=== PATIENT | female | born 1950 | race Caucasian/White ===

== ENCOUNTER → 2017-10-26 | Outpatient (CLI) | payer BC | END | disposition home or self-care (01) | LOC: KCIC MRI 09:25 | DX: M48.061 Spinal stenosis, lumbar region without neurogenic claudication (principal); M51.27 Other intervertebral disc displacement, lumbosacral region | CPT/HCPCS: 72148 ==

== ENCOUNTER 2019-12-20 11:24 | Inpatient (IN) | payer MEDICARE ==
[2019-12-20] VITALS (8 sets, daily range): BP systolic 114–166; BP diastolic 71–108
[~2019-12-20] VITALS: Ht 162.6 cm; Wt 92.1 kg
[~2019-12-20 11:24] MED LIST: ALPR0.25 PO; BYSTOLIC5 MG PO; CYCL10TA2 PO; FLUT1DIS IH; LEVO125T5 PO; OXYB10TA7 PO; RANI300C PO; SERT100T PO; TRAM50TA PO; VENTOLIN HFA18 GM INH
[2019-12-20] MEDS ORDERED: cefTRIAXone IV Push 1 GM VIAL. IVP ONE (11:45)
[2019-12-20] MEDS ORDERED: IV NORMAL SALINE 1000ML BAG 1,000 ML IV ONE (11:45)
--- NOTE | 2019-12-20 11:56 | RAD ---
EXAM: CHEST 1 VIEW History: Shortness of breath, chest pain COMPARISON: None available. TECHNIQUE: Single portable radiograph of the chest FINDINGS: The cardiac silhouette is unremarkable. Mild prominent appearing right hilum. The costophrenic sulci are clear and well demarcated. IMPRESSION: Mild prominent right hilum probably vascular prominence. Consider CT for further evaluation. Electronically signed by: Abdullahi Olsen MD (12/20/2019 11:53 AM) [id number]
[2019-12-20 12:26] LABS: BASO # 0.1 x10^3/uL (0.0-0.2); BASO % 1 % (0-3); EOS % 0 % (0-3); HEMATOCRIT 31.8 % (36.0-47.0); HEMOGLOBIN 9.7 g/dL (12.0-15.5); LYMPH # 1.1 x10^3/uL (1.0-4.8); LYMPH % 10 % (24-48); MEAN CORPUSCULAR HEMOGLOBIN 21 pg (25-35); MEAN CORPUSCULAR HGB CONC 31 g/dL (31-37); MEAN CORPUSCULAR VOLUME 68 fL (79-100); MONO # 0.5 x10^3/uL (0.0-1.1); MONO % 5 % (0-9); NEUT # 9.2 x10^3/uL (1.8-7.7); NEUT % 84 % (31-73); PLATELET COUNT 400 x10^3/uL (140-400); RED BLOOD COUNT 4.71 x10^6/uL (3.50-5.40); RED CELL DISTRIBUTION WIDTH 23.3 % (11.5-14.5); WHITE BLOOD COUNT 10.9 x10^3/uL (4.0-11.0)
[2019-12-20 12:35] LABS: CALCIUM 9.2 mg/dL (8.5-10.1); GFR 54.8
[2019-12-20 12:36] LABS: PROTHROMBIN TIME PATIENT 13.4 SEC (11.7-14.0)
[2019-12-20 12:41] LABS: ALBUMIN 3.1 g/dL (3.4-5.0); ALBUMIN/GLOBULIN RATIO 0.7 (1.0-1.7); TOTAL BILIRUBIN 0.7 mg/dL (0.2-1.0); TOTAL PROTEIN 7.4 g/dL (6.4-8.2)
[2019-12-20] MEDS ORDERED: IOHEXOL 350 MG/ML 100 ML VIAL. IV ONE (13:00)
--- NOTE | 2019-12-20 13:13 | PDOC2 ---
JONATHAN MEYER [employer] 12/20/19 1313: CARDIAC CONSULT DATE OF CONSULT Date of Consult DATE: 12/20/19 TIME: 13:09 REASON FOR CONSULT Reason for Consult: chest pain, AFIB RVR REFERRING PHYSICIAN Referring Physician: Carrington SOURCE Source: Chart review, Patient HISTORY OF PRESENT ILLNESS HISTORY OF PRESENT ILLNESS This is a pleasant 69 yo female admitted for complains of chest pain and shortness of breath. Reports that 2 weeks ago she twisted her knee and fell. No apparent injury. She also has bad lower back and was told that she needs lumbar fusion. Poisitive for radiculopathy and seen by Dr. Alba before. Her mobility has been decreased significantly in the last 2 weeks due to back and leg pain. No swelling on her legs. 2 days ago she started noticing SALDANA. This progressively got worse and actually woke up with it. She called her PCP reporting that her inhaler has not been working for her asthma. She has been having dry cough and wheezing. Also started having mid chest pressure but no nausea or vomiting. No sensation of palpitations but positive for dizziness. No fever or chills and no recent exposure to covid and she lives alone. She does not have any hx VTE, CAD. She was told of some narrowing of her valves in the past and may be some irregular heart rhythm but does not rrmebr of AFIB and has not been on any anticoagulation nor BP meds. No hx of bleeding or PUD. No HRT. PAST MEDICAL HISTORY Cardiovascular: Valve insufficiency (?) Pulmonary: Asthma CENTRAL NERVOUS SYSTEM: Other (lumbar radiculopathy; brain tumor 5 yrs ago, benign) GI: No pertinent hx Heme/Onc: No pertinent hx Hepatobiliary: No pertinent hx Psych: No pertinent hx Musculoskeletal: low back pain, Osteoarthritis Infectious disease: No pertinent hx ENT: No pertinent hx Renal/: No pertinent hx Endocrine: Hypothyroidism Dermatology: No pertinent hx PAST SURGICAL HISTORY Past Surgical History: Cholecystectomy, , Total knee replacement (bilateral remote), Hysterectomy, Other (craniotomy 5 yrs ago; ovarian cyst removal) FAMILY HISTORY Family History noncontributory to VTE nor CV SOCIAL HISTORY Smoke: No ALCOHOL: none Drugs: None Lives: Alone CURRENT MEDICATIONS CURRENT MEDICATIONS Current Medications Medications (Trade) Dose Ordered Sig/Danuta Route PRN Reason Start Time Stop Time Status Last Admin Dose Admin Sodium Chloride 1,000 ml @ 1,000 mls/hr 1X ONCE IV 12/20/19 11:45 12/20/19 12:44 DC 12/20/19 12:09 Ceftriaxone Sodium (Rocephin) 1 gm 1X ONCE IVP 12/20/19 11:45 12/20/19 11:47 DC 12/20/19 12:07 Metoprolol Tartrate (Lopressor Vial) 5 mg 1X ONCE IVP 12/20/19 13:15 12/20/19 13:16 12/20/19 13:03 ALLERGIES ALLERGIES: Coded Allergies: Sulfa (Sulfonamide Antibiotics) (Verified Allergy, Intermediate, 01/22/16) ROS Review of System 14 point ROS evaluated with pertinent positives noted per HPI PHYSICAL EXAM General: Alert, Oriented X3, Cooperative, No acute distress HEENT: Atraumatic, Mucous membr. moist/pink Lungs: Other (CTA reviewed + PE) Heart: Other (AFIB RVR) Abdomen: Soft, No tenderness Extremities: No cyanosis, No edema Skin: No breakdown, No significant lesion Neuro: Normal speech, Sensation intact Psych/Mental Status: Mental status NL, Mood NL MUSCULOSKELETAL: Osteoarthritic changes both hands VITALS/I&O VITALS/I&O: Vital Signs Date Time Temp Pulse Resp B/P (MAP) Pulse Ox O2 Delivery O2 Flow Rate FiO2 12/20/19 13:03 141 134/89 12/20/19 11:43 97.9 26 85 Nasal Cannula 3.0 97.9 LABS Lab: Laboratory Tests Test 12/20/19 12:05 White Blood Count 10.9 x10^3/uL (4.0-11.0) Red Blood Count 4.71 x10^6/uL (3.50-5.40) Hemoglobin 9.7 g/dL (12.0-15.5) L Hematocrit 31.8 % (36.0-47.0) L Mean Corpuscular Volume 68 fL (79-100) L Mean Corpuscular Hemoglobin 21 pg (25-35) L Mean Corpuscular Hemoglobin Concent 31 g/dL (31-37) Red Cell Distribution Width 23.3 % (11.5-14.5) H Platelet Count 400 x10^3/uL (140-400) Neutrophils (%) (Auto) 84 % (31-73) H Lymphocytes (%) (Auto) 10 % (24-48) L Monocytes (%) (Auto) 5 % (0-9) Eosinophils (%) (Auto) 0 % (0-3) Basophils (%) (Auto) 1 % (0-3) Neutrophils # (Auto) 9.2 x10^3/uL (1.8-7.7) H Lymphocytes # (Auto) 1.1 x10^3/uL (1.0-4.8) Monocytes # (Auto) 0.5 x10^3/uL (0.0-1.1) Eosinophils # (Auto) 0.0 x10^3/uL (0.0-0.7) Basophils # (Auto) 0.1 x10^3/uL (0.0-0.2) Platelet Estimate Pending Prothrombin Time 13.4 SEC (11.7-14.0) Prothrombin Time INR 1.1 (0.8-1.1) Activated Partial Thromboplast Time 34 SEC (24-38) Sodium Level 141 mmol/L (136-145) Potassium Level 4.0 mmol/L (3.5-5.1) Chloride Level 104 mmol/L (98-107) Carbon Dioxide Level 26 mmol/L (21-32) Anion Gap 11 (6-14) Blood Urea Nitrogen 24 mg/dL (7-20) H Creatinine 1.0 mg/dL (0.6-1.0) Estimated GFR (Cockcroft-Gault) 54.8 BUN/Creatinine Ratio 24 (6-20) H Glucose Level 150 mg/dL (70-99) H Lactic Acid Level 2.0 mmol/L (0.4-2.0) Calcium Level 9.2 mg/dL (8.5-10.1) Total Bilirubin 0.7 mg/dL (0.2-1.0) Aspartate Amino Transferase (AST) 26 U/L (15-37) Alanine Aminotransferase (ALT) 25 U/L (14-59) Alkaline Phosphatase 123 U/L (46-116) H Troponin I Quantitative 0.743 ng/mL (0.000-0.055) Total Protein 7.4 g/dL (6.4-8.2) Albumin 3.1 g/dL (3.4-5.0) L Albumin/Globulin Ratio 0.7 (1.0-1.7) L Lipase 89 U/L (73-393) Laboratory Tests 12/20/19 12:05 Laboratory Tests 12/20/19 12:05 ASSESSMENT/PLAN ASSESSMENT/PLAN 1. Chest pain: due to PE, AFIB and RV ischemia 2. Saddle PE 3. AFIB RVR: induced by PE 4. NSTEMI: likely associated RV ischemia with PE 5. Lumbar radiculopathy with significant decreased mobility with recent nontraumatic fall 6. Hypothyroidism: TSH 5 not on goal. on home replacement defer to PCP 7. Microcytic anemia: Fe def. Hgb at 9.7 Recommendations 1. ASA. Start on heparin per PE protocol. Consult pulmonary. Repeat EKG once HR is slower. 2. Presently being tested for covid. Will Obtain LE venous doppler and TTE once confirmed negative 3. Poor response to metoprolol. Dig IV x1 and if remains in RVR then will start on cardizem drip 4. Lipids. MANUEL WHIPPLE MD 12/20/199: CARDIAC CONSULT ASSESSMENT/PLAN ASSESSMENT/PLAN Agree with REGISTERED PHYSICAL THERAPIST's assessment and plan. Start cardizem gtt for AF rate control Trop elevation prob demand ischemia Continue heparin for stroke proph and change to eliquis prior to DC Agree with 2D echo if covid negative Thank you for your consultation JONATHAN MEYER APRN Dec 20, 2019 13:13 MANUEL WHIPPLE MD Dec 20, 2019 21:19
[2019-12-20] MEDS ORDERED: METOPROLOL TARTRATE 5 MG/5 ML VIAL. IVP ONE ×3 (13:15→14:45)
--- NOTE | 2019-12-20 13:21 | PDOC1 ---
History and Physical Date of Admission Date of Admission DATE: 12/20/19 TIME: 13:21 Identification/Chief Complaint Chief Complaint SEEN IN ER WITH ACUTE PE , 69 year old female who was brought here from home due to chest pain substernal started several hours ago. Patient called EMS, they gave her 324 mg aspirin and 1 dose of nitroglycerin. Patient says she has been sick with a cough for about 12 days. Patient denies any fever. Patient denies any history of heart problem. not sure if she been exposed to anybody who had coronavirus. CTA POS PE Past Medical History Cardiovascular: HTN, Hyperlipidemia Family History Family History: High Cholestrol, Hypertension Social History Smoke: <1 pack per day ALCOHOL: none Drugs: None Current Medications Current Medications Current Medications Sodium Chloride 1,000 ml @ 1,000 mls/hr 1X ONCE IV Last administered on 12/20/19at 12:09; Start 12/20/19 at 11:45; Stop 12/20/19 at 12:44; Status DC Ceftriaxone Sodium (Rocephin) 1 gm 1X ONCE IVP Last administered on 12/20/19at 12:07; Start 12/20/19 at 11:45; Stop 12/20/19 at 11:47; Status DC Iohexol (Omnipaque 350 Mg/ml) 90 ml 1X ONCE IV ; Start 12/20/19 at 13:00; Stop 12/20/19 at 13:01; Status DC Metoprolol Tartrate (Lopressor Vial) 5 mg 1X ONCE IVP Last administered on 12/20/19at 13:03; Start 12/20/19 at 13:15; Stop 12/20/19 at 13:16; Status DC Active Scripts Active Reported Ditropan Xl (Oxybutynin Chloride) 10 Mg Tab.er.24 10 Mg PO DAILY Zoloft (Sertraline Hcl) 100 Mg Tablet 100 Mg PO DAILY Ventolin Hfa Inhaler (Albuterol Sulfate) 18 Gm Hfa.aer.ad 2 Puff INH QID Advair 100-50 Diskus (Fluticasone/Salmeterol) 1 Each Disk.w.dev 1 Inh IH BID Xanax (Alprazolam) 0.25 Mg Tablet 0.25 Mg PO PRN Q6HRS PRN Cyclobenzaprine Hcl 10 Mg Tablet 10 Mg PO TID Levothyroxine Sodium 125 Mcg Tablet 125 Mcg PO DAILYAC Ranitidine Hcl 300 Mg Capsule 300 Mg PO DAILY Tramadol Hcl 50 Mg Tablet 50 Mg PO DAILY PRN Bystolic (Nebivolol) 5 Mg Tablet 5 Mg PO DAILY Allergies Allergies: Coded Allergies: Sulfa (Sulfonamide Antibiotics) (Verified Allergy, Intermediate, 01/22/16) ROS Review of System Constitutional: Denies fever or chills. [] Eyes: Denies change in visual acuity. [] HENT: Denies nasal congestion or sore throat. [] Respiratory: Positive for cough and trouble breathing Cardiovascular: Positive for chest pain GI: Denies abdominal pain, nausea, vomiting, bloody stools or diarrhea. [] : Denies dysuria. [] Musculoskeletal: Denies back pain or joint pain. [] Integument: Denies rash. [] Neurologic: Denies headache, focal weakness or sensory changes. [] Endocrine: Denies polyuria or polydipsia. [] Lymphatic: Denies swollen glands. [] Psychiatric: Denies depression or anxiety. [] 14 PT ROS OTHERWISE NEG Hematological and Lymphatic: No: Bleeding Problems, Blood Clots, Blood Transfusions, Brusing, Night Sweats, Pallor, Swollen Lymph Nodes, Other Respiratory: YES: Cough, Shortness of breath Musculoskeletal: Yes Gait Disturbance Physical Exam Physical Exam Constitutional: Well developed, well nourished, MILD acute distress, non-toxic appearance. [] HENT: Normocephalic, atraumatic, bilateral external ears normal, oropharynx moist, no oral exudates, nose normal. [] Eyes: PERRLA, EOMI, conjunctiva normal, no discharge. [] Neck: Normal range of motion, no tenderness, supple, no stridor. [] Cardiovascular: RAPID Heart rate Irregular rhythm, no murmur [] Lungs & Thorax: Bilateral breath sounds with diminshed throughout to auscultation [] Abdomen: Bowel sounds normal, soft, no tenderness, no masses, no pulsatile masses. [] Skin: Warm, dry, no erythema, no rash. [] Back: No tenderness, no CVA tenderness. [] Extremities: No tenderness, no cyanosis, no clubbing, ROM intact, no edema. [] Neurologic: Alert and oriented X 3, normal motor function, normal sensory function, no focal deficits noted. [] Psychologic: Affect normal, judgement normal, mood normal. [] General: Alert, Oriented X3, Cooperative HEENT: Atraumatic, EOMI, Mucous membr. moist/pink Lungs: Normal air movement Breasts: Not examined Abdomen: Normal bowel sounds, Soft Rectal Exam: not examined Extremities: No cyanosis Neuro: Normal speech, Cranial nerves 3-12 NL Psych/Mental Status: Mental status NL, Mood NL Vitals Vitals Vital Signs Date Time Temp Pulse Resp B/P (MAP) Pulse Ox O2 Delivery O2 Flow Rate FiO2 12/20/19 13:03 141 134/89 12/20/19 11:43 97.9 26 85 Nasal Cannula 3.0 97.9 Labs Labs Laboratory Tests Test 12/20/19 12:05 White Blood Count 10.9 x10^3/uL (4.0-11.0) Red Blood Count 4.71 x10^6/uL (3.50-5.40) Hemoglobin 9.7 g/dL (12.0-15.5) Hematocrit 31.8 % (36.0-47.0) Mean Corpuscular Volume 68 fL (79-100) Mean Corpuscular Hemoglobin 21 pg (25-35) Mean Corpuscular Hemoglobin Concent 31 g/dL (31-37) Red Cell Distribution Width 23.3 % (11.5-14.5) Platelet Count 400 x10^3/uL (140-400) Neutrophils (%) (Auto) 84 % (31-73) Lymphocytes (%) (Auto) 10 % (24-48) Monocytes (%) (Auto) 5 % (0-9) Eosinophils (%) (Auto) 0 % (0-3) Basophils (%) (Auto) 1 % (0-3) Neutrophils # (Auto) 9.2 x10^3/uL (1.8-7.7) Lymphocytes # (Auto) 1.1 x10^3/uL (1.0-4.8) Monocytes # (Auto) 0.5 x10^3/uL (0.0-1.1) Eosinophils # (Auto) 0.0 x10^3/uL (0.0-0.7) Basophils # (Auto) 0.1 x10^3/uL (0.0-0.2) Prothrombin Time 13.4 SEC (11.7-14.0) Prothromb Time International Ratio 1.1 (0.8-1.1) Activated Partial Thromboplast Time 34 SEC (24-38) Sodium Level 141 mmol/L (136-145) Potassium Level 4.0 mmol/L (3.5-5.1) Chloride Level 104 mmol/L (98-107) Carbon Dioxide Level 26 mmol/L (21-32) Anion Gap 11 (6-14) Blood Urea Nitrogen 24 mg/dL (7-20) Creatinine 1.0 mg/dL (0.6-1.0) Estimated GFR (Cockcroft-Gault) 54.8 BUN/Creatinine Ratio 24 (6-20) Glucose Level 150 mg/dL (70-99) Lactic Acid Level 2.0 mmol/L (0.4-2.0) Calcium Level 9.2 mg/dL (8.5-10.1) Total Bilirubin 0.7 mg/dL (0.2-1.0) Aspartate Amino Transf (AST/SGOT) 26 U/L (15-37) Alanine Aminotransferase (ALT/SGPT) 25 U/L (14-59) Alkaline Phosphatase 123 U/L (46-116) Troponin I Quantitative 0.743 ng/mL (0.000-0.055) Total Protein 7.4 g/dL (6.4-8.2) Albumin 3.1 g/dL (3.4-5.0) Albumin/Globulin Ratio 0.7 (1.0-1.7) Lipase 89 U/L (73-393) Laboratory Tests Test 12/20/19 12:05 White Blood Count 10.9 x10^3/uL (4.0-11.0) Red Blood Count 4.71 x10^6/uL (3.50-5.40) Hemoglobin 9.7 g/dL (12.0-15.5) Hematocrit 31.8 % (36.0-47.0) Mean Corpuscular Volume 68 fL (79-100) Mean Corpuscular Hemoglobin 21 pg (25-35) Mean Corpuscular Hemoglobin Concent 31 g/dL (31-37) Red Cell Distribution Width 23.3 % (11.5-14.5) Platelet Count 400 x10^3/uL (140-400) Neutrophils (%) (Auto) 84 % (31-73) Lymphocytes (%) (Auto) 10 % (24-48) Monocytes (%) (Auto) 5 % (0-9) Eosinophils (%) (Auto) 0 % (0-3) Basophils (%) (Auto) 1 % (0-3) Neutrophils # (Auto) 9.2 x10^3/uL (1.8-7.7) Lymphocytes # (Auto) 1.1 x10^3/uL (1.0-4.8) Monocytes # (Auto) 0.5 x10^3/uL (0.0-1.1) Eosinophils # (Auto) 0.0 x10^3/uL (0.0-0.7) Basophils # (Auto) 0.1 x10^3/uL (0.0-0.2) Prothrombin Time 13.4 SEC (11.7-14.0) Prothromb Time International Ratio 1.1 (0.8-1.1) Activated Partial Thromboplast Time 34 SEC (24-38) Sodium Level 141 mmol/L (136-145) Potassium Level 4.0 mmol/L (3.5-5.1) Chloride Level 104 mmol/L (98-107) Carbon Dioxide Level 26 mmol/L (21-32) Anion Gap 11 (6-14) Blood Urea Nitrogen 24 mg/dL (7-20) Creatinine 1.0 mg/dL (0.6-1.0) Estimated GFR (Cockcroft-Gault) 54.8 BUN/Creatinine Ratio 24 (6-20) Glucose Level 150 mg/dL (70-99) Lactic Acid Level 2.0 mmol/L (0.4-2.0) Calcium Level 9.2 mg/dL (8.5-10.1) Total Bilirubin 0.7 mg/dL (0.2-1.0) Aspartate Amino Transf (AST/SGOT) 26 U/L (15-37) Alanine Aminotransferase (ALT/SGPT) 25 U/L (14-59) Alkaline Phosphatase 123 U/L (46-116) Troponin I Quantitative 0.743 ng/mL (0.000-0.055) Total Protein 7.4 g/dL (6.4-8.2) Albumin 3.1 g/dL (3.4-5.0) Albumin/Globulin Ratio 0.7 (1.0-1.7) Lipase 89 U/L (73-393) Images Images Study: CT CHEST WITH CONTRAST - PULMONARY ANGIOGRAM History: Chest pain. Shortness of air. Pulmonary embolism. Comparison: None. Technique: Helical CT of the chest performed after the administration of 90 cc Omnipaque 350 intravenous contrast and timed for angiographic evaluation of the pulmonary arteries per PE protocol. Coronal and sagittal 3D MIP reformations were obtained. One or more of the following individualized dose reduction techniques were utilized for this examination: 1. Automated exposure control 2. Adjustment of the mA and/or kV according to patient size 3. Use of iterative reconstruction technique. Findings: Pulmonary Arteries: Extensive pulmonary embolic burden to include a saddle embolism measuring up to 0.8 cm in thickness. Emboli are present within both main pulmonary arteries and involve lobar and segmental branches to all lung lobes. The main pulmonary artery is prominent in transverse dimension at around 3.7 cm and there is right heart strain with interventricular septal deviation, enlargement of the right heart chambers and reflux of injected contrast far into the hepatic veins. Mediastinum: Moderate sized hiatal hernia. Lungs: Mosaic attenuation pattern of the lungs likely relating to oligemia. Ill-defined infiltrate at the subpleural right lower lobe but there is no wedge-shaped consolidation to suggest an infarct at this time. Neck/Axilla/Body Wall: No axillary adenopathy. What is seen of the breast tissue is relatively symmetric. Upper Abdomen: Hepatic steatosis. Surgically absent gallbladder. Fatty infiltration of the pancreas. Small exophytic focus off the upper pole of the right kidney, image 148 series 4, measures around 10 Hounsfield units most compatible with a cyst. Similar finding at the anterior aspect of the upper right kidney. No adrenal gland mass. Bones: Partially imaged advanced arthrosis at the right shoulder. Multifocal degenerative changes throughout the visualized spine on a background of sigmoid curvature. Varying degrees of osseous neural foraminal encroachment. Chronic ununited fracture of the lateral right eighth rib. Miscellaneous: None. IMPRESSION: 1. Extensive acute pulmonary emboli to include a saddle embolism, emboli within both main pulmonary arteries and involvement of the lobar and segmental branches to all lung lobes. This results in pronounced right heart strain. No well-formed pulmonary infarct at this time. 2. Moderate-sized hiatal hernia, hepatic steatosis and additional chronic findings as above. FOR INTERNAL CODING PURPOSES RESULT CODE: (C) The results of the study were discussed with Dr. Shultz by Dr. Reeder via telephone on 12/20/2019 at 1340 hours. Electronically signed by: KT REEDER MD (12/20/2019 1:56 PM) [id number] DICTATED and SIGNED BY: KT REEDER MD DATE: 12/20/19 1356 EXAM: CHEST 1 VIEW History: Shortness of breath, chest pain COMPARISON: None available. TECHNIQUE: Single portable radiograph of the chest FINDINGS: The cardiac silhouette is unremarkable. Mild prominent appearing right hilum. The costophrenic sulci are clear and well demarcated. IMPRESSION: Mild prominent right hilum probably vascular prominence. Consider CT for further evaluation. Electronically signed by: Abdullahi Olsen MD (12/20/2019 11:53 AM) [id number] DICTATED and SIGNED BY: ABDULLAHI OLSEN MD DATE: 12/20/19 1153 VTE Prophylaxis Ordered VTE Prophylaxis Devices: No VTE Pharmacological Prophylaxi: Yes Assessment/Plan Assessment/Plan IMPRESSION 1. Chest pain: due to PE, AFIB and RV ischemia Extensive acute pulmonary emboli to include a saddle embolism, emboli within both main pulmonary arteries and involvement of the lobar and segmental branches to all lung lobes. // pronounced right heart strain. No well-formed pulmonary infarct at this time. 2. Moderate-sized hiatal hernia, hepatic steatosis 3. Saddle PE ACUTE 4. AFIB RVR: 5. NSTEMI: likely associated RV ischemia with PE 6. Lumbar radiculopathy // recent nontraumatic fall 7. Hypothyroidism: TSH 5 8. Microcytic anemia: Fe 9. MORBID OBESITY PLAN 1. heparin per PE protocol. Consult pulmonary. 2. R/O covid. -19 3,LE venous doppler and TTE once confirmed negative 4. Metoprolol IV. If not wheezing then will start on metoprolol PO. 5. Lipids. 6. CONSULT CARDIOLOGY 7. CONSULT PULM 77 MIN pt exam, chart review, > 50% of time spent with exam, chart review, pt care coordination Justicifation of Admission Dx: Justifications for Admission: Justification of Admission Dx: Yes Comments: OMER Joshi MD Dec 20, 2019 13:21
[2019-12-20] MEDS ORDERED: HEPARIN for IV BOLUS 10,000 UNIT/10 ML VIAL. IV PRN ×3 (13:30→14:15)
[2019-12-20] MEDS ORDERED: HEPARIN 25,000UTS/250ML PREMIX 250 ML IV PRN (13:30)
[2019-12-20 13:37] LABS: CHOLESTEROL/HDL RATIO 2.2
[2019-12-20] MEDS ORDERED: ONDANSETRON PF 4 MG/2 ML VIAL. IV PRN (13:45)
[2019-12-20 13:57] LABS: PLT ESTIMATE ADEQUATE (ADEQUATE)
--- NOTE | 2019-12-20 13:57 | PHYS DOC ---
Past Medical History Past Medical History: Asthma Additional Past Medical Histor: CHRONIC BACK PAIN Past Surgical History: Cholecystectomy, Knee Replacement Smoking Status: Never Smoker Alcohol Use: None General Adult EDM: Chief Complaint: CHEST PAIN HPI: HPI: Patient is a 69 year old female who was brought here from home due to chest pain substernal started several hours ago. Patient called EMS, they gave her 324 mg aspirin and 1 dose of nitroglycerin. Patient says she has been sick with a cough for about 12 days. Patient denies any fever. Patient denies any history of heart problem. Patient is not sure if she been exposed to anybody who had the coronavirus. Patient had no history of blood clot disorder. Patient denied recent travel or operation. Review of Systems: Review of Systems: Constitutional: Denies fever or chills. [] Eyes: Denies change in visual acuity. [] HENT: Denies nasal congestion or sore throat. [] Respiratory: Positive for cough and trouble breathing Cardiovascular: Positive for chest pain GI: Denies abdominal pain, nausea, vomiting, bloody stools or diarrhea. [] : Denies dysuria. [] Musculoskeletal: Denies back pain or joint pain. [] Integument: Denies rash. [] Neurologic: Denies headache, focal weakness or sensory changes. [] Endocrine: Denies polyuria or polydipsia. [] Lymphatic: Denies swollen glands. [] Psychiatric: Denies depression or anxiety. [] Heart Score: HEART Score for Chest Pain: HEART Score for Chest Pain Response (Comments) Value History Moderately Suspicious 1 ECG Nonspecific Repolarizatio 1 Age > 65 2 Risk Factors 1 or 2 Risk Factors 1 Troponin >1-<3x Normal Limit 1 Total 6 Risk Factors: Risk Factors: DM, Current or recent (<one month) smoker, HTN, HLP, family history of CAD, obesity. Risk Scores: Score 0 - 3: 2.5% MACE over next 6 weeks - Discharge Home Score 4 - 6: 20.3% MACE over next 6 weeks - Admit for Clinical Observation Score 7 - 10: 72.7% MACE over next 6 weeks - Early Invasive Strategies Current Medications: Current Medications Medications (Trade) Dose Ordered Sig/Danuta Start Time Stop Time Status Last Admin Dose Admin Ceftriaxone Sodium (Rocephin) 1 gm 1X ONCE 12/20/19 11:45 12/20/19 11:47 DC 12/20/19 12:07 1 GM Heparin Sodium (Porcine) (Heparin Sodium) 2,150 unit PRN Q6HRS PRN 12/20/19 13:30 12/20/19 13:45 2,150 UNIT Heparin Sodium/ Dextrose 250 ml @ 0 mls/hr CONT PRN 12/20/19 13:30 12/20/19 13:47 10.4 MLS/HR Iohexol (Omnipaque 350 Mg/ml) 90 ml 1X ONCE 12/20/19 13:00 12/20/19 13:01 DC Metoprolol Tartrate (Lopressor Vial) 5 mg 1X ONCE 12/20/19 13:15 12/20/19 13:16 DC 12/20/19 13:03 5 MG Ondansetron HCl (Zofran) 4 mg PRN Q8HRS PRN 12/20/19 13:45 12/21/19 13:44 Sodium Chloride 1,000 ml @ 1,000 mls/hr 1X ONCE 12/20/19 11:45 12/20/19 12:44 DC 12/20/19 12:09 1,000 MLS/HR Allergies: Allergies: Allergies Coded Allergies Type Severity Reaction Last Updated Verified Sulfa (Sulfonamide Antibiotics) Allergy Intermediate 01/22/16 Yes Physical Exam: PE: Constitutional: Well developed, well nourished, MILD acute distress, non-toxic appearance. [] HENT: Normocephalic, atraumatic, bilateral external ears normal, oropharynx moist, no oral exudates, nose normal. [] Eyes: PERRLA, EOMI, conjunctiva normal, no discharge. [] Neck: Normal range of motion, no tenderness, supple, no stridor. [] Cardiovascular: RAPID Heart rate Irregular rhythm, no murmur [] Lungs & Thorax: Bilateral breath sounds with diminshed throughout to auscultation [] Abdomen: Bowel sounds normal, soft, no tenderness, no masses, no pulsatile masses. [] Skin: Warm, dry, no erythema, no rash. [] Back: No tenderness, no CVA tenderness. [] Extremities: No tenderness, no cyanosis, no clubbing, ROM intact, no edema. [] Neurologic: Alert and oriented X 3, normal motor function, normal sensory function, no focal deficits noted. [] Psychologic: Affect normal, judgement normal, mood normal. [] Current Patient Data: Labs: Laboratory Tests Test 12/20/19 12:05 White Blood Count 10.9 x10^3/uL (4.0-11.0) Red Blood Count 4.71 x10^6/uL (3.50-5.40) Hemoglobin 9.7 g/dL (12.0-15.5) L Hematocrit 31.8 % (36.0-47.0) L Mean Corpuscular Volume 68 fL (79-100) L Mean Corpuscular Hemoglobin 21 pg (25-35) L Mean Corpuscular Hemoglobin Concent 31 g/dL (31-37) Red Cell Distribution Width 23.3 % (11.5-14.5) H Platelet Count 400 x10^3/uL (140-400) Neutrophils (%) (Auto) 84 % (31-73) H Lymphocytes (%) (Auto) 10 % (24-48) L Monocytes (%) (Auto) 5 % (0-9) Eosinophils (%) (Auto) 0 % (0-3) Basophils (%) (Auto) 1 % (0-3) Neutrophils # (Auto) 9.2 x10^3/uL (1.8-7.7) H Lymphocytes # (Auto) 1.1 x10^3/uL (1.0-4.8) Monocytes # (Auto) 0.5 x10^3/uL (0.0-1.1) Eosinophils # (Auto) 0.0 x10^3/uL (0.0-0.7) Basophils # (Auto) 0.1 x10^3/uL (0.0-0.2) Platelet Estimate Pending Prothrombin Time 13.4 SEC (11.7-14.0) Prothrombin Time INR 1.1 (0.8-1.1) Activated Partial Thromboplast Time 34 SEC (24-38) D-Dimer (Yadira) 6.57 ug/mlFEU (0.00-0.50) H Sodium Level 141 mmol/L (136-145) Potassium Level 4.0 mmol/L (3.5-5.1) Chloride Level 104 mmol/L (98-107) Carbon Dioxide Level 26 mmol/L (21-32) Anion Gap 11 (6-14) Blood Urea Nitrogen 24 mg/dL (7-20) H Creatinine 1.0 mg/dL (0.6-1.0) Estimated GFR (Cockcroft-Gault) 54.8 BUN/Creatinine Ratio 24 (6-20) H Glucose Level 150 mg/dL (70-99) H Lactic Acid Level 2.0 mmol/L (0.4-2.0) Calcium Level 9.2 mg/dL (8.5-10.1) Magnesium Level 2.0 mg/dL (1.8-2.4) Total Bilirubin 0.7 mg/dL (0.2-1.0) Aspartate Amino Transferase (AST) 26 U/L (15-37) Alanine Aminotransferase (ALT) 25 U/L (14-59) Alkaline Phosphatase 123 U/L (46-116) H Troponin I Quantitative 0.743 ng/mL (0.000-0.055) Total Protein 7.4 g/dL (6.4-8.2) Albumin 3.1 g/dL (3.4-5.0) L Albumin/Globulin Ratio 0.7 (1.0-1.7) L Triglycerides Level 78 mg/dL (0-150) Cholesterol Level 130 mg/dL (0-200) LDL Cholesterol, Calculated 54 mg/dL (0-100) VLDL Cholesterol, Calculated 16 mg/dL (0-40) Non-HDL Cholesterol Calculated 70 mg/dL (0-129) HDL Cholesterol 60 mg/dL (40-60) Cholesterol/HDL Ratio 2.2 Lipase 89 U/L (73-393) Thyroid Stimulating Hormone (TSH) 5.058 uIU/mL (0.358-3.74) H Laboratory Tests 12/20/19 12:05 Laboratory Tests 12/20/19 12:05 Vital Signs: Vital Signs Date Time Temp Pulse Resp B/P (MAP) Pulse Ox O2 Delivery O2 Flow Rate FiO2 12/20/19 13:03 141 134/89 12/20/19 11:43 97.9 26 85 Nasal Cannula 3.0 97.9 EKG: EKG: EKG was done at 1129, heart rate of 143 beats per minute, A. fib with RVR, no ST segment elevation. Radiology/Procedures: Radiology/Procedures: [][facility] [address] [place] [address] IMAGING REPORT Signed PATIENT: JOSE CARL ACCOUNT: [id number] : 1950 LOCATION: ER AGE: 69 SEX: F EXAM STATUS: PRE ER ORD. PHYSICIAN: AIMEE LAWSON DO REASON: soa, chest pain PROCEDURE: CHEST AP ONLY EXAM: CHEST 1 VIEW History: Shortness of breath, chest pain COMPARISON: None available. TECHNIQUE: Single portable radiograph of the chest FINDINGS: The cardiac silhouette is unremarkable. Mild prominent appearing right hilum. The costophrenic sulci are clear and well demarcated. IMPRESSION: Mild prominent right hilum probably vascular prominence. Consider CT for further evaluation. Electronically signed by: Abdullahi Olsen MD (12/20/2019 11:53 AM) [id number] DICTATED and SIGNED BY: ABDULLAHI OLSEN MD DATE: 12/20/19 1152 Course & Med Decision Making: Course & Med Decision Making Pertinent Labs and Imaging studies reviewed. (See chart for details) Patient is a 69-year-old female who was brought here for evaluation due to chest pain that started several hours ago. Patient also has been sick with cough for about 12 days. Patient is suspected of COVID-19 infection. Upon arrival to ER, patient's heart rate was between 130 to 150 bpm, atrial fibrillation with RVR. Patient was found to have a saddle embolus, her blood pressure however has been good. Discussed with interventional radiologist Dr. Doug Buckley who recommended heparin treatment, no IV TPA due to normal blood pressure. Discussed with Dr. Chaney about afib with RVR. Discussed with Dr. Glass , hospitalist who agreed to admit patient. Critical care time was [45] minutes which includes time at bedside, spent in discussion of patient's care with specialist and/or family members, with interpretation of laboratory and/or radiological studies and is exclusive of procedures. Dragon Disclaimer: Dragon Disclaimer: This electronic medical record was generated, in whole or in part, using a voice recognition dictation system. Departure Departure Impression: Primary Impression: Saddle embolism of pulmonary artery Additional Impressions: Chest pain Atrial fibrillation with RVR Suspected COVID-19 virus infection Disposition: 09 ADMITTED INPATIENT Admitting Physician: TORSTEN MarDR. GLASS) Condition: IMPROVED Referrals: UNKNOWN PCP NAME (PCP) Justicifation of Admission Dx: Justifications for Admission: Justification of Admission Dx: Yes AIMEE LAWSON DO Dec 20, 2019 13:57
[2019-12-20 13:58] LABS: ANISOCYTOSIS MOD; MICROCYTOSIS MARKED; OVALOCYTES FEW
[2019-12-20 13:59] LABS: HYPOCHROMIA MOD; POLYCHROMASIA SLIGHT
--- NOTE | 2019-12-20 13:59 | RAD ---
Study: CT CHEST WITH CONTRAST - PULMONARY ANGIOGRAM History: Chest pain. Shortness of air. Pulmonary embolism. Comparison: None. Technique: Helical CT of the chest performed after the administration of 90 cc Omnipaque 350 intravenous contrast and timed for angiographic evaluation of the pulmonary arteries per PE protocol. Coronal and sagittal 3D MIP reformations were obtained. One or more of the following individualized dose reduction techniques were utilized for this examination: 1. Automated exposure control 2. Adjustment of the mA and/or kV according to patient size 3. Use of iterative reconstruction technique. Findings: Pulmonary Arteries: Extensive pulmonary embolic burden to include a saddle embolism measuring up to 0.8 cm in thickness. Emboli are present within both main pulmonary arteries and involve lobar and segmental branches to all lung lobes. The main pulmonary artery is prominent in transverse dimension at around 3.7 cm and there is right heart strain with interventricular septal deviation, enlargement of the right heart chambers and reflux of injected contrast far into the hepatic veins. Mediastinum: Moderate sized hiatal hernia. Lungs: Mosaic attenuation pattern of the lungs likely relating to oligemia. Ill-defined infiltrate at the subpleural right lower lobe but there is no wedge-shaped consolidation to suggest an infarct at this time. Neck/Axilla/Body Wall: No axillary adenopathy. What is seen of the breast tissue is relatively symmetric. Upper Abdomen: Hepatic steatosis. Surgically absent gallbladder. Fatty infiltration of the pancreas. Small exophytic focus off the upper pole of the right kidney, image 148 series 4, measures around 10 Hounsfield units most compatible with a cyst. Similar finding at the anterior aspect of the upper right kidney. No adrenal gland mass. Bones: Partially imaged advanced arthrosis at the right shoulder. Multifocal degenerative changes throughout the visualized spine on a background of sigmoid curvature. Varying degrees of osseous neural foraminal encroachment. Chronic ununited fracture of the lateral right eighth rib. Miscellaneous: None. IMPRESSION: 1. Extensive acute pulmonary emboli to include a saddle embolism, emboli within both main pulmonary arteries and involvement of the lobar and segmental branches to all lung lobes. This results in pronounced right heart strain. No well-formed pulmonary infarct at this time. 2. Moderate-sized hiatal hernia, hepatic steatosis and additional chronic findings as above. FOR INTERNAL CODING PURPOSES RESULT CODE: (C) The results of the study were discussed with Dr. Shultz by Dr. Reeder via telephone on 12/20/2019 at 1340 hours. Electronically signed by: KT REEDER MD (12/20/2019 1:56 PM) [id number]
[2019-12-20 14:02] LABS: TOXIC GRANULATION SLIGHT
[2019-12-20] MEDS ORDERED: METOPROLOL SUCC 24HR ER 25 MG TAB.ER.24H. PO SCH (14:30)
[2019-12-20] MEDS: HEPARIN 25,000UTS/250ML PREMIX 250 ML IV PRN (14:31)
[2019-12-20] MEDS ORDERED: ASPIRIN ENTERIC COATED 325 MG TABLET.DR. PO ONE (14:45)
[2019-12-20] MEDS ORDERED: DIGOXIN IV 500 MCG/2 ML AMPUL. IV ONE (16:15)
--- NOTE | 2019-12-20 16:22 | CONS ---
DATE OF CONSULTATION: PULMONARY CONSULTATION ATTENDING PHYSICIAN: Dr. Paula. REASON FOR CONSULTATION: Acute pulmonary embolism. HISTORY OF PRESENT ILLNESS: The patient is a 69-year-old pleasant female with a BMI of 32.8. No significant tobacco history. She presented to the Emergency Room with complaint of chest pain and shortness of breath. She states that 2 weeks ago, she twisted her knee and fell. There was no obvious injury. She also has been battling with bad lower back pain and she was told by Dr. Alba that she would need lumbar fusion. Her mobility has been decreased in the last few weeks. The patient began to have shortness of breath and chest pain. She also said that she had at least twice near syncopal episodes. She denied any leg swelling. No headaches, no nausea, vomiting, no diarrhea, no dysuria. She has no prior history of thromboembolic disease. No family history of thromboembolic disease. She was noted to be in atrial fibrillation with RVR, as a part of workup CTA chest was performed and it showed extensive acute pulmonary emboli including a saddle embolism within both main pulmonary arteries and involvement of the lobar and segmental branches to all the lobes. There was evidence of some right heart strain. There was moderate size hiatal hernia and hepatic steatosis. I saw the patient in the Emergency Room. She appeared to be comfortable while on nasal cannula at 5 liters with saturation of 93%. Her blood pressure was stable, ranging 127 systolic to 138 systolic. Consultation requested for further evaluation and management. PAST MEDICAL HISTORY: History of lumbar radiculopathy. History of benign brain tumor 5 years ago. No recent surgeries in the last 6 weeks. No history of any malignancy. No history of any bleeding ulcer. History of low back pain, history of osteoarthritis, and hypothyroidism. PAST SURGICAL HISTORY: Cholecystectomy, , total knee replacement, bilateral. History of hysterectomy and craniotomy 5 years ago and history of ovarian cyst removal. FAMILY HISTORY: Noncontributory to any thromboembolic disease. There is no family history of thromboembolic disease. SOCIAL HISTORY: Nonsmoker, nonalcoholic. ALLERGIES: SULFA. MEDICATIONS: That were given in the ER were reviewed including heparin per protocol. REVIEW OF SYSTEMS: Twelve-point system obtained. Pertinent positives discussed in my history of present illness, otherwise noncontributory. All systems that were negative were reviewed as well. PHYSICAL EXAMINATION: GENERAL: She is comfortable while on nasal cannula at 5 liters 93% saturation. VITAL SIGNS: Blood pressure is stable. HEENT: Sclerae nonicteric. NECK: Supple. LUNGS: With diminished breath sounds. CARDIOVASCULAR: With a regular rate. ABDOMEN: Soft, obese. EXTREMITIES: With no pitting edema. LABORATORY DATA: Reviewed. Her D-dimer was 6.57. BUN 24, creatinine 1.0. TSH 5.05. White cell count 10.9, hemoglobin 9.7, platelets are 400. IMPRESSION: 1. Acute hypoxic respiratory failure secondary to acute pulmonary embolism with hemodynamic stability . Risk factor is likely related to recent immobility for the last 2 weeks due to her lumbar radiculopathy and also from the fall when she twisted her knee. Underlying obesity would be another risk factor. She has no known cancers. Not on any form of estrogens. 2. Atrial fibrillation with rapid ventricular response, likely caused by right ventricular strain. 3. No significant tobacco history. 4. No history of any hypercoagulable state. RECOMMENDATIONS: 1. Discussed with the patient and RN. At this time, she is hemodynamically stable and we will continue with heparin per protocol. 2. I did discuss with her that in case if she becomes hemodynamically unstable, she may be a candidate for thrombolytic therapy. She does not have any risk factors for bleeding and she is agreeable with that if needed. 3. Management of AFib with RVR per Cardiology. 4. Obtain echocardiogram to assess for RV dysfunction. 5. Follow troponin level. Her initial level was 0.74 suggestive of RV ischemia. 6. Obtain venous Dopplers of lower extremities. 7. We will consider obtaining hypercoagulable panel as an outpatient. 8. Discussed with RN. Discussed with ER physician. We will follow the patient in the ICU under close observation. Critical care time 37 minutes including review of the chart, imaging studies and discussion with the patient regarding the plan of care. MARGE GLOVER MD DR: VICKEY/edith JOB#: [id number] / [id number] ANDREW
[2019-12-20] MEDS: DILTIAZEM HCL 125 MG in IV NORMAL SALINE 100ML 100 ML IV PRN (16:57)
[2019-12-20] MEDS: CYCLOBENZAPRINE 10 MG TABLET. PO SCH (21:00)
[2019-12-21] VITALS (27 sets, daily range): BP systolic 65–150; BP diastolic 48–92
[2019-12-21] MEDS: DILTIAZEM HCL 125 MG in IV NORMAL SALINE 100ML 100 ML IV PRN ×3 (00:09→19:05)
[2019-12-21] MEDS: LEVOTHYROXINE 125 MCG TABLET PO SCH (05:50)
[2019-12-21 06:06] LABS: BILIRUBIN,URINE NEGATIVE (NEG); CLARITY,URINE CLEAR; COLOR,URINE YELLOW; NITRITE,URINE NEGATIVE (NEG); PROTEIN,URINE NEGATIVE (NEG-TRACE); UROBILINOGEN,URINE 0.2 mg/dL (0.2 mg/dL)
--- NOTE | 2019-12-21 06:15 | EKG ---
[facility] [address] [place] [address] Test Date: 2019-12-20 Test Time: 11:29:52 Pat Name: JOSE CARL Department: Room: Gender: F Veneer Taper: : 1950 Requested By: AIMEE LAWSON Order Number: [id number] Reading MD: Measurements Intervals [place] Rate: 143 P: [place]: QRS: -15 QRSD: 76 T: 64 QT: 304 QTc: 475 Interpretive Statements IRREGULAR RHYTHM, NO P-WAVE FOUND LEFTWARD AXIS ST & T ABNORMALITY, CONSIDER HIGH LATERAL ISCHEMIA OR LEFT VENTRICULAR STRAIN ABNORMAL ECG RI6.02 No previous ECG available for comparison
[2019-12-21 06:39] LABS: BACTERIA,URINE 0 /HPF (0-FEW)
[2019-12-21 06:56] LABS: HEMATOCRIT 30.9 % (36.0-47.0); HEMOGLOBIN 9.5 g/dL (12.0-15.5); RED BLOOD COUNT 4.53 x10^6/uL (3.50-5.40); RED CELL DISTRIBUTION WIDTH 23.2 % (11.5-14.5); WHITE BLOOD COUNT 10.6 x10^3/uL (4.0-11.0)
[2019-12-21 06:58] LABS: CALCIUM 8.8 mg/dL (8.5-10.1); CREATININE 0.8 mg/dL (0.6-1.0); GFR 70.9; POTASSIUM 3.8 mmol/L (3.5-5.1)
[2019-12-21 07:38] LABS: MAGNESIUM 2.1 mg/dL (1.8-2.4); PHOSPHORUS 3.2 mg/dL (2.6-4.7)
[2019-12-21] MEDS: CYCLOBENZAPRINE 10 MG TABLET. PO SCH ×3 (08:18→20:59)
[2019-12-21] MEDS ORDERED: ALTEPLASE 100 MG IV ONE (09:00)
--- NOTE | 2019-12-21 09:20 | PDOC ---
Provider Note Provider Note Note dictated will give TPA for massive PE/ RV infarction Justicifation of Admission Dx: Justifications for Admission: Justification of Admission Dx: Yes MARGE GLOVER MD Dec 21, 2019 09:20
--- NOTE | 2019-12-21 09:38 | PN ---
DATE: 12/21/2019 SUBJECTIVE: The patient has progressively become more hypoxic since last night and early this morning. She is currently on BiPAP at 100% FiO2, saturations are 98-99%. She is still hemodynamically stable. She has evidence of markedly increased troponin up to 31, suggesting severe RV ischemia. PHYSICAL EXAMINATION: GENERAL: She is alert, awake, on 100% BiPAP. Responds to questions. VITAL SIGNS: Blood pressure 130/63, pulse ox is 100% on 100% FiO2 with BiPAP. NECK: Supple. LUNGS: With diminished breath sounds bilaterally. CARDIOVASCULAR: With a regular rate. ABDOMEN: Soft. EXTREMITIES: With no pitting edema. LABORATORY DATA: Reviewed. White cell count 10.6, hemoglobin 9.5 and platelets are 381. BUN is 21 and a creatinine of 0.8. Troponin level is 31.9. IMPRESSION: 1. Acute hypoxic respiratory failure with worsening hypoxia, now on 100% FiO2 secondary to massive pulmonary embolism. 2. Markedly increased troponin level secondary to severe right ventricular infarction and ischemia. 3. Atrial fibrillation with rapid ventricular response on admission, caused by right ventricular strain. 4. No history of hypercoagulable state. 5. No absolute contraindication for TPA. RECOMMENDATIONS: 1. Discussed with the patient, her daughter and RN and RT. At this point, she is requiring 100% oxygen and her hypoxia has worsened. She has evidence of severe RV infarction with a troponin level of 31. I did a stat echocardiogram and it shows RV dilatation and no wall motion abnormality to suggest LV ischemia. She would be a candidate for TPA. I have also discussed with Dr. Chaney, Cardiology and he concurs with that. I have also discussed with Interventional Radiology, Dr. Buckley and there is no mortality benefit with catheter-directed TPA. We will do systemic TPA, 100 mg of TPA over 2 hours. 2. All the side effects of TPA including 4-5% chance of bleeding was explained to the patient and the daughterLisset in detail and the benefits of TPA exceeds the risk and they all agreed to proceed with it. 3. At some point, she may need a left heart cath. 4. Obtain venous Dopplers of lower extremities. 5. Suspicion for COVID is low. Awaiting the results. 6. Critical care time 45 minutes including discussion with multiple physicians, patient's daughter, the patient herself and decision making and review of the labs, and data. MARGE GLOVER MD DR: Leonid JOB#: [id number] / [id number]
--- NOTE | 2019-12-21 11:07 | CARD ---
MR#: [id number] Date of Study: 12/21/2019 Ordering Physician: MARGE GLOVER, Referring Physician: MARGE GLOVER, Tech: Jannette Castillo APPROVED REPORT EXAM: Two-dimensional and M-mode echocardiogram with Doppler and color Doppler. Other Information Quality : AverageHR: 104bpm INDICATION elevated Troponin 2D DIMENSIONS RVDd4.3 (2.9-3.5cm)Left Atrium(2D)4.0 (1.6-4.0cm) IVSd1.4 (0.7-1.1cm)Aortic Root(2D)3.1 (2.0-3.7cm) LVDd3.1 (3.9-5.9cm)LVOT Diameter1.8 (1.8-2.4cm) PWd1.2 (0.7-1.1cm)LVDs2.6 (2.5-4.0cm) FS (%) 18.8 %SV15.8 ml LVEF(%)40.0 (>50%) Aortic Valve AoV Peak Ruddy.160.6cm/sAoV VTI23.5cm AO Peak GR.10.3mmHgLVOT VTI 15.04cm AO Mean GR.6mmHg TDI Lateral E' P. V11.01cm/sMedial E' P. V9.14cm/s Tricuspid Valve TR P. [id number] [id number] TR Peak Gr.[id number] LEFT VENTRICLE The left ventricle is normal size. There is mild to moderate concentric left ventricular hypertrophy. The left ventricular systolic function is normal and the ejection fraction is within normal range. T he Ejection Fraction is 50%. There is normal LV segmental wall motion. Tissue Doppler imaging reveals moderate left ventricular diastolic dysfunction. RIGHT VENTRICLE The right ventricle is moderately to severly dilated measuring 5.2 cm. There is normal right ventricu lar wall thickness. The right ventricular systolic function is normal. ATRIA The left atrium is borderline dilated. The right atrium is moderately dilated. The interatrial septum bows toward left atrium consistent with elevated right atrial pressure. The interatrial septum is in tact with no evidence for an atrial septal defect or patent foramen ovale as noted on 2-D or Doppler imaging. AORTIC VALVE The aortic valve is thickened but opens well. Doppler and Color Flow revealed no significant aortic r egurgitation. There is no significant aortic valvular stenosis. Calculated aortic valve area is 1.69 cm2 with maximum pressure gradient of 10 mmHg and mean pressure gradient of 6 mmHg. MITRAL VALVE The mitral valve is thickened but opens well. There is no evidence of mitral valve prolapse. There is no mitral valve stenosis. Doppler and Color-flow revealed trace mitral regurgitation. TRICUSPID VALVE The tricuspid valve is normal in structure and function. Doppler and Color Flow revealed mild to mode rate tricuspid regurgitation with an estimated PAP of 71 mmHg. There is no tricuspid valve stenosis. PULMONIC VALVE The pulmonic valve is not well visualized. Doppler and Color Flow revealed trace to mild pulmonic tobin vular regurgitation. There is no pulmonic valvular stenosis. GREAT VESSELS The aortic root is normal in size. The IVC is dilated. PERICARDIAL EFFUSION There is no evidence of significant pericardial effusion. Critical Notification Critical Value: No <Conclusion> The left ventricular systolic function is normal and the ejection fraction is within normal range. Th e Ejection Fraction is 50%. There is normal LV segmental wall motion. The right ventricle is moderately to severly dilated measuring 5.2 cm. Doppler and Color Flow revealed mild to moderate tricuspid regurgitation with an estimated PAP of 71 mmHg. Signed by : Vitaliy Dixon, Electronically Approved : 12/21/2019 11:06:49
--- NOTE | 2019-12-21 12:24 | PDOC ---
[facility] [facility] PROGRESS NOTE Date of Service DOS: DATE: 12/21/19 TIME: 12:07 Chief Complaint Chief Complaint Acute hypoxic respiratory failure with worsening hypoxia secondary to saddle pulmonary embolism Markedly increased troponin level secondary to severe right ventricular infarction and ischemia Atrial fibrillation with rapid ventricular response induced by PE Hypertension Hyperlipidemia Lumbar radiculopathy with significant decreased mobility with recent nontraumatic fall Hypothyroidism Microcytic anemia History of Present Illness History of Present Illness 12/21/19 Patient seen and examined in the ICU Hypoxia is worsening and she is requiring 100% oxygen on BiPAP Troponin increased to 31, she has begun tPA per Dr. Buckley Echo this AM showed normal LV wall motion, EF 50%, RV dilation secondary to tricuspid regurgitation Awaiting COVID results Discussed with RN Chart reviewed Vitals/I&O Vitals/I&O: Vital Signs Date Time Temp Pulse Resp B/P (MAP) Pulse Ox O2 Delivery O2 Flow Rate FiO2 12/21/19 10:15 106 33 131/68 (89) 100 BiPAP/CPAP 12/21/19 08:00 97.9 97.9 12/20/19 22:00 15.0 I & O 12/20/19 12/20/19 12/21/19 15:00 23:00 07:00 Intake Total 1000 ml 50 ml 520.2 ml Output Total 275 ml 285 ml Balance 1000 ml -225 ml 235.2 ml Physical Exam General: Alert, Oriented X3, Cooperative, mild distress Heart: Other (AFIB RVR) Abdomen: Normal bowel sounds, Soft, No tenderness Extremities: No clubbing, No cyanosis Skin: No rashes, No breakdown, No significant lesion Labs Labs: Laboratory Tests Test 12/20/19 18:00 12/20/19 20:30 12/21/19 04:45 12/21/19 06:15 Troponin I Quantitative 10.842 ng/mL (0.000-0.055) 31.936 ng/mL (0.000-0.055) Heparin Anti-Xa Act, Unfractionated 1.00 IU/mL (0.30-0.70) 0.81 IU/mL (0.30-0.70) Urine Collection Type Unknown Urine Color Yellow Urine Clarity Clear Urine pH 5.0 (<5.0-8.0) Urine Specific [place] >=1.030 (1.000-1.030) Urine Protein Negative mg/dL (NEG-TRACE) Urine Glucose (UA) Negative mg/dL (NEG) Urine Ketones (Stick) 40 mg/dL (NEG) Urine Blood Negative (NEG) Urine Nitrite Negative (NEG) Urine Bilirubin Negative (NEG) Urine Urobilinogen Dipstick 0.2 mg/dL (0.2 mg/dL) Urine Leukocyte Esterase Negative (NEG) Urine RBC 6-10 /HPF (0-2) Urine WBC 5-10 /HPF (0-4) Urine Squamous Epithelial Cells None /LPF Urine Bacteria 0 /HPF (0-FEW) Urine Mucus Marked /LPF White Blood Count 10.6 x10^3/uL (4.0-11.0) Red Blood Count 4.53 x10^6/uL (3.50-5.40) Hemoglobin 9.5 g/dL (12.0-15.5) Hematocrit 30.9 % (36.0-47.0) Mean Corpuscular Volume 68 fL (79-100) Mean Corpuscular Hemoglobin 21 pg (25-35) Mean Corpuscular Hemoglobin Concent 31 g/dL (31-37) Red Cell Distribution Width 23.2 % (11.5-14.5) Platelet Count 381 x10^3/uL (140-400) Sodium Level 139 mmol/L (136-145) Potassium Level 3.8 mmol/L (3.5-5.1) Chloride Level 104 mmol/L (98-107) Carbon Dioxide Level 24 mmol/L (21-32) Anion Gap 11 (6-14) Blood Urea Nitrogen 21 mg/dL (7-20) Creatinine 0.8 mg/dL (0.6-1.0) Estimated GFR (Cockcroft-Gault) 70.9 Glucose Level 105 mg/dL (70-99) Calcium Level 8.8 mg/dL (8.5-10.1) Phosphorus Level 3.2 mg/dL (2.6-4.7) Magnesium Level 2.1 mg/dL (1.8-2.4) Assessment and Plan Assessmemt and Plan Problems Medical Problems: (1) Atrial fibrillation with RVR Status: Acute (2) Chest pain Status: Acute (3) Saddle embolism of pulmonary artery Status: Acute (4) Suspected COVID-19 virus infection Status: Acute ASSESSMENT Acute hypoxic respiratory failure with worsening hypoxia secondary to saddle pulmonary embolism Markedly increased troponin level secondary to severe right ventricular infarction and ischemia Atrial fibrillation with rapid ventricular response induced by PE Hypertension Hyperlipidemia Lumbar radiculopathy with significant decreased mobility with recent nontraumatic fall Hypothyroidism Microcytic anemia PLAN Undergoing tPA Oxygen supplementation with BiPAP Venous Doppler and TREVOR per cardiology Monitor hemoglobin Monitor ABGs Home meds Awaiting COVID results Full code Appreciate cardiology and pulmonology input Total time 31 min Comment Review of Relevant I have reviewed the following items winifred (where applicable) has been applied. Medications: Current Medications Medications (Trade) Dose Ordered Sig/Danuta Route PRN Reason Start Time Stop Time Status Last Admin Dose Admin Metoprolol Tartrate (Lopressor Vial) 5 mg 1X ONCE IVP 12/20/19 13:15 12/20/19 13:16 DC 12/20/19 13:03 Heparin Sodium/ Dextrose 250 ml @ 0 mls/hr CONT PRN IV PER PROTOCOL 12/20/19 13:30 12/20/19 14:19 DC 12/20/19 13:47 Heparin Sodium (Porcine) (Heparin Sodium) 2,150 unit PRN Q6HRS PRN IV FOR UFH LEVEL LESS THAN 0.2 12/20/19 13:30 12/20/19 14:19 DC 12/20/19 13:45 Ondansetron HCl (Zofran) 4 mg PRN Q8HRS PRN IV NAUSEA/VOMITING 12/20/19 13:45 12/21/19 13:44 12/20/19 17:31 Heparin Sodium/ Dextrose 250 ml @ 0 mls/hr CONT PRN IV PER PROTOCOL 12/20/19 14:15 12/20/19 14:31 Metoprolol Tartrate (Lopressor Vial) 5 mg 1X ONCE IVP 12/20/19 14:45 12/20/19 14:46 DC 12/20/19 14:52 Digoxin (Lanoxin) 500 mcg 1X ONCE IV 12/20/19 16:15 12/20/19 16:16 DC 12/20/19 15:59 Diltiazem HCl 125 mg/Sodium Chloride 125 ml @ 5 mls/hr CONT PRN IV SEE I/O RECORD 12/20/19 16:00 12/21/19 09:56 Levothyroxine Sodium (Synthroid) 125 mcg DAILY06 PO 8/13/20 06:00 12/21/19 05:50 Alteplase, Recombinant 100 ml @ 50 mls/hr 1X ONCE IV 12/21/19 09:00 12/21/19 10:59 DC 12/21/19 09:22 Justicifation of Admission Dx: Justifications for Admission: Justification of Admission Dx: Yes TOO DARNELL III DO Dec 21, 2019 12:23
--- NOTE | 2019-12-21 13:50 | NUR ---
SS following for discharge planning. SS reviewed pt chart and discussed with pt RN. Pt is from home and is currently on the BIPAP. COVID19 pending. Pt has clot in pulmonary artery and had TPA today. SS will continue to follow for discharge planning.
[2019-12-21] MEDS: ANTI-COAG MONITOR BY PHARMACY. MC PRN (14:45)
[2019-12-21] MEDS ORDERED: CETI10TA16 PO (15:18)
--- NOTE | 2019-12-21 16:38 | PDOC ---
PROGRESS NOTES Date of Service: DATE: 12/21/19 TIME: 16:38 Subjective Subjective s/p tPA earlier today, feeling better, on O2 5L, denied any CP Objective Objective Vital Signs Date Time Temp Pulse Resp B/P (MAP) Pulse Ox O2 Delivery O2 Flow Rate FiO2 12/21/19 16:07 93 Nasal Cannula 5.0 12/21/19 15:00 100 22 116/67 (83) 12/21/19 12:00 98.7 98.7 Intake and Output 12/21/19 07:00 Intake Total 1570.2 ml Output Total 560 ml Balance 1010.2 ml Intake Oral 220 ml IV Total 1350.2 ml Output Urine Total 560 ml Physical Exam Abdomen: Normal bowel sounds, Soft, No tenderness Heart: Other (AFIB RVR) Extremities: No clubbing, No cyanosis General: Alert, Oriented X3, Cooperative, mild distress HEENT: Atraumatic, EOMI, Mucous membr. moist/pink Lungs: Normal air movement MUSCULOSKELETAL: Osteoarthritic changes both hands Neuro: Normal speech, Cranial nerves 3-12 NL Psych/Mental Status: Mental status NL, Mood NL Skin: No rashes, No breakdown, No significant lesion Assessment Assessment 1. NSTEMI: prob RV strain from saddle PE, but since top significantly elevated, we will plan cath once more stable, possibly wednesday. LVEF 50% on echo 2. Acute resp failure secondary to Saddle PE s/p tPA, doing better. Pulm following 3. AFIB RVR: induced by PE, HR better controlled, change CAM to PO. 4. Hypothyroidism: per IM Plan Plan of Care Problems Medical Problems: (1) Atrial fibrillation with RVR Status: Acute (2) Chest pain Status: Acute (3) Saddle embolism of pulmonary artery Status: Acute (4) Suspected COVID-19 virus infection Status: Acute Comment Review of Relevant I have reviewed the following items winifred (where applicable) has been applied. Labs Laboratory Tests Test 12/20/19 18:00 12/20/19 20:30 12/21/19 04:45 12/21/19 06:15 Troponin I Quantitative 10.842 ng/mL (0.000-0.055) 31.936 ng/mL (0.000-0.055) Heparin Anti-Xa Act, Unfractionated 1.00 IU/mL (0.30-0.70) 0.81 IU/mL (0.30-0.70) Urine Collection Type Unknown Urine Color Yellow Urine Clarity Clear Urine pH 5.0 (<5.0-8.0) Urine Specific [place] >=1.030 (1.000-1.030) Urine Protein Negative mg/dL (NEG-TRACE) Urine Glucose (UA) Negative mg/dL (NEG) Urine Ketones (Stick) 40 mg/dL (NEG) Urine Blood Negative (NEG) Urine Nitrite Negative (NEG) Urine Bilirubin Negative (NEG) Urine Urobilinogen Dipstick 0.2 mg/dL (0.2 mg/dL) Urine Leukocyte Esterase Negative (NEG) Urine RBC 6-10 /HPF (0-2) Urine WBC 5-10 /HPF (0-4) Urine Squamous Epithelial Cells None /LPF Urine Bacteria 0 /HPF (0-FEW) Urine Mucus Marked /LPF White Blood Count 10.6 x10^3/uL (4.0-11.0) Red Blood Count 4.53 x10^6/uL (3.50-5.40) Hemoglobin 9.5 g/dL (12.0-15.5) Hematocrit 30.9 % (36.0-47.0) Mean Corpuscular Volume 68 fL (79-100) Mean Corpuscular Hemoglobin 21 pg (25-35) Mean Corpuscular Hemoglobin Concent 31 g/dL (31-37) Red Cell Distribution Width 23.2 % (11.5-14.5) Platelet Count 381 x10^3/uL (140-400) Sodium Level 139 mmol/L (136-145) Potassium Level 3.8 mmol/L (3.5-5.1) Chloride Level 104 mmol/L (98-107) Carbon Dioxide Level 24 mmol/L (21-32) Anion Gap 11 (6-14) Blood Urea Nitrogen 21 mg/dL (7-20) Creatinine 0.8 mg/dL (0.6-1.0) Estimated GFR (Cockcroft-Gault) 70.9 Glucose Level 105 mg/dL (70-99) Calcium Level 8.8 mg/dL (8.5-10.1) Phosphorus Level 3.2 mg/dL (2.6-4.7) Magnesium Level 2.1 mg/dL (1.8-2.4) Test 12/21/19 11:42 Troponin I Quantitative 26.727 ng/mL (0.000-0.055) Microbiology 12/20/19 Blood Culture - Preliminary, Resulted NO GROWTH AFTER 1 DAY Medications Current Medications Alprazolam (Xanax) 0.25 mg PRN Q6HRS PRN PO ANXIETY / AGITATION; Start 12/21/19 at 15:30 Alteplase, Recombinant 100 ml @ 50 mls/hr 1X ONCE IV Last administered on 12/21/19at 09:22; Start 12/21/19 at 09:00; Stop 12/21/19 at 10:59; Status DC Cyclobenzaprine HCl (Flexeril) 10 mg TID PO ; Start 12/20/19 at 21:00 Info (Anti-Coagulation Monitoring By Pharmacy) 1 each PRN DAILY PRN MC SEE COMMENTS Last administered on 12/21/19at 14:45; Start 12/21/19 at 08:30 Levothyroxine Sodium (Synthroid) 125 mcg DAILY06 PO Last administered on 12/21/19at 05:50; Start 12/21/19 at 06:00 Tramadol HCl (Ultram) 50 mg PRN DAILY PRN PO PAIN; Start 12/20/19 at 18:45 Vitals/I & O Vital Sign - Last 24 Hours 12/20/19 12/20/19 12/20/19 12/20/19 16:54 18:00 18:15 18:30 Temp 98.5 98.5 Pulse 132 128 124 124 Resp 20 20 20 B/P (MAP) 152/107 (122) 141/77 (98) 145/82 (103) Pulse Ox 99 95 95 95 O2 Delivery NonRebreather Mask NonRebreather Mask NonRebreather Mask NonRebreather Mask O2 Flow Rate 15.0 15.0 15.0 15.0 12/20/19 12/20/19 12/20/19 12/20/19 18:45 19:00 19:00 20:00 Temp 98.7 98.7 Pulse 126 120 120 112 Resp 20 24 20 32 B/P (MAP) 145/108 (120) 134/89 (104) 134/89 (104) 166/98 (120) Pulse Ox 95 98 95 92 O2 Delivery NonRebreather Mask NonRebreather Mask NonRebreather Mask NonRebreather Mask O2 Flow Rate 15.0 15.0 15.0 15.0 12/20/19 12/20/19 12/20/19 12/20/19 20:00 21:00 22:00 22:30 Pulse 118 100 Resp 30 24 B/P (MAP) 140/81 (100) 114/71 (85) Pulse Ox 90 70 99 O2 Delivery Non-Rebreather NonRebreather Mask NonRebreather Mask BiPAP/CPAP O2 Flow Rate 15.0 15.0 15.0 12/20/19 12/20/19 12/20/19 12/21/19 23:00 23:50 23:59 00:01 Temp 98.0 98.0 Pulse 114 105 Resp 24 26 B/P (MAP) 144/86 (105) 124/89 (101) Pulse Ox 95 95 93 O2 Delivery BiPAP/CPAP BiPAP/CPAP Bi-pap BiPAP/CPAP 12/21/19 12/21/19 12/21/19 12/21/19 01:00 02:00 03:00 03:45 Pulse 80 87 102 Resp 24 B/P (MAP) 140/92 (108) 146/71 (96) 125/77 (93) Pulse Ox 93 93 99 100 O2 Delivery BiPAP/CPAP BiPAP/CPAP BiPAP/CPAP BiPAP/CPAP 12/21/19 12/21/19 12/21/19 12/21/19 04:00 04:00 05:00 06:00 Temp 98.9 98.9 Pulse 104 106 121 Resp 24 24 24 B/P (MAP) 128/67 (87) 114/66 (82) 130/70 (90) Pulse Ox 99 99 99 O2 Delivery Bi-pap BiPAP/CPAP BiPAP/CPAP BiPAP/CPAP 12/21/19 12/21/19 12/21/19 12/21/19 07:00 08:00 08:00 08:45 Temp 97.9 97.9 Pulse 112 110 Resp 30 30 B/P (MAP) 130/63 (85) 128/68 (88) Pulse Ox 100 100 99 O2 Delivery BiPAP/CPAP BiPAP/CPAP Bi-pap BiPAP/CPAP 12/21/19 12/21/19 12/21/19 12/21/19 09:00 09:15 09:30 09:45 Pulse 114 112 114 110 Resp 30 30 33 31 B/P (MAP) 128/75 (92) 140/66 (90) 114/67 (83) 65/48 (54) Pulse Ox 100 100 100 100 O2 Delivery BiPAP/CPAP BiPAP/CPAP BiPAP/CPAP BiPAP/CPAP 12/21/19 12/21/19 12/21/19 12/21/19 10:00 10:15 12:00 12:00 Temp 98.7 98.7 Pulse 110 106 110 Resp 30 33 35 B/P (MAP) 114/67 (83) 131/68 (89) 137/62 (87) Pulse Ox 100 100 100 O2 Delivery BiPAP/CPAP BiPAP/CPAP Bi-pap BiPAP/CPAP 12/21/19 12/21/19 12/21/19 12/21/19 12:25 13:00 14:00 15:00 Pulse 105 104 100 Resp 40 40 22 B/P (MAP) 118/57 (77) 118/63 (81) 116/67 (83) Pulse Ox 100 100 100 96 O2 Delivery BiPAP/CPAP BiPAP/CPAP BiPAP/CPAP Nasal Cannula O2 Flow Rate 5.0 12/21/19 16:07 Pulse Ox 93 O2 Delivery Nasal Cannula O2 Flow Rate 5.0 Intake and Output 12/20/19 12/20/19 12/21/19 15:00 23:00 07:00 Intake Total 1000 ml 50 ml 520.2 ml Output Total 275 ml 285 ml Balance 1000 ml -225 ml 235.2 ml MANUEL WHIPPLE MD Dec 21, 2019 16:38
--- NOTE | 2019-12-21 19:48 | RAD ---
INDICATION: Pulmonary embolus with evaluation for thrombus load within the legs. COMPARISON: None. TECHNIQUE: Grayscale, color and doppler ultrasound images were obtained of the bilateral lower extremity venous vasculature. RIGHT: No thrombus identified in the common femoral vein, femoral vein, popliteal vein or visualized calf veins. LEFT: Thrombus is seen within the left leg extending from the common femoral through the superficial femoral, popliteal and into some of the calf veins. IMPRESSION: * Deep vein thrombosis seen on the left. Electronically signed by: Chapin Conroy MD (12/21/2019 7:44 PM) [id number]
[2019-12-21] MEDS: FAMOTIDINE 20 MG TABLET. PO PRN (23:29)
[2019-12-22] VITALS (17 sets, daily range): BP systolic 100–153; BP diastolic 57–102
[2019-12-22 03:23] LABS: BASO # 0.1 x10^3/uL (0.0-0.2); BASO % 1 % (0-3); EOS # 0.2 x10^3/uL (0.0-0.7); EOS % 2 % (0-3); HEMATOCRIT 26.7 % (36.0-47.0); HEMOGLOBIN 8.4 g/dL (12.0-15.5); LYMPH # 1.7 x10^3/uL (1.0-4.8); LYMPH % 16 % (24-48); MEAN CORPUSCULAR HEMOGLOBIN 21 pg (25-35); MEAN CORPUSCULAR HGB CONC 31 g/dL (31-37); MEAN CORPUSCULAR VOLUME 67 fL (79-100); MONO # 0.6 x10^3/uL (0.0-1.1); MONO % 6 % (0-9); NEUT # 7.6 x10^3/uL (1.8-7.7); NEUT % 75 % (31-73); PLATELET COUNT 327 x10^3/uL (140-400); RED BLOOD COUNT 3.99 x10^6/uL (3.50-5.40); RED CELL DISTRIBUTION WIDTH 22.7 % (11.5-14.5); WHITE BLOOD COUNT 10.2 x10^3/uL (4.0-11.0)
[2019-12-22] MEDS: DILTIAZEM HCL 125 MG in IV NORMAL SALINE 100ML 100 ML IV PRN (03:24)
[2019-12-22 03:31] LABS: CALCIUM 8.1 mg/dL (8.5-10.1); CREATININE 1.1 mg/dL (0.6-1.0); GFR 49.1; POTASSIUM 3.5 mmol/L (3.5-5.1)
[2019-12-22] MEDS: LEVOTHYROXINE 125 MCG TABLET PO SCH (05:48)
--- NOTE | 2019-12-22 08:35 | PDOC ---
PULMONARY PROGRESS NOTES DATE: 12/22/19 TIME: 08:29 Subjective Pt. is S/P systemic TPA on 12/21/2019, now on N/C oxygen no SOB, or cough or CP Vitals Vital Signs Date Time Temp Pulse Resp B/P (MAP) Pulse Ox O2 Delivery O2 Flow Rate FiO2 12/22/19 06:00 98 26 149/68 (95) 95 Nasal Cannula 5.0 12/22/19 04:00 98.4 98.4 ROS: No Nausea, No Chest Pain, No Abdominal Pain, No Increase Cough General: Alert Lungs: Clear Cardiovascular: S1, S2 Abdomen: Soft, Non-tender Neuro Exam: Alert Extremities: No Edema Skin: Warm Labs Laboratory Tests Test 12/20/19 12:05 12/20/19 12:14 12/20/19 18:00 12/20/19 20:30 White Blood Count 10.9 x10^3/uL (4.0-11.0) Red Blood Count 4.71 x10^6/uL (3.50-5.40) Hemoglobin 9.7 g/dL (12.0-15.5) Hematocrit 31.8 % (36.0-47.0) Mean Corpuscular Volume 68 fL (79-100) Mean Corpuscular Hemoglobin 21 pg (25-35) Mean Corpuscular Hemoglobin Concent 31 g/dL (31-37) Red Cell Distribution Width 23.3 % (11.5-14.5) Platelet Count 400 x10^3/uL (140-400) Neutrophils (%) (Auto) 84 % (31-73) Lymphocytes (%) (Auto) 10 % (24-48) Monocytes (%) (Auto) 5 % (0-9) Eosinophils (%) (Auto) 0 % (0-3) Basophils (%) (Auto) 1 % (0-3) Neutrophils # (Auto) 9.2 x10^3/uL (1.8-7.7) Lymphocytes # (Auto) 1.1 x10^3/uL (1.0-4.8) Monocytes # (Auto) 0.5 x10^3/uL (0.0-1.1) Eosinophils # (Auto) 0.0 x10^3/uL (0.0-0.7) Basophils # (Auto) 0.1 x10^3/uL (0.0-0.2) Toxic Granulation Slight Platelet Estimate Adequate (ADEQUATE) Polychromasia Slight Hypochromasia Mod Anisocytosis Mod Microcytosis Marked Ovalocytes Few Schistocytes Prothrombin Time 13.4 SEC (11.7-14.0) Prothromb Time International Ratio 1.1 (0.8-1.1) Activated Partial Thromboplast Time 34 SEC (24-38) D-Dimer (Yadira) 6.57 ug/mlFEU (0.00-0.50) Sodium Level 141 mmol/L (136-145) Potassium Level 4.0 mmol/L (3.5-5.1) Chloride Level 104 mmol/L (98-107) Carbon Dioxide Level 26 mmol/L (21-32) Anion Gap 11 (6-14) Blood Urea Nitrogen 24 mg/dL (7-20) Creatinine 1.0 mg/dL (0.6-1.0) Estimated GFR (Cockcroft-Gault) 54.8 BUN/Creatinine Ratio 24 (6-20) Glucose Level 150 mg/dL (70-99) Lactic Acid Level 2.0 mmol/L (0.4-2.0) Calcium Level 9.2 mg/dL (8.5-10.1) Magnesium Level 2.0 mg/dL (1.8-2.4) Total Bilirubin 0.7 mg/dL (0.2-1.0) Aspartate Amino Transf (AST/SGOT) 26 U/L (15-37) Alanine Aminotransferase (ALT/SGPT) 25 U/L (14-59) Alkaline Phosphatase 123 U/L (46-116) Troponin I Quantitative 0.743 ng/mL (0.000-0.055) 10.842 ng/mL (0.000-0.055) Total Protein 7.4 g/dL (6.4-8.2) Albumin 3.1 g/dL (3.4-5.0) Albumin/Globulin Ratio 0.7 (1.0-1.7) Triglycerides Level 78 mg/dL (0-150) Cholesterol Level 130 mg/dL (0-200) LDL Cholesterol, Calculated 54 mg/dL (0-100) VLDL Cholesterol, Calculated 16 mg/dL (0-40) Non-HDL Cholesterol Calculated 70 mg/dL (0-129) HDL Cholesterol 60 mg/dL (40-60) Cholesterol/HDL Ratio 2.2 Lipase 89 U/L (73-393) Thyroid Stimulating Hormone (TSH) 5.058 uIU/mL (0.358-3.74) Coronavirus (PCR) Not detected (Not Detected) Heparin Anti-Xa Act, Unfractionated 1.00 IU/mL (0.30-0.70) Test 12/21/19 04:45 12/21/19 06:15 12/21/19 11:42 12/21/19 21:00 Urine Collection Type Unknown Urine Color Yellow Urine Clarity Clear Urine pH 5.0 (<5.0-8.0) Urine Specific [place] >=1.030 (1.000-1.030) Urine Protein Negative mg/dL (NEG-TRACE) Urine Glucose (UA) Negative mg/dL (NEG) Urine Ketones (Stick) 40 mg/dL (NEG) Urine Blood Negative (NEG) Urine Nitrite Negative (NEG) Urine Bilirubin Negative (NEG) Urine Urobilinogen Dipstick 0.2 mg/dL (0.2 mg/dL) Urine Leukocyte Esterase Negative (NEG) Urine RBC 6-10 /HPF (0-2) Urine WBC 5-10 /HPF (0-4) Urine Squamous Epithelial Cells None /LPF Urine Bacteria 0 /HPF (0-FEW) Urine Mucus Marked /LPF White Blood Count 10.6 x10^3/uL (4.0-11.0) Red Blood Count 4.53 x10^6/uL (3.50-5.40) Hemoglobin 9.5 g/dL (12.0-15.5) Hematocrit 30.9 % (36.0-47.0) Mean Corpuscular Volume 68 fL (79-100) Mean Corpuscular Hemoglobin 21 pg (25-35) Mean Corpuscular Hemoglobin Concent 31 g/dL (31-37) Red Cell Distribution Width 23.2 % (11.5-14.5) Platelet Count 381 x10^3/uL (140-400) Heparin Anti-Xa Act, Unfractionated 0.81 IU/mL (0.30-0.70) 0.52 IU/mL (0.30-0.70) Sodium Level 139 mmol/L (136-145) Potassium Level 3.8 mmol/L (3.5-5.1) Chloride Level 104 mmol/L (98-107) Carbon Dioxide Level 24 mmol/L (21-32) Anion Gap 11 (6-14) Blood Urea Nitrogen 21 mg/dL (7-20) Creatinine 0.8 mg/dL (0.6-1.0) Estimated GFR (Cockcroft-Gault) 70.9 Glucose Level 105 mg/dL (70-99) Calcium Level 8.8 mg/dL (8.5-10.1) Phosphorus Level 3.2 mg/dL (2.6-4.7) Magnesium Level 2.1 mg/dL (1.8-2.4) Troponin I Quantitative 31.936 ng/mL (0.000-0.055) 26.727 ng/mL (0.000-0.055) Test 12/22/19 03:00 White Blood Count 10.2 x10^3/uL (4.0-11.0) Red Blood Count 3.99 x10^6/uL (3.50-5.40) Hemoglobin 8.4 g/dL (12.0-15.5) Hematocrit 26.7 % (36.0-47.0) Mean Corpuscular Volume 67 fL (79-100) Mean Corpuscular Hemoglobin 21 pg (25-35) Mean Corpuscular Hemoglobin Concent 31 g/dL (31-37) Red Cell Distribution Width 22.7 % (11.5-14.5) Platelet Count 327 x10^3/uL (140-400) Neutrophils (%) (Auto) 75 % (31-73) Lymphocytes (%) (Auto) 16 % (24-48) Monocytes (%) (Auto) 6 % (0-9) Eosinophils (%) (Auto) 2 % (0-3) Basophils (%) (Auto) 1 % (0-3) Neutrophils # (Auto) 7.6 x10^3/uL (1.8-7.7) Lymphocytes # (Auto) 1.7 x10^3/uL (1.0-4.8) Monocytes # (Auto) 0.6 x10^3/uL (0.0-1.1) Eosinophils # (Auto) 0.2 x10^3/uL (0.0-0.7) Basophils # (Auto) 0.1 x10^3/uL (0.0-0.2) Heparin Anti-Xa Act, Unfractionated 0.70 IU/mL (0.30-0.70) Sodium Level 136 mmol/L (136-145) Potassium Level 3.5 mmol/L (3.5-5.1) Chloride Level 103 mmol/L (98-107) Carbon Dioxide Level 27 mmol/L (21-32) Anion Gap 6 (6-14) Blood Urea Nitrogen 23 mg/dL (7-20) Creatinine 1.1 mg/dL (0.6-1.0) Estimated GFR (Cockcroft-Gault) 49.1 Glucose Level 134 mg/dL (70-99) Calcium Level 8.1 mg/dL (8.5-10.1) Laboratory Tests Test 12/21/19 11:42 12/21/19 21:00 12/22/19 03:00 Troponin I Quantitative 26.727 ng/mL (0.000-0.055) Heparin Anti-Xa Act, Unfractionated 0.52 IU/mL (0.30-0.70) 0.70 IU/mL (0.30-0.70) White Blood Count 10.2 x10^3/uL (4.0-11.0) Red Blood Count 3.99 x10^6/uL (3.50-5.40) Hemoglobin 8.4 g/dL (12.0-15.5) Hematocrit 26.7 % (36.0-47.0) Mean Corpuscular Volume 67 fL (79-100) Mean Corpuscular Hemoglobin 21 pg (25-35) Mean Corpuscular Hemoglobin Concent 31 g/dL (31-37) Red Cell Distribution Width 22.7 % (11.5-14.5) Platelet Count 327 x10^3/uL (140-400) Neutrophils (%) (Auto) 75 % (31-73) Lymphocytes (%) (Auto) 16 % (24-48) Monocytes (%) (Auto) 6 % (0-9) Eosinophils (%) (Auto) 2 % (0-3) Basophils (%) (Auto) 1 % (0-3) Neutrophils # (Auto) 7.6 x10^3/uL (1.8-7.7) Lymphocytes # (Auto) 1.7 x10^3/uL (1.0-4.8) Monocytes # (Auto) 0.6 x10^3/uL (0.0-1.1) Eosinophils # (Auto) 0.2 x10^3/uL (0.0-0.7) Basophils # (Auto) 0.1 x10^3/uL (0.0-0.2) Sodium Level 136 mmol/L (136-145) Potassium Level 3.5 mmol/L (3.5-5.1) Chloride Level 103 mmol/L (98-107) Carbon Dioxide Level 27 mmol/L (21-32) Anion Gap 6 (6-14) Blood Urea Nitrogen 23 mg/dL (7-20) Creatinine 1.1 mg/dL (0.6-1.0) Estimated GFR (Cockcroft-Gault) 49.1 Glucose Level 134 mg/dL (70-99) Calcium Level 8.1 mg/dL (8.5-10.1) Medications Active Scripts Medications Dose Route/Sig Max Daily Dose Days Date Category Cetirizine Hcl 10 Mg Tablet 1 Tab PO DAILY 12/21/19 Reported Ditropan Xl (Oxybutynin Chloride) 10 Mg Tab.er.24 10 Mg PO DAILY 01/22/16 Reported Zoloft (Sertraline Hcl) 100 Mg Tablet 100 Mg PO DAILY 01/22/16 Reported Ventolin Hfa Inhaler (Albuterol Sulfate) 18 Gm Hfa.aer.ad 2 Puff INH QID 01/22/16 Reported Advair 100-50 Diskus (Fluticasone/Salmeterol) 1 Each Disk.w.dev 1 Inh IH BID 01/22/16 Reported Xanax (Alprazolam) 0.25 Mg Tablet 0.25 Mg PO PRN Q6HRS PRN 01/22/16 Reported Cyclobenzaprine Hcl 10 Mg Tablet 10 Mg PO TID 01/22/16 Reported Levothyroxine Sodium 125 Mcg Tablet 125 Mcg PO DAILYAC 01/22/16 Reported Ranitidine Hcl 300 Mg Capsule 300 Mg PO DAILY 01/22/16 Reported Tramadol Hcl 50 Mg Tablet 50 Mg PO DAILY PRN 01/22/16 Reported Bystolic (Nebivolol) 5 Mg Tablet 5 Mg PO DAILY 01/22/16 Reported Comments BLE U/S IMPRESSION: * Deep vein thrombosis seen on the left. ECHIO 12/21/2019 <Conclusion> The left ventricular systolic function is normal and the ejection fraction is within normal range. The Ejection Fraction is 50%. There is normal LV segmental wall motion. The right ventricle is moderately to severly dilated measuring 5.2 cm. Doppler and Color Flow revealed mild to moderate tricuspid regurgitation with an estimated PAP of 71 mmHg. Impression . IMPRESSION: 1. Acute hypoxic respiratory failure secondary to acute massive pulmonary embolism with hemodynamic stability . Risk factor is likely related to recent immobility for the last 2 weeks due to her lumbar radiculopathy and also from the fall when she twisted her knee. Underlying obesity would be another risk factor. She has no known cancers. Not on any form of estrogens.-- s/p systemic TPA with sig improvement, off BIPAP 2. Atrial fibrillation with rapid ventricular response, likely caused by right ventricular strain., on cardizem 3. No significant tobacco history. 4. No history of any hypercoagulable state. 5. LLE DVT 6. Markedly elevated troponin (peak 31). Out of proportion to usually seen in RV infarction. Will need cath Wednesday Plan . RECOMMENDATIONS: Continue supplemental oxygen to keep sats above 92 %, now on N/C off BIPAP, S/P systemic TPA with sig improvement of hypoxia .On Heparin drip. Repeat CTA chest in am to see resolution. Follow cardiology recommendations-- continued management of AFIB- now rate controlled wean off cardizem ECHO revied EF 50% BLE DPLX positive for LLE DVT NEBS A/C -- heparin gtt . Can start Eliquis hypercoagulable panel as an outpatient. Cath Wednesday. 3-6 months of AC DVT/GI PPX D/W RN and RT MARGE GLOVER MD Dec 22, 2019 08:35
[2019-12-22] MEDS: FAMOTIDINE 20 MG TABLET. PO PRN ×2 (09:36→21:37)
[2019-12-22] MEDS: CYCLOBENZAPRINE 10 MG TABLET. PO SCH ×3 (09:36→20:23)
--- NOTE | 2019-12-22 11:12 | PDOC ---
[facility] PROGRESS NOTE Date of Service DOS: DATE: 12/22/19 TIME: 11:07 Chief Complaint Chief Complaint Acute hypoxic respiratory failure with worsening hypoxia secondary to saddle pulmonary embolism Markedly increased troponin level secondary to severe right ventricular infarction and ischemia Atrial fibrillation with rapid ventricular response induced by PE Hypertension Hyperlipidemia Lumbar radiculopathy with significant decreased mobility with recent nontraumatic fall Hypothyroidism Microcytic anemia History of Present Illness History of Present Illness 12/22/2019 Patient seen and examined in ICU Patient is off BiPAP and down to 5L O2 per NC She received tPA yesterday, now on heparin drip COVID negative Discussed with RN Chart reviewed 12/21/19 Patient seen and examined in the ICU Hypoxia is worsening and she is requiring 100% oxygen on BiPAP Troponin increased to 31, she has begun tPA per Dr. Buckley Echo this AM showed normal LV wall motion, EF 50%, RV dilation secondary to tricuspid regurgitation Awaiting COVID results Discussed with RN Chart reviewed Vitals/I&O Vitals/I&O: Vital Signs Date Time Temp Pulse Resp B/P (MAP) Pulse Ox O2 Delivery O2 Flow Rate FiO2 12/22/19 10:00 98 28 115/72 (86) 99 Nasal Cannula 5.0 12/22/19 08:00 98.4 98.4 I & O 12/21/19 12/21/19 12/22/19 15:00 23:00 07:00 Intake Total 140 ml 472 ml 438 ml Output Total 300 ml 285 ml 175 ml Balance -160 ml 187 ml 263 ml Physical Exam General: Alert, Oriented X3, Cooperative, No acute distress Heart: Regular rate, Other (AFIB RVR) Lungs: Clear Abdomen: Normal bowel sounds, Soft, No tenderness Extremities: No clubbing, No cyanosis Skin: No rashes, No breakdown, No significant lesion Labs Labs: Laboratory Tests Test 12/21/19 11:42 12/21/19 21:00 12/22/19 03:00 Troponin I Quantitative 26.727 ng/mL (0.000-0.055) 11.154 ng/mL (0.000-0.055) Heparin Anti-Xa Act, Unfractionated 0.52 IU/mL (0.30-0.70) 0.70 IU/mL (0.30-0.70) White Blood Count 10.2 x10^3/uL (4.0-11.0) Red Blood Count 3.99 x10^6/uL (3.50-5.40) Hemoglobin 8.4 g/dL (12.0-15.5) Hematocrit 26.7 % (36.0-47.0) Mean Corpuscular Volume 67 fL (79-100) Mean Corpuscular Hemoglobin 21 pg (25-35) Mean Corpuscular Hemoglobin Concent 31 g/dL (31-37) Red Cell Distribution Width 22.7 % (11.5-14.5) Platelet Count 327 x10^3/uL (140-400) Neutrophils (%) (Auto) 75 % (31-73) Lymphocytes (%) (Auto) 16 % (24-48) Monocytes (%) (Auto) 6 % (0-9) Eosinophils (%) (Auto) 2 % (0-3) Basophils (%) (Auto) 1 % (0-3) Neutrophils # (Auto) 7.6 x10^3/uL (1.8-7.7) Lymphocytes # (Auto) 1.7 x10^3/uL (1.0-4.8) Monocytes # (Auto) 0.6 x10^3/uL (0.0-1.1) Eosinophils # (Auto) 0.2 x10^3/uL (0.0-0.7) Basophils # (Auto) 0.1 x10^3/uL (0.0-0.2) Sodium Level 136 mmol/L (136-145) Potassium Level 3.5 mmol/L (3.5-5.1) Chloride Level 103 mmol/L (98-107) Carbon Dioxide Level 27 mmol/L (21-32) Anion Gap 6 (6-14) Blood Urea Nitrogen 23 mg/dL (7-20) Creatinine 1.1 mg/dL (0.6-1.0) Estimated GFR (Cockcroft-Gault) 49.1 Glucose Level 134 mg/dL (70-99) Calcium Level 8.1 mg/dL (8.5-10.1) Assessment and Plan Assessmemt and Plan Problems Medical Problems: (1) Atrial fibrillation with RVR Status: Acute (2) Chest pain Status: Acute (3) Saddle embolism of pulmonary artery Status: Acute (4) Suspected COVID-19 virus infection Status: Acute ASSESSMENT Acute hypoxic respiratory failure with worsening hypoxia secondary to saddle pulmonary embolism Markedly increased troponin level secondary to severe right ventricular infarction and ischemia Atrial fibrillation with rapid ventricular response induced by PE Hypertension Hyperlipidemia Lumbar radiculopathy with significant decreased mobility with recent nontraumatic fall Hypothyroidism Microcytic anemia PLAN Continue ICU monitoring Heparin drip Oxygen supplementation Monitor hemoglobin Monitor ABGs Home meds Full code Appreciate cardiology and pulmonology input Comment Review of Relevant I have reviewed the following items winifred (where applicable) has been applied. Medications: Current Medications Medications (Trade) Dose Ordered Sig/Danuta Route PRN Reason Start Time Stop Time Status Last Admin Dose Admin Famotidine (Pepcid) 20 mg PRN BID PRN PO HEARTBURN / GAS 12/21/19 23:15 12/22/19 09:36 Justicifation of Admission Dx: Justifications for Admission: Justification of Admission Dx: Yes TOO DARNELL III DO Dec 22, 2019 11:12
[2019-12-22] MEDS: LEVALBUTEROL 1.25 MG/0.5 ML NEBU. NEB PRN ×2 (12:26→20:05)
[2019-12-22] MEDS: BUDESONIDE 0.5 MG/2 ML NEBU. NEB SCH ×2 (12:26→20:05)
[2019-12-22] MEDS: ANTI-COAG MONITOR BY PHARMACY. MC PRN (13:21)
--- NOTE | 2019-12-22 14:47 | NUR ---
SS following up with discharge planning. SS reviewed pt chart and discussed with pt RN. Pt is currently off the BIPAP. Pt on nasal canula oxygen. COVID19 negative. Pt on PO Cardizem and Heparin drip. SS will continue to follow for discharge planning.
--- NOTE | 2019-12-22 23:43 | PDOC ---
CARDIOLOGY PROGRESS NOTE SUBJECTIVE: No new events overnight. Denies any chest pain. Dyspnea continues. OBJECTIVE: Vital Signs/I&O: Vital Signs Date Time Temp Pulse Resp B/P (MAP) Pulse Ox O2 Delivery O2 Flow Rate FiO2 12/22/19 23:00 98.1 124 26 140/102 (115) 99 Nasal Cannula 5.0 98.1 I & O 12/21/19 12/21/19 12/22/19 15:00 23:00 07:00 Intake Total 140 ml 472 ml 438 ml Output Total 300 ml 285 ml 175 ml Balance -160 ml 187 ml 263 ml Objective: GEN.: No apparent distress. Alert and oriented. HEENT: Head is normocephalic, atraumatic NECK: Supple. LUNGS: Clear to auscultation. HEART: RRR, S1, S2 present. Peripheral pulses intact ABDOMEN: Soft, nontender. Positive bowel sounds. EXTREMITIES: Without any cyanosis. NEUROLOGIC: Normal speech, normal tone PSYCHIATRIC: Normal affect, normal mood. SKIN: No ulcerations CURRENT MEDICATIONS: Current Medications Medications (Trade) Dose Ordered Sig/Danuta Route PRN Reason Start Time Stop Time Status Last Admin Dose Admin Budesonide (Pulmicort) 0.5 mg RTBID NEB 12/22/19 09:00 12/22/19 20:05 Levalbuterol HCl (Xopenex) 1.25 mg PRN Q4HRS PRN NEB SHORTNESS OF BREATH 12/22/19 09:00 12/22/19 20:05 Diltiazem HCl (Cardizem 24hr Cd) 240 mg DAILY PO 12/22/19 09:15 12/22/19 11:27 DIAGNOSTIC TESTING: Labs reivewed Labs: Laboratory Tests 12/22/19 03:00 Laboratory Tests Test 12/22/19 03:00 White Blood Count 10.2 x10^3/uL (4.0-11.0) Red Blood Count 3.99 x10^6/uL (3.50-5.40) Hemoglobin 8.4 g/dL (12.0-15.5) L Hematocrit 26.7 % (36.0-47.0) L Mean Corpuscular Volume 67 fL (79-100) L Mean Corpuscular Hemoglobin 21 pg (25-35) L Mean Corpuscular Hemoglobin Concent 31 g/dL (31-37) Red Cell Distribution Width 22.7 % (11.5-14.5) H Platelet Count 327 x10^3/uL (140-400) Neutrophils (%) (Auto) 75 % (31-73) H Lymphocytes (%) (Auto) 16 % (24-48) L Monocytes (%) (Auto) 6 % (0-9) Eosinophils (%) (Auto) 2 % (0-3) Basophils (%) (Auto) 1 % (0-3) Neutrophils # (Auto) 7.6 x10^3/uL (1.8-7.7) Lymphocytes # (Auto) 1.7 x10^3/uL (1.0-4.8) Monocytes # (Auto) 0.6 x10^3/uL (0.0-1.1) Eosinophils # (Auto) 0.2 x10^3/uL (0.0-0.7) Basophils # (Auto) 0.1 x10^3/uL (0.0-0.2) Heparin Anti-Xa Act, Unfractionated 0.70 IU/mL (0.30-0.70) Sodium Level 136 mmol/L (136-145) Potassium Level 3.5 mmol/L (3.5-5.1) Chloride Level 103 mmol/L (98-107) Carbon Dioxide Level 27 mmol/L (21-32) Anion Gap 6 (6-14) Blood Urea Nitrogen 23 mg/dL (7-20) H Creatinine 1.1 mg/dL (0.6-1.0) H Estimated GFR (Cockcroft-Gault) 49.1 Glucose Level 134 mg/dL (70-99) H Calcium Level 8.1 mg/dL (8.5-10.1) L ASSESSMENT: 1. Massive P.E -improving 2. NSTEMI PLAN: 1. Continue heparin gtt. Will consider coronary angiography wednesday. Thanks. Justicifation of Admission Dx: Justifications for Admission: Justification of Admission Dx: Yes KEVYN ROONEY MD Dec 22, 2019 23:43
[2019-12-23 03:23] VITALS: BP 129/70
[2019-12-23] MEDS: FAMOTIDINE 20 MG TABLET. PO PRN (04:19)
[2019-12-23] MEDS: LEVOTHYROXINE 125 MCG TABLET PO SCH (04:19)
[2019-12-23] MEDS: HEPARIN 25,000UTS/250ML PREMIX 250 ML IV PRN ×2 (04:26→20:37)
--- NOTE | 2019-12-23 05:29 | PDOC ---
PULMONARY PROGRESS NOTES DATE: 12/23/19 TIME: 05:27 Subjective Pt. is S/P systemic TPA on 12/21/2019, now on N/C oxygen, 5 lpm no SOB, or cough or CP, has stomach pain Vitals Vital Signs Date Time Temp Pulse Resp B/P (MAP) Pulse Ox O2 Delivery O2 Flow Rate FiO2 12/23/19 03:23 97.8 81 23 129/70 (89) 99 Nasal Cannula 5.0 97.8 ROS: No Nausea, No Chest Pain, No Abdominal Pain, No Increase Cough General: Alert Lungs: Clear Cardiovascular: S1, S2 Abdomen: Soft, Non-tender Neuro Exam: Alert Extremities: No Edema Skin: Warm Labs Laboratory Tests Test 12/21/19 06:15 12/21/19 11:42 12/21/19 21:00 12/22/19 03:00 White Blood Count 10.6 x10^3/uL (4.0-11.0) 10.2 x10^3/uL (4.0-11.0) Red Blood Count 4.53 x10^6/uL (3.50-5.40) 3.99 x10^6/uL (3.50-5.40) Hemoglobin 9.5 g/dL (12.0-15.5) 8.4 g/dL (12.0-15.5) Hematocrit 30.9 % (36.0-47.0) 26.7 % (36.0-47.0) Mean Corpuscular Volume 68 fL (79-100) 67 fL (79-100) Mean Corpuscular Hemoglobin 21 pg (25-35) 21 pg (25-35) Mean Corpuscular Hemoglobin Concent 31 g/dL (31-37) 31 g/dL (31-37) Red Cell Distribution Width 23.2 % (11.5-14.5) 22.7 % (11.5-14.5) Platelet Count 381 x10^3/uL (140-400) 327 x10^3/uL (140-400) Heparin Anti-Xa Act, Unfractionated 0.81 IU/mL (0.30-0.70) 0.52 IU/mL (0.30-0.70) 0.70 IU/mL (0.30-0.70) Sodium Level 139 mmol/L (136-145) 136 mmol/L (136-145) Potassium Level 3.8 mmol/L (3.5-5.1) 3.5 mmol/L (3.5-5.1) Chloride Level 104 mmol/L (98-107) 103 mmol/L (98-107) Carbon Dioxide Level 24 mmol/L (21-32) 27 mmol/L (21-32) Anion Gap 11 (6-14) 6 (6-14) Blood Urea Nitrogen 21 mg/dL (7-20) 23 mg/dL (7-20) Creatinine 0.8 mg/dL (0.6-1.0) 1.1 mg/dL (0.6-1.0) Estimated GFR (Cockcroft-Gault) 70.9 49.1 Glucose Level 105 mg/dL (70-99) 134 mg/dL (70-99) Calcium Level 8.8 mg/dL (8.5-10.1) 8.1 mg/dL (8.5-10.1) Phosphorus Level 3.2 mg/dL (2.6-4.7) Magnesium Level 2.1 mg/dL (1.8-2.4) Troponin I Quantitative 31.936 ng/mL (0.000-0.055) 26.727 ng/mL (0.000-0.055) 11.154 ng/mL (0.000-0.055) Neutrophils (%) (Auto) 75 % (31-73) Lymphocytes (%) (Auto) 16 % (24-48) Monocytes (%) (Auto) 6 % (0-9) Eosinophils (%) (Auto) 2 % (0-3) Basophils (%) (Auto) 1 % (0-3) Neutrophils # (Auto) 7.6 x10^3/uL (1.8-7.7) Lymphocytes # (Auto) 1.7 x10^3/uL (1.0-4.8) Monocytes # (Auto) 0.6 x10^3/uL (0.0-1.1) Eosinophils # (Auto) 0.2 x10^3/uL (0.0-0.7) Basophils # (Auto) 0.1 x10^3/uL (0.0-0.2) Medications Active Scripts Medications Dose Route/Sig Max Daily Dose Days Date Category Cetirizine Hcl 10 Mg Tablet 1 Tab PO DAILY 12/21/19 Reported Ditropan Xl (Oxybutynin Chloride) 10 Mg Tab.er.24 10 Mg PO DAILY 01/22/16 Reported Zoloft (Sertraline Hcl) 100 Mg Tablet 100 Mg PO DAILY 01/22/16 Reported Ventolin Hfa Inhaler (Albuterol Sulfate) 18 Gm Hfa.aer.ad 2 Puff INH QID 01/22/16 Reported Advair 100-50 Diskus (Fluticasone/Salmeterol) 1 Each Disk.w.dev 1 Inh IH BID 01/22/16 Reported Xanax (Alprazolam) 0.25 Mg Tablet 0.25 Mg PO PRN Q6HRS PRN 01/22/16 Reported Cyclobenzaprine Hcl 10 Mg Tablet 10 Mg PO TID 01/22/16 Reported Levothyroxine Sodium 125 Mcg Tablet 125 Mcg PO DAILYAC 01/22/16 Reported Ranitidine Hcl 300 Mg Capsule 300 Mg PO DAILY 01/22/16 Reported Tramadol Hcl 50 Mg Tablet 50 Mg PO DAILY PRN 01/22/16 Reported Bystolic (Nebivolol) 5 Mg Tablet 5 Mg PO DAILY 01/22/16 Reported Comments BLE U/S IMPRESSION: * Deep vein thrombosis seen on the left. ECHIO 12/21/2019 <Conclusion> The left ventricular systolic function is normal and the ejection fraction is within normal range. The Ejection Fraction is 50%. There is normal LV segmental wall motion. The right ventricle is moderately to severly dilated measuring 5.2 cm. Doppler and Color Flow revealed mild to moderate tricuspid regurgitation with an estimated PAP of 71 mmHg. Impression . IMPRESSION: 1. Acute hypoxic respiratory failure secondary to acute massive pulmonary embolism with hemodynamic stability . Risk factor is likely related to recent immobility for the last 2 weeks due to her lumbar radiculopathy and also from the fall when she twisted her knee. Underlying obesity would be another risk factor. She has no known cancers. Not on any form of estrogens.-- s/p systemic TPA with sig improvement, off BIPAP 2. Atrial fibrillation with rapid ventricular response, likely caused by right ventricular strain., on cardizem 3. No significant tobacco history. 4. No history of any hypercoagulable state. 5. LLE DVT 6. Markedly elevated troponin (peak 31). Out of proportion to usually seen in RV infarction. Will need cath Wednesday Plan . RECOMMENDATIONS: Continue supplemental oxygen to keep sats above 92 %, now on N/C off BIPAP, add pepcid bid for stress ulcer prophylaxis S/P systemic TPA with sig improvement of hypoxia .On Heparin drip. Repeat CTA chest, will review. Follow cardiology recommendations-- continued management of AFIB- now rate controlled ECHO revied EF 50% BLE DPLX positive for LLE DVT NEBS A/C -- heparin gtt . Can start Eliquis hypercoagulable panel as an outpatient. Cath Wednesday. 3-6 months of AC D/W DIONE SANDERS MD Dec 23, 2019 05:29
[2019-12-23 05:41] LABS: BASO # 0.1 x10^3/uL (0.0-0.2); BASO % 1 % (0-3); EOS # 0.3 x10^3/uL (0.0-0.7); EOS % 4 % (0-3); HEMATOCRIT 24.9 % (36.0-47.0); HEMOGLOBIN 7.9 g/dL (12.0-15.5); LYMPH # 1.4 x10^3/uL (1.0-4.8); LYMPH % 16 % (24-48); MEAN CORPUSCULAR HEMOGLOBIN 21 pg (25-35); MEAN CORPUSCULAR HGB CONC 32 g/dL (31-37); MEAN CORPUSCULAR VOLUME 67 fL (79-100); MONO # 0.6 x10^3/uL (0.0-1.1); MONO % 7 % (0-9); NEUT # 6.2 x10^3/uL (1.8-7.7); NEUT % 72 % (31-73); PLATELET COUNT 330 x10^3/uL (140-400); RED CELL DISTRIBUTION WIDTH 22.5 % (11.5-14.5); WHITE BLOOD COUNT 8.6 x10^3/uL (4.0-11.0)
[2019-12-23 05:53] LABS: CALCIUM 8.3 mg/dL (8.5-10.1); CREATININE 0.8 mg/dL (0.6-1.0); GFR 70.9; POTASSIUM 3.6 mmol/L (3.5-5.1)
[2019-12-23 07:00] VITALS: BP 129/90
[2019-12-23] MEDS: BUDESONIDE 0.5 MG/2 ML NEBU. NEB SCH ×2 (07:20→18:52)
[2019-12-23] MEDS ORDERED: IOHEXOL 350 MG/ML 100 ML VIAL. IV ONE (08:00)
[2019-12-23] MEDS: CYCLOBENZAPRINE 10 MG TABLET. PO SCH ×3 (09:05→20:33)
[2019-12-23] MEDS: FAMOTIDINE 20 MG TABLET. PO SCH ×2 (09:05→20:33)
[2019-12-23] MEDS: ANTI-COAG MONITOR BY PHARMACY. MC PRN (09:58)
[2019-12-23 11:12] VITALS: BP 127/67
--- NOTE | 2019-12-23 11:20 | RAD ---
CT angiogram of the chest with contrast: Reason for examination: PE. Follow-up after TPA. Comparison is made to previous study dated 12/20/2019. Helical images were obtained through the chest with intravenous administration 100 cc Omnipaque 350 using PE protocol. 3-D MIPS reconstruction was performed in sagittal and coronal planes. Exposure: One or more of the following individualized dose reduction techniques were utilized for this examination: 1. Automated exposure control 2. Adjustment of the mA and/or kV according to patient size 3. Use of iterative reconstruction technique. The trachea and mainstem bronchi show no intraluminal lesions. No abnormality seen at the esophagus. There is however moderate size hiatal hernia again seen. The thoracic aorta shows no aneurysmal dilatation or dissection. The heart size is normal with no pericardial effusion. There continue to be bilateral pulmonary emboli. The saddle embolus has resolved but smaller emboli are still present in multiple pulmonary arteries bilaterally. Lung gregory however show presence of patchy groundglass infiltrates bilaterally especially in the left upper lobe. These probably reflect areas of atelectasis but recommend clinical correlation and follow-up. No pleural effusions or pneumothorax are seen. No abnormalities of seen at the visualized portions of the liver, spleen, adrenal glands or pancreas. There is a chronic nonhealed rib fracture laterally in right eighth rib which is unchanged. Degenerative changes are again seen in the spine. IMPRESSION: Continued presence of multiple smaller bilateral pulmonary emboli but resolution of the saddle embolus seen previously. New patchy areas of groundglass infiltrates bilaterally especially peripherally in the left upper lobe. These may reflect areas of atelectasis but recommend clinical correlation and follow-up. Electronically signed by: Vanna Hickman MD (12/23/2019 11:17 AM) [facility]
--- NOTE | 2019-12-23 12:15 | PDOC ---
[facility] PROGRESS NOTE Date of Service DOS: DATE: 12/23/19 TIME: 12:06 Chief Complaint Chief Complaint Acute hypoxic respiratory failure with worsening hypoxia secondary to saddle pulmonary embolism Markedly increased troponin level secondary to severe right ventricular infarction and ischemia Atrial fibrillation with rapid ventricular response induced by PE Hypertension Hyperlipidemia Lumbar radiculopathy with significant decreased mobility with recent nontraumatic fall Hypothyroidism Microcytic anemia History of Present Illness History of Present Illness 12/23/2019 Patient seen and examined in CT lab CT angiogram performed on patient this morning Resting comfortably on O2 per NC Discussed with RN Charts reviewed 12/22/2019 Patient seen and examined in ICU Patient is off BiPAP and down to 5L O2 per NC She received tPA yesterday, now on heparin drip COVID negative Discussed with RN Chart reviewed 12/21/19 Patient seen and examined in the ICU Hypoxia is worsening and she is requiring 100% oxygen on BiPAP Troponin increased to 31, she has begun tPA per Dr. Buckley Echo this AM showed normal LV wall motion, EF 50%, RV dilation secondary to tricuspid regurgitation Awaiting COVID results Discussed with RN Chart reviewed Vitals/I&O Vitals/I&O: Vital Signs Date Time Temp Pulse Resp B/P (MAP) Pulse Ox O2 Delivery O2 Flow Rate FiO2 12/23/19 11:12 98.1 111 22 127/67 (87) 100 Nasal Cannula 3.5 98.1 I & O 12/22/19 12/22/19 12/23/19 15:00 23:00 07:00 Intake Total 75 ml 982 ml 366.8 ml Output Total 210 ml 405 ml Balance -135 ml 577 ml 366.8 ml Physical Exam General: Alert, Oriented X3, Cooperative, No acute distress Heart: Regular rate, Other (AFIB RVR) Lungs: Clear Abdomen: Normal bowel sounds, Soft, No tenderness Extremities: No clubbing, No cyanosis Skin: No rashes, No breakdown, No significant lesion Labs Labs: Laboratory Tests Test 12/23/19 04:30 White Blood Count 8.6 x10^3/uL (4.0-11.0) Red Blood Count 3.70 x10^6/uL (3.50-5.40) Hemoglobin 7.9 g/dL (12.0-15.5) Hematocrit 24.9 % (36.0-47.0) Mean Corpuscular Volume 67 fL (79-100) Mean Corpuscular Hemoglobin 21 pg (25-35) Mean Corpuscular Hemoglobin Concent 32 g/dL (31-37) Red Cell Distribution Width 22.5 % (11.5-14.5) Platelet Count 330 x10^3/uL (140-400) Neutrophils (%) (Auto) 72 % (31-73) Lymphocytes (%) (Auto) 16 % (24-48) Monocytes (%) (Auto) 7 % (0-9) Eosinophils (%) (Auto) 4 % (0-3) Basophils (%) (Auto) 1 % (0-3) Neutrophils # (Auto) 6.2 x10^3/uL (1.8-7.7) Lymphocytes # (Auto) 1.4 x10^3/uL (1.0-4.8) Monocytes # (Auto) 0.6 x10^3/uL (0.0-1.1) Eosinophils # (Auto) 0.3 x10^3/uL (0.0-0.7) Basophils # (Auto) 0.1 x10^3/uL (0.0-0.2) Heparin Anti-Xa Act, Unfractionated 0.69 IU/mL (0.30-0.70) Sodium Level 139 mmol/L (136-145) Potassium Level 3.6 mmol/L (3.5-5.1) Chloride Level 104 mmol/L (98-107) Carbon Dioxide Level 27 mmol/L (21-32) Anion Gap 8 (6-14) Blood Urea Nitrogen 13 mg/dL (7-20) Creatinine 0.8 mg/dL (0.6-1.0) Estimated GFR (Cockcroft-Gault) 70.9 Glucose Level 116 mg/dL (70-99) Calcium Level 8.3 mg/dL (8.5-10.1) Assessment and Plan Assessmemt and Plan Problems Medical Problems: (1) Atrial fibrillation with RVR Status: Acute (2) Chest pain Status: Acute (3) Saddle embolism of pulmonary artery Status: Acute (4) Suspected COVID-19 virus infection Status: Acute Assessment Acute hypoxic respiratory failure with worsening hypoxia secondary to saddle pulmonary embolism Markedly increased troponin level secondary to severe right ventricular infarction and ischemia Atrial fibrillation with rapid ventricular response induced by PE Hypertension Hyperlipidemia Lumbar radiculopathy with significant decreased mobility with recent nontra umatic fall Hypothyroidism Microcytic anemia Plan Continue Heparin protocol Await CT angiogram result Oxygen supplementation Cardiac monitoring Trend hemoglobin Monitor ABGs Home meds Full code Appreciate subspecialist input Comment Review of Relevant I have reviewed the following items winifred (where applicable) has been applied. Medications: Current Medications Medications (Trade) Dose Ordered Sig/Danuta Route PRN Reason Start Time Stop Time Status Last Admin Dose Admin Famotidine (Pepcid) 20 mg BID PO 12/23/19 09:00 12/23/19 09:05 Iohexol (Omnipaque 350 Mg/ml) 100 ml 1X ONCE IV 12/23/19 08:00 12/23/19 08:01 DC 12/23/19 10:30 Justicifation of Admission Dx: Justifications for Admission: Justification of Admission Dx: Yes TOO DARNELL III DO Dec 23, 2019 12:15
--- NOTE | 2019-12-23 12:15 | PDOC ---
[facility] PROGRESS NOTE Date of Service DOS: DATE: 12/23/19 TIME: 12:14 Chief Complaint Chief Complaint Acute hypoxic respiratory failure with worsening hypoxia secondary to saddle pulmonary embolism Markedly increased troponin level secondary to severe right ventricular infarction and ischemia Atrial fibrillation with rapid ventricular response induced by PE Hypertension Hyperlipidemia Lumbar radiculopathy with significant decreased mobility with recent nontraumatic fall Hypothyroidism Microcytic anemia History of Present Illness History of Present Illness 12/23/2019 Patient seen and examined She just completed another repeat angiography of her chest I reviewed the films the saddle emboli seems to have resolved quite a bit by my eye (awaiting official report from radiologist) Discussed with RN Chart reviewed 12/22/2019 Patient seen and examined in ICU Patient is off BiPAP and down to 5L O2 per NC She received tPA yesterday, now on heparin drip COVID negative Discussed with RN Chart reviewed 12/21/19 Patient seen and examined in the ICU Hypoxia is worsening and she is requiring 100% oxygen on BiPAP Troponin increased to 31, she has begun tPA per Dr. Buckley Echo this AM showed normal LV wall motion, EF 50%, RV dilation secondary to tricuspid regurgitation Awaiting COVID results Discussed with RN Chart reviewed Vitals/I&O Vitals/I&O: Vital Signs Date Time Temp Pulse Resp B/P (MAP) Pulse Ox O2 Delivery O2 Flow Rate FiO2 12/23/19 11:12 98.1 111 22 127/67 (87) 100 Nasal Cannula 3.5 98.1 I & O 12/22/19 12/22/19 12/23/19 15:00 23:00 07:00 Intake Total 75 ml 982 ml 366.8 ml Output Total 210 ml 405 ml Balance -135 ml 577 ml 366.8 ml Physical Exam General: Alert, Oriented X3, Cooperative, No acute distress Heart: Regular rate, Other (AFIB RVR) Lungs: Clear Abdomen: Normal bowel sounds, Soft, No tenderness Extremities: No clubbing, No cyanosis Skin: No rashes, No breakdown, No significant lesion Labs Labs: Laboratory Tests Test 12/23/19 04:30 White Blood Count 8.6 x10^3/uL (4.0-11.0) Red Blood Count 3.70 x10^6/uL (3.50-5.40) Hemoglobin 7.9 g/dL (12.0-15.5) Hematocrit 24.9 % (36.0-47.0) Mean Corpuscular Volume 67 fL (79-100) Mean Corpuscular Hemoglobin 21 pg (25-35) Mean Corpuscular Hemoglobin Concent 32 g/dL (31-37) Red Cell Distribution Width 22.5 % (11.5-14.5) Platelet Count 330 x10^3/uL (140-400) Neutrophils (%) (Auto) 72 % (31-73) Lymphocytes (%) (Auto) 16 % (24-48) Monocytes (%) (Auto) 7 % (0-9) Eosinophils (%) (Auto) 4 % (0-3) Basophils (%) (Auto) 1 % (0-3) Neutrophils # (Auto) 6.2 x10^3/uL (1.8-7.7) Lymphocytes # (Auto) 1.4 x10^3/uL (1.0-4.8) Monocytes # (Auto) 0.6 x10^3/uL (0.0-1.1) Eosinophils # (Auto) 0.3 x10^3/uL (0.0-0.7) Basophils # (Auto) 0.1 x10^3/uL (0.0-0.2) Heparin Anti-Xa Act, Unfractionated 0.69 IU/mL (0.30-0.70) Sodium Level 139 mmol/L (136-145) Potassium Level 3.6 mmol/L (3.5-5.1) Chloride Level 104 mmol/L (98-107) Carbon Dioxide Level 27 mmol/L (21-32) Anion Gap 8 (6-14) Blood Urea Nitrogen 13 mg/dL (7-20) Creatinine 0.8 mg/dL (0.6-1.0) Estimated GFR (Cockcroft-Gault) 70.9 Glucose Level 116 mg/dL (70-99) Calcium Level 8.3 mg/dL (8.5-10.1) Assessment and Plan Assessmemt and Plan Problems Medical Problems: (1) Atrial fibrillation with RVR Status: Acute (2) Chest pain Status: Acute (3) Saddle embolism of pulmonary artery Status: Acute (4) Suspected COVID-19 virus infection Status: Acute Acute hypoxic respiratory failure with worsening hypoxia secondary to saddle pulmonary embolism Markedly increased troponin level secondary to severe right ventricular infarction and ischemia Atrial fibrillation with rapid ventricular response induced by PE Hypertension Hyperlipidemia Lumbar radiculopathy with significant decreased mobility with recent nontraumatic fall Hypothyroidism Microcytic anemia PLAN Cardiac monitoring Heparin drip hope to ion exchange operator to p.o. anticoagulation soon Oxygen supplementation Monitor hemoglobin Monitor ABGs Home meds Full code Appreciate cardiology and pulmonology input Comment Review of Relevant I have reviewed the following items winifred (where applicable) has been applied. Medications: Current Medications Medications (Trade) Dose Ordered Sig/Danuta Route PRN Reason Start Time Stop Time Status Last Admin Dose Admin Famotidine (Pepcid) 20 mg BID PO 12/23/19 09:00 12/23/19 09:05 Iohexol (Omnipaque 350 Mg/ml) 100 ml 1X ONCE IV 12/23/19 08:00 12/23/19 08:01 DC 12/23/19 10:30 Justicifation of Admission Dx: Justifications for Admission: Justification of Admission Dx: Yes TOO DARNELL III DO Dec 23, 2019 12:15
[2019-12-23] MEDS: cefTRIAXone IV Push 1 GM VIAL. IVP SCH (14:25)
[2019-12-23 15:40] VITALS: BP 153/79
[2019-12-23] MEDS: ALPRAZolam 0.25 MG TABLET PO PRN (20:32)
[2019-12-23] MEDS: IPRATROPIUM/ALBUTEROL 20/100mcg/INH INHALER. INH SCH (20:33)
[2019-12-23 23:32] VITALS: BP 134/74
[2019-12-24 03:45] VITALS: BP 135/65
[2019-12-24 04:21] LABS: BASO # 0.1 x10^3/uL (0.0-0.2); BASO % 1 % (0-3); EOS # 0.4 x10^3/uL (0.0-0.7); EOS % 5 % (0-3); HEMATOCRIT 26.3 % (36.0-47.0); HEMOGLOBIN 8.2 g/dL (12.0-15.5); LYMPH # 1.5 x10^3/uL (1.0-4.8); LYMPH % 20 % (24-48); MEAN CORPUSCULAR HEMOGLOBIN 21 pg (25-35); MEAN CORPUSCULAR HGB CONC 31 g/dL (31-37); MEAN CORPUSCULAR VOLUME 68 fL (79-100); MONO # 0.5 x10^3/uL (0.0-1.1); MONO % 7 % (0-9); NEUT # 5.3 x10^3/uL (1.8-7.7); NEUT % 68 % (31-73); PLATELET COUNT 378 x10^3/uL (140-400); WHITE BLOOD COUNT 7.9 x10^3/uL (4.0-11.0)
[2019-12-24 05:22] LABS: CALCIUM 8.7 mg/dL (8.5-10.1); CREATININE 0.9 mg/dL (0.6-1.0); GFR 61.9; POTASSIUM 3.4 mmol/L (3.5-5.1)
[2019-12-24] MEDS: LEVOTHYROXINE 125 MCG TABLET PO SCH (06:27)
[2019-12-24] MEDS: BUDESONIDE 0.5 MG/2 ML NEBU. NEB SCH ×2 (07:31→17:39)
[2019-12-24 07:40] VITALS: BP 137/88
[2019-12-24] MEDS: IPRATROPIUM/ALBUTEROL 20/100mcg/INH INHALER. INH SCH ×4 (08:43→21:14)
[2019-12-24] MEDS: FAMOTIDINE 20 MG TABLET. PO SCH ×2 (08:45→21:14)
[2019-12-24] MEDS: CYCLOBENZAPRINE 10 MG TABLET. PO SCH ×3 (08:45→21:14)
[2019-12-24 11:17] VITALS: BP 161/78
--- NOTE | 2019-12-24 11:42 | PDOC ---
PROGRESS NOTES Date of Service: DATE: 12/24/19 TIME: 11:42 Chief Complaint Chief Complaint impression Acute hypoxic respiratory failure with worsening hypoxia secondary to saddle pulmonary embolism Markedly increased troponin level secondary to severe right ventricular infarction and ischemia Atrial fibrillation with rapid ventricular response induced by PE moderate tricuspid regurgitation with an estimated PAP of 71 mmHg. c/w severe pulm hypertension Hypertension Hyperlipidemia Lumbar radiculopathy with significant decreased mobility with recent nontraumatic fall Hypothyroidism Microcytic anemia History of Present Illness History of Present Illness 12/23/2019 Patient seen and examined She just completed another repeat angiography of her chest I reviewed the films the saddle emboli seems to have resolved quite a bit by my eye (awaiting official report from radiologist) Discussed with RN Chart reviewed 12/22/2019 Patient seen and examined in ICU Patient is off BiPAP and down to 5L O2 per NC She received tPA yesterday, now on heparin drip COVID negative Discussed with RN Chart reviewed 12/21/19 Patient seen and examined in the ICU Hypoxia is worsening and she is requiring 100% oxygen on BiPAP Troponin increased to 31, she has begun tPA per Dr. Buckley Echo this AM showed normal LV wall motion, EF 50%, RV dilation secondary to tricuspid regurgitation Awaiting COVID results Discussed with RN Chart reviewed Vitals Vitals Vital Signs Date Time Temp Pulse Resp B/P (MAP) Pulse Ox O2 Delivery O2 Flow Rate FiO2 12/24/19 11:17 98.1 142 22 161/78 (105) 96 Nasal Cannula 2.0 98.1 Physical Exam General: Alert, Oriented X3, Cooperative, No acute distress Heart: Regular rate, Other (AFIB RVR) Lungs: Clear Abdomen: Normal bowel sounds, Soft, No tenderness Extremities: No clubbing, No cyanosis Skin: No rashes, No breakdown, No significant lesion Labs LABS LEFT VENTRICLE The left ventricle is normal size. There is mild to moderate concentric left ventricular hypertrophy. The left ventricular systolic function is normal and the ejection fraction is within normal range. The Ejection Fraction is 50%. There is normal LV segmental wall motion. Tissue Doppler imaging reveals moderate left ventricular diastolic dysfunction. RIGHT VENTRICLE The right ventricle is moderately to severly dilated measuring 5.2 cm. There is normal right ventricular wall thickness. The right ventricular systolic function is normal. ATRIA The left atrium is borderline dilated. The right atrium is moderately dilated. The interatrial septum bows toward left atrium consistent with elevated right atrial pressure. The interatrial septum is intact with no evidence for an atrial septal defect or patent foramen ovale as noted on 2-D or Doppler imaging. AORTIC VALVE The aortic valve is thickened but opens well. Doppler and Color Flow revealed no significant aortic regurgitation. There is no significant aortic valvular stenosis. Calculated aortic valve area is 1.69 cm2 with maximum pressure gradient of 10 mmHg and mean pressure gradient of 6 mmHg. MITRAL VALVE The mitral valve is thickened but opens well. There is no evidence of mitral valve prolapse. There is no mitral valve stenosis. Doppler and Color-flow revealed trace mitral regurgitation. TRICUSPID VALVE The tricuspid valve is normal in structure and function. Doppler and Color Flow revealed mild to moderate tricuspid regurgitation with an estimated PAP of 71 mmHg. There is no tricuspid valve stenosis. PULMONIC VALVE The pulmonic valve is not well visualized. Doppler and Color Flow revealed trace to mild pulmonic valvular regurgitation. There is no pulmonic valvular stenosis. GREAT VESSELS The aortic root is normal in size. The IVC is dilated. PERICARDIAL EFFUSION There is no evidence of significant pericardial effusion. Critical Notification Critical Value: No <Conclusion> The left ventricular systolic function is normal and the ejection fraction is within normal range. The Ejection Fraction is 50%. There is normal LV segmental wall motion. The right ventricle is moderately to severly dilated measuring 5.2 cm. Doppler and Color Flow revealed mild to moderate tricuspid regurgitation with an estimated PAP of 71 mmHg. Signed by : Vitaliy Dixon, Electronically Approved : 12/21/2019 11:06:49 Laboratory Tests Test 12/24/19 04:00 White Blood Count 7.9 x10^3/uL (4.0-11.0) Red Blood Count 3.90 x10^6/uL (3.50-5.40) Hemoglobin 8.2 g/dL (12.0-15.5) Hematocrit 26.3 % (36.0-47.0) Mean Corpuscular Volume 68 fL (79-100) Mean Corpuscular Hemoglobin 21 pg (25-35) Mean Corpuscular Hemoglobin Concent 31 g/dL (31-37) Red Cell Distribution Width 23.0 % (11.5-14.5) Platelet Count 378 x10^3/uL (140-400) Neutrophils (%) (Auto) 68 % (31-73) Lymphocytes (%) (Auto) 20 % (24-48) Monocytes (%) (Auto) 7 % (0-9) Eosinophils (%) (Auto) 5 % (0-3) Basophils (%) (Auto) 1 % (0-3) Neutrophils # (Auto) 5.3 x10^3/uL (1.8-7.7) Lymphocytes # (Auto) 1.5 x10^3/uL (1.0-4.8) Monocytes # (Auto) 0.5 x10^3/uL (0.0-1.1) Eosinophils # (Auto) 0.4 x10^3/uL (0.0-0.7) Basophils # (Auto) 0.1 x10^3/uL (0.0-0.2) Heparin Anti-Xa Act, Unfractionated 0.77 IU/mL (0.30-0.70) Sodium Level 142 mmol/L (136-145) Potassium Level 3.4 mmol/L (3.5-5.1) Chloride Level 106 mmol/L (98-107) Carbon Dioxide Level 29 mmol/L (21-32) Anion Gap 7 (6-14) Blood Urea Nitrogen 9 mg/dL (7-20) Creatinine 0.9 mg/dL (0.6-1.0) Estimated GFR (Cockcroft-Gault) 61.9 Glucose Level 137 mg/dL (70-99) Calcium Level 8.7 mg/dL (8.5-10.1) Assessment and Plan Assessmemt and Plan Problems Medical Problems: (1) Atrial fibrillation with RVR Status: Acute (2) Chest pain Status: Acute (3) Saddle embolism of pulmonary artery Status: Acute (4) Suspected COVID-19 virus infection Status: Acute Comment Review of Relevant I have reviewed the following items winifred (where applicable) has been applied. Labs Laboratory Tests Test 12/23/19 04:30 12/24/19 04:00 White Blood Count 8.6 x10^3/uL (4.0-11.0) 7.9 x10^3/uL (4.0-11.0) Red Blood Count 3.70 x10^6/uL (3.50-5.40) 3.90 x10^6/uL (3.50-5.40) Hemoglobin 7.9 g/dL (12.0-15.5) 8.2 g/dL (12.0-15.5) Hematocrit 24.9 % (36.0-47.0) 26.3 % (36.0-47.0) Mean Corpuscular Volume 67 fL (79-100) 68 fL (79-100) Mean Corpuscular Hemoglobin 21 pg (25-35) 21 pg (25-35) Mean Corpuscular Hemoglobin Concent 32 g/dL (31-37) 31 g/dL (31-37) Red Cell Distribution Width 22.5 % (11.5-14.5) 23.0 % (11.5-14.5) Platelet Count 330 x10^3/uL (140-400) 378 x10^3/uL (140-400) Neutrophils (%) (Auto) 72 % (31-73) 68 % (31-73) Lymphocytes (%) (Auto) 16 % (24-48) 20 % (24-48) Monocytes (%) (Auto) 7 % (0-9) 7 % (0-9) Eosinophils (%) (Auto) 4 % (0-3) 5 % (0-3) Basophils (%) (Auto) 1 % (0-3) 1 % (0-3) Neutrophils # (Auto) 6.2 x10^3/uL (1.8-7.7) 5.3 x10^3/uL (1.8-7.7) Lymphocytes # (Auto) 1.4 x10^3/uL (1.0-4.8) 1.5 x10^3/uL (1.0-4.8) Monocytes # (Auto) 0.6 x10^3/uL (0.0-1.1) 0.5 x10^3/uL (0.0-1.1) Eosinophils # (Auto) 0.3 x10^3/uL (0.0-0.7) 0.4 x10^3/uL (0.0-0.7) Basophils # (Auto) 0.1 x10^3/uL (0.0-0.2) 0.1 x10^3/uL (0.0-0.2) Heparin Anti-Xa Act, Unfractionated 0.69 IU/mL (0.30-0.70) 0.77 IU/mL (0.30-0.70) Sodium Level 139 mmol/L (136-145) 142 mmol/L (136-145) Potassium Level 3.6 mmol/L (3.5-5.1) 3.4 mmol/L (3.5-5.1) Chloride Level 104 mmol/L (98-107) 106 mmol/L (98-107) Carbon Dioxide Level 27 mmol/L (21-32) 29 mmol/L (21-32) Anion Gap 8 (6-14) 7 (6-14) Blood Urea Nitrogen 13 mg/dL (7-20) 9 mg/dL (7-20) Creatinine 0.8 mg/dL (0.6-1.0) 0.9 mg/dL (0.6-1.0) Estimated GFR (Cockcroft-Gault) 70.9 61.9 Glucose Level 116 mg/dL (70-99) 137 mg/dL (70-99) Calcium Level 8.3 mg/dL (8.5-10.1) 8.7 mg/dL (8.5-10.1) Laboratory Tests Test 12/24/19 04:00 White Blood Count 7.9 x10^3/uL (4.0-11.0) Red Blood Count 3.90 x10^6/uL (3.50-5.40) Hemoglobin 8.2 g/dL (12.0-15.5) Hematocrit 26.3 % (36.0-47.0) Mean Corpuscular Volume 68 fL (79-100) Mean Corpuscular Hemoglobin 21 pg (25-35) Mean Corpuscular Hemoglobin Concent 31 g/dL (31-37) Red Cell Distribution Width 23.0 % (11.5-14.5) Platelet Count 378 x10^3/uL (140-400) Neutrophils (%) (Auto) 68 % (31-73) Lymphocytes (%) (Auto) 20 % (24-48) Monocytes (%) (Auto) 7 % (0-9) Eosinophils (%) (Auto) 5 % (0-3) Basophils (%) (Auto) 1 % (0-3) Neutrophils # (Auto) 5.3 x10^3/uL (1.8-7.7) Lymphocytes # (Auto) 1.5 x10^3/uL (1.0-4.8) Monocytes # (Auto) 0.5 x10^3/uL (0.0-1.1) Eosinophils # (Auto) 0.4 x10^3/uL (0.0-0.7) Basophils # (Auto) 0.1 x10^3/uL (0.0-0.2) Heparin Anti-Xa Act, Unfractionated 0.77 IU/mL (0.30-0.70) Sodium Level 142 mmol/L (136-145) Potassium Level 3.4 mmol/L (3.5-5.1) Chloride Level 106 mmol/L (98-107) Carbon Dioxide Level 29 mmol/L (21-32) Anion Gap 7 (6-14) Blood Urea Nitrogen 9 mg/dL (7-20) Creatinine 0.9 mg/dL (0.6-1.0) Estimated GFR (Cockcroft-Gault) 61.9 Glucose Level 137 mg/dL (70-99) Calcium Level 8.7 mg/dL (8.5-10.1) Microbiology 12/21/19 Urine Culture - Final, Complete 12/20/19 Blood Culture - Preliminary, Resulted NO GROWTH AFTER 3 DAYS Medications Current Medications Sodium Chloride 1,000 ml @ 1,000 mls/hr 1X ONCE IV Last administered on 12/20/19at 12:09; Start 12/20/19 at 11:45; Stop 12/20/19 at 12:44; Status DC Ceftriaxone Sodium (Rocephin) 1 gm 1X ONCE IVP Last administered on 12/20/19at 12:07; Start 12/20/19 at 11:45; Stop 12/20/19 at 11:47; Status DC Iohexol (Omnipaque 350 Mg/ml) 90 ml 1X ONCE IV ; Start 12/20/19 at 13:00; Stop 12/20/19 at 13:01; Status DC Metoprolol Tartrate (Lopressor Vial) 5 mg 1X ONCE IVP Last administered on 12/20/19at 13:03; Start 12/20/19 at 13:15; Stop 12/20/19 at 13:16; Status DC Heparin Sodium/ Dextrose 250 ml @ 0 mls/hr CONT PRN IV PER PROTOCOL Last administered on 12/20/19at 13:47; Start 12/20/19 at 13:30; Stop 12/20/19 at 14:19; Status DC Heparin Sodium (Porcine) (Heparin Sodium) 2,150 unit PRN Q6HRS PRN IV FOR UFH LEVEL LESS THAN 0.2 Last administered on 12/20/19at 13:45; Start 12/20/19 at 13:30; Stop 12/20/19 at 14:19; Status DC Ondansetron HCl (Zofran) 4 mg PRN Q8HRS PRN IV NAUSEA/VOMITING Last administered on 12/20/19at 17:31; Start 12/20/19 at 13:45; Stop 12/21/19 at 13:44; Status DC Heparin Sodium/ Dextrose 250 ml @ 0 mls/hr CONT PRN IV PER PROTOCOL Last administered on 12/23/19at 20:37; Start 12/20/19 at 14:15 Heparin Sodium (Porcine) (Heparin Sodium) 2,600 unit PRN Q6HRS PRN IV FOR UFH LEVEL LESS THAN 0.2; Start 12/20/19 at 14:15 Heparin Sodium (Porcine) (Heparin Sodium) 1,300 unit PRN Q6HRS PRN IV FOR UFH LEVEL 0.2 - 0.29; Start 12/20/19 at 14:15 Aspirin (Ecotrin) 325 mg 1X ONCE PO ; Start 12/20/19 at 14:45; Stop 12/20/19 at 14:46; Status DC Metoprolol Succinate (Toprol Xl) 25 mg BID PO ; Start 12/20/19 at 14:30; Stop 12/20/19 at 15:49; Status DC Metoprolol Tartrate (Lopressor Vial) 5 mg 1X ONCE IVP Last administered on 12/20/19at 14:52; Start 12/20/19 at 14:45; Stop 12/20/19 at 14:46; Status DC Metoprolol Tartrate (Lopressor Vial) 5 mg 1X ONCE IVP ; Start 12/20/19 at 14:45; Stop 12/20/19 at 14:46; Status Cancel Digoxin (Lanoxin) 500 mcg 1X ONCE IV Last administered on 12/20/19at 15:59; Start 12/20/19 at 16:15; Stop 12/20/19 at 16:16; Status DC Diltiazem HCl 125 mg/Sodium Chloride 125 ml @ 5 mls/hr CONT PRN IV SEE I/O RECORD Last administered on 12/22/19at 03:24; Start 12/20/19 at 16:00; Stop 12/22/19 at 09:15; Status DC Cyclobenzaprine HCl (Flexeril) 10 mg TID PO Last administered on 12/24/19at 08:45; Start 12/20/19 at 21:00 Levothyroxine Sodium (Synthroid) 125 mcg DAILY06 PO Last administered on 12/24/19at 06:27; Start 12/21/19 at 06:00 Tramadol HCl (Ultram) 50 mg PRN DAILY PRN PO PAIN; Start 12/20/19 at 18:45 Info (Anti-Coagulation Monitoring By Pharmacy) 1 each PRN DAILY PRN MC SEE COMMENTS Last administered on 12/23/19at 09:58; Start 12/21/19 at 08:30 Alteplase, Recombinant 100 ml @ 50 mls/hr 1X ONCE IV Last administered on 12/21/19at 09:22; Start 12/21/19 at 09:00; Stop 12/21/19 at 10:59; Status DC Alprazolam (Xanax) 0.25 mg PRN Q6HRS PRN PO ANXIETY / AGITATION Last administered on 12/23/19at 20:32; Start 12/21/19 at 15:30 Famotidine (Pepcid) 20 mg PRN BID PRN PO HEARTBURN / GAS Last administered on 12/23/19at 04:19; Start 12/21/19 at 23:15; Stop 12/23/19 at 05:29; Status DC Budesonide (Pulmicort) 0.5 mg RTBID NEB Last administered on 12/23/19at 07:20; Start 12/22/19 at 09:00 Levalbuterol HCl (Xopenex) 1.25 mg PRN Q4HRS PRN NEB SHORTNESS OF BREATH Last administered on 12/22/19at 20:05; Start 12/22/19 at 09:00; Stop 12/23/19 at 18:33; Status DC Diltiazem HCl (Cardizem 24hr Cd) 240 mg DAILY PO Last administered on 12/24/19 08:45; Start 12/22/19 at 09:15 Famotidine (Pepcid) 20 mg BID PO Last administered on 12/24/19at 08:45; Start 12/23/19 at 09:00 Iohexol (Omnipaque 350 Mg/ml) 100 ml 1X ONCE IV Last administered on 12/23/19at 10:30; Start 12/23/19 at 08:00; Stop 12/23/19 at 08:01; Status DC Ceftriaxone Sodium (Rocephin) 1 gm Q24H IVP Last administered on 12/23/19at 14:25; Start 12/23/19 at 14:00 Albuterol/ Ipratropium (Combivent Respimat 20-100 Mcg) 1 puff RTQID INH Last administered on 12/24/19at 08:43; Start 12/23/19 at 20:00 Active Scripts Active Reported Cetirizine Hcl 10 Mg Tablet 1 Tab PO DAILY Ditropan Xl (Oxybutynin Chloride) 10 Mg Tab.er.24 10 Mg PO DAILY Zoloft (Sertraline Hcl) 100 Mg Tablet 100 Mg PO DAILY Ventolin Hfa Inhaler (Albuterol Sulfate) 18 Gm Hfa.aer.ad 2 Puff INH QID Advair 100-50 Diskus (Fluticasone/Salmeterol) 1 Each Disk.w.dev 1 Inh IH BID Xanax (Alprazolam) 0.25 Mg Tablet 0.25 Mg PO PRN Q6HRS PRN Cyclobenzaprine Hcl 10 Mg Tablet 10 Mg PO TID Levothyroxine Sodium 125 Mcg Tablet 125 Mcg PO DAILYAC Ranitidine Hcl 300 Mg Capsule 300 Mg PO DAILY Tramadol Hcl 50 Mg Tablet 50 Mg PO DAILY PRN Bystolic (Nebivolol) 5 Mg Tablet 5 Mg PO DAILY Vitals/I & O Vital Sign - Last 24 Hours 12/23/19 12/23/19 12/23/19 12/23/19 15:40 19:45 19:50 23:32 Temp 98.0 98.2 98.2 98.0 98.2 98.2 Pulse 120 114 110 Resp 20 20 20 B/P (MAP) 153/79 (103) 134/74 (94) Pulse Ox 98 98 99 O2 Delivery Nasal Cannula Room Air Nasal Cannula Nasal Cannula O2 Flow Rate 3.5 2.0 2.0 12/24/19 12/24/19 12/24/19 12/24/19 03:45 07:40 08:30 08:45 Temp 98.2 97.9 98.2 97.9 Pulse 104 120 127 Resp 20 18 B/P (MAP) 135/65 (88) 137/88 (104) 137/88 Pulse Ox 100 94 O2 Delivery Nasal Cannula Nasal Cannula Nasal Cannula O2 Flow Rate 2.0 2.0 2.0 12/24/19 11:17 Temp 98.1 98.1 Pulse 142 Resp 22 B/P (MAP) 161/78 (105) Pulse Ox 96 O2 Delivery Nasal Cannula O2 Flow Rate 2.0 Intake and Output 12/23/19 12/23/19 12/24/19 15:00 23:00 07:00 Intake Total 300 ml 760 ml Output Total 300 ml 1900 ml Balance 0 ml -1140 ml Justicifation of Admission Dx: Justifications for Admission: Justification of Admission Dx: Yes OMER GLASS MD Dec 24, 2019 11:42
[2019-12-24] MEDS: ANTI-COAG MONITOR BY PHARMACY. MC PRN (12:09)
--- NOTE | 2019-12-24 12:39 | PDOC ---
PULMONARY PROGRESS NOTES DATE: 12/24/19 TIME: 12:37 Subjective sob is better, cough sputum better w abx started yesterday, no cp Pt. is S/P systemic TPA on 12/21/2019, now on N/C oxygen, 2 lpm Vitals Vital Signs Date Time Temp Pulse Resp B/P (MAP) Pulse Ox O2 Delivery O2 Flow Rate FiO2 12/24/19 11:17 98.1 142 22 161/78 (105) 96 Nasal Cannula 2.0 98.1 ROS: No Nausea, No Chest Pain, No Abdominal Pain, No Increase Cough General: Alert Lungs: Clear Cardiovascular: S1, S2 Abdomen: Soft, Non-tender Neuro Exam: Alert Extremities: No Edema Skin: Warm Labs Laboratory Tests Test 12/23/19 04:30 12/24/19 04:00 White Blood Count 8.6 x10^3/uL (4.0-11.0) 7.9 x10^3/uL (4.0-11.0) Red Blood Count 3.70 x10^6/uL (3.50-5.40) 3.90 x10^6/uL (3.50-5.40) Hemoglobin 7.9 g/dL (12.0-15.5) 8.2 g/dL (12.0-15.5) Hematocrit 24.9 % (36.0-47.0) 26.3 % (36.0-47.0) Mean Corpuscular Volume 67 fL (79-100) 68 fL (79-100) Mean Corpuscular Hemoglobin 21 pg (25-35) 21 pg (25-35) Mean Corpuscular Hemoglobin Concent 32 g/dL (31-37) 31 g/dL (31-37) Red Cell Distribution Width 22.5 % (11.5-14.5) 23.0 % (11.5-14.5) Platelet Count 330 x10^3/uL (140-400) 378 x10^3/uL (140-400) Neutrophils (%) (Auto) 72 % (31-73) 68 % (31-73) Lymphocytes (%) (Auto) 16 % (24-48) 20 % (24-48) Monocytes (%) (Auto) 7 % (0-9) 7 % (0-9) Eosinophils (%) (Auto) 4 % (0-3) 5 % (0-3) Basophils (%) (Auto) 1 % (0-3) 1 % (0-3) Neutrophils # (Auto) 6.2 x10^3/uL (1.8-7.7) 5.3 x10^3/uL (1.8-7.7) Lymphocytes # (Auto) 1.4 x10^3/uL (1.0-4.8) 1.5 x10^3/uL (1.0-4.8) Monocytes # (Auto) 0.6 x10^3/uL (0.0-1.1) 0.5 x10^3/uL (0.0-1.1) Eosinophils # (Auto) 0.3 x10^3/uL (0.0-0.7) 0.4 x10^3/uL (0.0-0.7) Basophils # (Auto) 0.1 x10^3/uL (0.0-0.2) 0.1 x10^3/uL (0.0-0.2) Heparin Anti-Xa Act, Unfractionated 0.69 IU/mL (0.30-0.70) 0.77 IU/mL (0.30-0.70) Sodium Level 139 mmol/L (136-145) 142 mmol/L (136-145) Potassium Level 3.6 mmol/L (3.5-5.1) 3.4 mmol/L (3.5-5.1) Chloride Level 104 mmol/L (98-107) 106 mmol/L (98-107) Carbon Dioxide Level 27 mmol/L (21-32) 29 mmol/L (21-32) Anion Gap 8 (6-14) 7 (6-14) Blood Urea Nitrogen 13 mg/dL (7-20) 9 mg/dL (7-20) Creatinine 0.8 mg/dL (0.6-1.0) 0.9 mg/dL (0.6-1.0) Estimated GFR (Cockcroft-Gault) 70.9 61.9 Glucose Level 116 mg/dL (70-99) 137 mg/dL (70-99) Calcium Level 8.3 mg/dL (8.5-10.1) 8.7 mg/dL (8.5-10.1) Laboratory Tests Test 12/24/19 04:00 White Blood Count 7.9 x10^3/uL (4.0-11.0) Red Blood Count 3.90 x10^6/uL (3.50-5.40) Hemoglobin 8.2 g/dL (12.0-15.5) Hematocrit 26.3 % (36.0-47.0) Mean Corpuscular Volume 68 fL (79-100) Mean Corpuscular Hemoglobin 21 pg (25-35) Mean Corpuscular Hemoglobin Concent 31 g/dL (31-37) Red Cell Distribution Width 23.0 % (11.5-14.5) Platelet Count 378 x10^3/uL (140-400) Neutrophils (%) (Auto) 68 % (31-73) Lymphocytes (%) (Auto) 20 % (24-48) Monocytes (%) (Auto) 7 % (0-9) Eosinophils (%) (Auto) 5 % (0-3) Basophils (%) (Auto) 1 % (0-3) Neutrophils # (Auto) 5.3 x10^3/uL (1.8-7.7) Lymphocytes # (Auto) 1.5 x10^3/uL (1.0-4.8) Monocytes # (Auto) 0.5 x10^3/uL (0.0-1.1) Eosinophils # (Auto) 0.4 x10^3/uL (0.0-0.7) Basophils # (Auto) 0.1 x10^3/uL (0.0-0.2) Heparin Anti-Xa Act, Unfractionated 0.77 IU/mL (0.30-0.70) Sodium Level 142 mmol/L (136-145) Potassium Level 3.4 mmol/L (3.5-5.1) Chloride Level 106 mmol/L (98-107) Carbon Dioxide Level 29 mmol/L (21-32) Anion Gap 7 (6-14) Blood Urea Nitrogen 9 mg/dL (7-20) Creatinine 0.9 mg/dL (0.6-1.0) Estimated GFR (Cockcroft-Gault) 61.9 Glucose Level 137 mg/dL (70-99) Calcium Level 8.7 mg/dL (8.5-10.1) Medications Active Scripts Medications Dose Route/Sig Max Daily Dose Days Date Category Cetirizine Hcl 10 Mg Tablet 1 Tab PO DAILY 12/21/19 Reported Ditropan Xl (Oxybutynin Chloride) 10 Mg Tab.er.24 10 Mg PO DAILY 01/22/16 Reported Zoloft (Sertraline Hcl) 100 Mg Tablet 100 Mg PO DAILY 01/22/16 Reported Ventolin Hfa Inhaler (Albuterol Sulfate) 18 Gm Hfa.aer.ad 2 Puff INH QID 01/22/16 Reported Advair 100-50 Diskus (Fluticasone/Salmeterol) 1 Each Disk.w.dev 1 Inh IH BID 01/22/16 Reported Xanax (Alprazolam) 0.25 Mg Tablet 0.25 Mg PO PRN Q6HRS PRN 01/22/16 Reported Cyclobenzaprine Hcl 10 Mg Tablet 10 Mg PO TID 01/22/16 Reported Levothyroxine Sodium 125 Mcg Tablet 125 Mcg PO DAILYAC 01/22/16 Reported Ranitidine Hcl 300 Mg Capsule 300 Mg PO DAILY 01/22/16 Reported Tramadol Hcl 50 Mg Tablet 50 Mg PO DAILY PRN 01/22/16 Reported Bystolic (Nebivolol) 5 Mg Tablet 5 Mg PO DAILY 01/22/16 Reported Comments cta 12/23/19 reviewed Continued presence of multiple smaller bilateral pulmonary emboli but resolution of the saddle embolus seen previously. New patchy areas of groundglass infiltrates bilaterally especially peripherally in the left upper lobe. These may reflect areas of atelectasis but recommend clinical correlation and follow-up. BLE U/S IMPRESSION: * Deep vein thrombosis seen on the left. ECHIO 12/21/2019 <Conclusion> The left ventricular systolic function is normal and the ejection fraction is within normal range. The Ejection Fraction is 50%. There is normal LV segmental wall motion. The right ventricle is moderately to severly dilated measuring 5.2 cm. Doppler and Color Flow revealed mild to moderate tricuspid regurgitation with an estimated PAP of 71 mmHg. Impression . IMPRESSION: 1. Acute hypoxic respiratory failure secondary to acute massive pulmonary embolism with hemodynamic stability . Risk factor is likely related to recent immobility for the last 2 weeks due to her lumbar radiculopathy and also from the fall when she twisted her knee. Underlying obesity would be another risk factor. She has no known cancers. Not on any form of estrogens.-- s/p systemic TPA with sig improvement, off BIPAP, oxygenation improving 2. Atrial fibrillation with rapid ventricular response, likely caused by right ventricular strain., on cardizem 3. No significant tobacco history. 4. No history of any hypercoagulable state. 5. LLE DVT 6. Markedly elevated troponin (peak 31). Out of proportion to usually seen in RV infarction. c per cardiology Plan . RECOMMENDATIONS: Continue supplemental oxygen to keep sats above 92 %, now on N/C 2 lpm abx added for increased cough, yellow sputum and infilt fu covid19 testing pepcid bid for stress ulcer prophylaxis S/P systemic TPA with sig improvement of hypoxia .On Heparin drip. Repeat CTA chest, reviewed Follow cardiology recommendations-- continued management of AFIB- now rate controlled ECHO revied EF 50% BLE DPLX positive for LLE DVT NEBS A/C -- heparin gtt . Can start Eliquis hypercoagulable panel as an outpatient. Cath Wednesday. 3-6 months of AC D/W RN, pt DIONE GARCIA MD Dec 24, 2019 12:39
[2019-12-24] MEDS: cefTRIAXone IV Push 1 GM VIAL. IVP SCH (14:33)
[2019-12-24] MEDS: HEPARIN 25,000UTS/250ML PREMIX 250 ML IV PRN (14:36)
[2019-12-24] MEDS ORDERED: POTASSIUM CHLORIDE 20 MEQ TABLET.ER. PO ONE (15:00)
[2019-12-24 15:50] VITALS: BP 154/81
[2019-12-24] MEDS: ALPRAZolam 0.25 MG TABLET PO PRN (18:52)
[2019-12-24 20:03] VITALS: BP 154/92
[2019-12-24] MEDS: LACTOBACILLUS RHAMNOSUS GG 1 CAPSULE. PO SCH (21:14)
[2019-12-24] MEDS: traMADol 50 MG TABLET PO PRN (21:19)
--- NOTE | 2019-12-24 23:05 | NUR ---
Pt transferred down to 2N as was negative for Covid. Reported pain upon transfer - previous RN Kendrick had given pt pain pill. Pt repositioned in bed where back is straight instead of slumped. Pt reported some relief with position change. Pt situated and assessed. Momin emptied of clear yellow urine. Addendum: 12/25/19 at 0628 by CAITLIN PALACIOS RN RN Pt called out - has been confused for much of the night. Reported that he was freezing. Pt given another blanket. Pt lips lack color and pt paler than at start of shift. Temp taken 99.1. Also reporting shooting pains into lateral aspect of R foot and his inability to lie still. Oxycodone had been pulled - but with pt condition, morphine given to help alleviate pain faster. Within 10 min pt resting a little more comfortably. Will continue to monitor closely.
[2019-12-24 23:45] VITALS: BP 144/74
[2019-12-25] VITALS (16 sets, daily range): BP systolic 84–156; BP diastolic 6–87
[2019-12-25 05:40] LABS: BASO # 0.1 x10^3/uL (0.0-0.2); BASO % 1 % (0-3); EOS # 0.3 x10^3/uL (0.0-0.7); EOS % 4 % (0-3); HEMATOCRIT 25.7 % (36.0-47.0); HEMOGLOBIN 7.9 g/dL (12.0-15.5); LYMPH # 1.4 x10^3/uL (1.0-4.8); LYMPH % 19 % (24-48); MEAN CORPUSCULAR HEMOGLOBIN 21 pg (25-35); MEAN CORPUSCULAR HGB CONC 31 g/dL (31-37); MEAN CORPUSCULAR VOLUME 67 fL (79-100); MONO # 0.5 x10^3/uL (0.0-1.1); MONO % 7 % (0-9); NEUT % 69 % (31-73); PLATELET COUNT 423 x10^3/uL (140-400); RED BLOOD COUNT 3.82 x10^6/uL (3.50-5.40); RED CELL DISTRIBUTION WIDTH 23.2 % (11.5-14.5); WHITE BLOOD COUNT 7.3 x10^3/uL (4.0-11.0)
[2019-12-25 05:51] LABS: CALCIUM 8.4 mg/dL (8.5-10.1); CREATININE 0.7 mg/dL (0.6-1.0); GFR 82.7; POTASSIUM 4.2 mmol/L (3.5-5.1)
[2019-12-25] MEDS: LEVOTHYROXINE 125 MCG TABLET PO SCH (06:11)
[2019-12-25] MEDS: IPRATROPIUM/ALBUTEROL 20/100mcg/INH INHALER. INH SCH ×3 (08:00→17:18)
[2019-12-25] MEDS: BUDESONIDE 0.5 MG/2 ML NEBU. NEB SCH ×2 (08:05→19:31)
[2019-12-25] MEDS: LACTOBACILLUS RHAMNOSUS GG 1 CAPSULE. PO SCH ×2 (08:40→22:46)
[2019-12-25] MEDS: FAMOTIDINE 20 MG TABLET. PO SCH ×2 (08:44→22:45)
[2019-12-25] MEDS: CYCLOBENZAPRINE 10 MG TABLET. PO SCH ×3 (08:44→22:46)
--- NOTE | 2019-12-25 09:48 | PDOC ---
PULMONARY PROGRESS NOTES DATE: 12/25/19 TIME: 09:45 Subjective sob is better, cough sputum better no cp Pt. is S/P systemic TPA on 12/21/2019, now on N/C oxygen, 2 lpm Vitals Vital Signs Date Time Temp Pulse Resp B/P (MAP) Pulse Ox O2 Delivery O2 Flow Rate FiO2 12/25/19 08:38 122 136/81 12/25/19 08:07 100 Nasal Cannula 2.0 12/25/19 03:25 97.6 20 97.6 ROS: No Nausea, No Chest Pain, No Abdominal Pain, No Increase Cough General: Alert, No acute distress Lungs: Clear Cardiovascular: S1, S2 Abdomen: Soft, Non-tender Neuro Exam: Alert Extremities: No Edema Skin: Warm Labs Laboratory Tests Test 12/23/19 14:30 12/24/19 04:00 12/24/19 12:20 12/24/19 18:30 Coronavirus (PCR) Not detected (Not Detected) White Blood Count 7.9 x10^3/uL (4.0-11.0) Red Blood Count 3.90 x10^6/uL (3.50-5.40) Hemoglobin 8.2 g/dL (12.0-15.5) Hematocrit 26.3 % (36.0-47.0) Mean Corpuscular Volume 68 fL (79-100) Mean Corpuscular Hemoglobin 21 pg (25-35) Mean Corpuscular Hemoglobin Concent 31 g/dL (31-37) Red Cell Distribution Width 23.0 % (11.5-14.5) Platelet Count 378 x10^3/uL (140-400) Neutrophils (%) (Auto) 68 % (31-73) Lymphocytes (%) (Auto) 20 % (24-48) Monocytes (%) (Auto) 7 % (0-9) Eosinophils (%) (Auto) 5 % (0-3) Basophils (%) (Auto) 1 % (0-3) Neutrophils # (Auto) 5.3 x10^3/uL (1.8-7.7) Lymphocytes # (Auto) 1.5 x10^3/uL (1.0-4.8) Monocytes # (Auto) 0.5 x10^3/uL (0.0-1.1) Eosinophils # (Auto) 0.4 x10^3/uL (0.0-0.7) Basophils # (Auto) 0.1 x10^3/uL (0.0-0.2) Heparin Anti-Xa Act, Unfractionated 0.77 IU/mL (0.30-0.70) 0.67 IU/mL (0.30-0.70) 0.65 IU/mL (0.30-0.70) Sodium Level 142 mmol/L (136-145) Potassium Level 3.4 mmol/L (3.5-5.1) Chloride Level 106 mmol/L (98-107) Carbon Dioxide Level 29 mmol/L (21-32) Anion Gap 7 (6-14) Blood Urea Nitrogen 9 mg/dL (7-20) Creatinine 0.9 mg/dL (0.6-1.0) Estimated GFR (Cockcroft-Gault) 61.9 Glucose Level 137 mg/dL (70-99) Calcium Level 8.7 mg/dL (8.5-10.1) Test 12/25/19 04:45 White Blood Count 7.3 x10^3/uL (4.0-11.0) Red Blood Count 3.82 x10^6/uL (3.50-5.40) Hemoglobin 7.9 g/dL (12.0-15.5) Hematocrit 25.7 % (36.0-47.0) Mean Corpuscular Volume 67 fL (79-100) Mean Corpuscular Hemoglobin 21 pg (25-35) Mean Corpuscular Hemoglobin Concent 31 g/dL (31-37) Red Cell Distribution Width 23.2 % (11.5-14.5) Platelet Count 423 x10^3/uL (140-400) Neutrophils (%) (Auto) 69 % (31-73) Lymphocytes (%) (Auto) 19 % (24-48) Monocytes (%) (Auto) 7 % (0-9) Eosinophils (%) (Auto) 4 % (0-3) Basophils (%) (Auto) 1 % (0-3) Neutrophils # (Auto) 5.0 x10^3/uL (1.8-7.7) Lymphocytes # (Auto) 1.4 x10^3/uL (1.0-4.8) Monocytes # (Auto) 0.5 x10^3/uL (0.0-1.1) Eosinophils # (Auto) 0.3 x10^3/uL (0.0-0.7) Basophils # (Auto) 0.1 x10^3/uL (0.0-0.2) Heparin Anti-Xa Act, Unfractionated 0.47 IU/mL (0.30-0.70) Sodium Level 140 mmol/L (136-145) Potassium Level 4.2 mmol/L (3.5-5.1) Chloride Level 105 mmol/L (98-107) Carbon Dioxide Level 30 mmol/L (21-32) Anion Gap 5 (6-14) Blood Urea Nitrogen 9 mg/dL (7-20) Creatinine 0.7 mg/dL (0.6-1.0) Estimated GFR (Cockcroft-Gault) 82.7 Glucose Level 107 mg/dL (70-99) Calcium Level 8.4 mg/dL (8.5-10.1) Laboratory Tests Test 12/24/19 12:20 12/24/19 18:30 12/25/19 04:45 Heparin Anti-Xa Act, Unfractionated 0.67 IU/mL (0.30-0.70) 0.65 IU/mL (0.30-0.70) 0.47 IU/mL (0.30-0.70) White Blood Count 7.3 x10^3/uL (4.0-11.0) Red Blood Count 3.82 x10^6/uL (3.50-5.40) Hemoglobin 7.9 g/dL (12.0-15.5) Hematocrit 25.7 % (36.0-47.0) Mean Corpuscular Volume 67 fL (79-100) Mean Corpuscular Hemoglobin 21 pg (25-35) Mean Corpuscular Hemoglobin Concent 31 g/dL (31-37) Red Cell Distribution Width 23.2 % (11.5-14.5) Platelet Count 423 x10^3/uL (140-400) Neutrophils (%) (Auto) 69 % (31-73) Lymphocytes (%) (Auto) 19 % (24-48) Monocytes (%) (Auto) 7 % (0-9) Eosinophils (%) (Auto) 4 % (0-3) Basophils (%) (Auto) 1 % (0-3) Neutrophils # (Auto) 5.0 x10^3/uL (1.8-7.7) Lymphocytes # (Auto) 1.4 x10^3/uL (1.0-4.8) Monocytes # (Auto) 0.5 x10^3/uL (0.0-1.1) Eosinophils # (Auto) 0.3 x10^3/uL (0.0-0.7) Basophils # (Auto) 0.1 x10^3/uL (0.0-0.2) Sodium Level 140 mmol/L (136-145) Potassium Level 4.2 mmol/L (3.5-5.1) Chloride Level 105 mmol/L (98-107) Carbon Dioxide Level 30 mmol/L (21-32) Anion Gap 5 (6-14) Blood Urea Nitrogen 9 mg/dL (7-20) Creatinine 0.7 mg/dL (0.6-1.0) Estimated GFR (Cockcroft-Gault) 82.7 Glucose Level 107 mg/dL (70-99) Calcium Level 8.4 mg/dL (8.5-10.1) Medications Active Scripts Medications Dose Route/Sig Max Daily Dose Days Date Category Cetirizine Hcl 10 Mg Tablet 1 Tab PO DAILY 12/21/19 Reported Ditropan Xl (Oxybutynin Chloride) 10 Mg Tab.er.24 10 Mg PO DAILY 01/22/16 Reported Zoloft (Sertraline Hcl) 100 Mg Tablet 100 Mg PO DAILY 01/22/16 Reported Ventolin Hfa Inhaler (Albuterol Sulfate) 18 Gm Hfa.aer.ad 2 Puff INH QID 01/22/16 Reported Advair 100-50 Diskus (Fluticasone/Salmeterol) 1 Each Disk.w.dev 1 Inh IH BID 01/22/16 Reported Xanax (Alprazolam) 0.25 Mg Tablet 0.25 Mg PO PRN Q6HRS PRN 01/22/16 Reported Cyclobenzaprine Hcl 10 Mg Tablet 10 Mg PO TID 01/22/16 Reported Levothyroxine Sodium 125 Mcg Tablet 125 Mcg PO DAILYAC 01/22/16 Reported Ranitidine Hcl 300 Mg Capsule 300 Mg PO DAILY 01/22/16 Reported Tramadol Hcl 50 Mg Tablet 50 Mg PO DAILY PRN 01/22/16 Reported Bystolic (Nebivolol) 5 Mg Tablet 5 Mg PO DAILY 01/22/16 Reported Comments cta 12/23/19 reviewed Continued presence of multiple smaller bilateral pulmonary emboli but resolution of the saddle embolus seen previously. New patchy areas of groundglass infiltrates bilaterally especially peripherally in the left upper lobe. These may reflect areas of atelectasis but recommend clinical correlation and follow-up. BLE U/S IMPRESSION: * Deep vein thrombosis seen on the left. ECHIO 12/21/2019 <Conclusion> The left ventricular systolic function is normal and the ejection fraction is within normal range. The Ejection Fraction is 50%. There is normal LV segmental wall motion. The right ventricle is moderately to severly dilated measuring 5.2 cm. Doppler and Color Flow revealed mild to moderate tricuspid regurgitation with an estimated PAP of 71 mmHg. Impression . IMPRESSION: 1. Acute hypoxic respiratory failure secondary to acute massive pulmonary embolism . Risk factor is likely related to recent immobility for the last 2 weeks due to her lumbar radiculopathy and also from the fall when she twisted her knee. Underlying obesity would be another risk factor. She has no known cancers. Not on any form of estrogens.-- s/p systemic TPA with sig improvement, off BIPAP, oxygenation improved. 2. Atrial fibrillation with rapid ventricular response, likely caused by right ventricular strain., Rx with cardizem 3. No significant tobacco history. 4. No history of any hypercoagulable state. 5. LLE DVT 6. Markedly elevated troponin (peak 31). Out of proportion to usually seen in RV infarction. [facility] per cardiology today Plan . RECOMMENDATIONS: Continue supplemental oxygen to keep sats above 92 %, now on N/C 2 lpm abx added for increased cough, yellow sputum and infilt covid19 neg pepcid bid for stress ulcer prophylaxis S/P systemic TPA with sig improvement of hypoxia .On Heparin drip. Repeat CTA chest, reviewed. much improved saddle emboli from central PA Follow cardiology recommendations-- continued management of AFIB- now rate controlled cath today ECHO revied EF 50% BLE DPLX positive for LLE DVT NEBS A/C -- heparin gtt . Can start Eliquis post cath hypercoagulable panel as an outpatient. 3-6 months of AC D/W RN, pt MARGE GLOVER MD Dec 25, 2019 09:48
[2019-12-25] MEDS ORDERED: MIDAZOLAM HCL/PF 5 MG/5 ML VIAL. ONE (10:17)
[2019-12-25] MEDS ORDERED: fentaNYL PF VIAL 100 MCG/2 ML VIAL ONE (10:17)
[2019-12-25] MEDS ORDERED: HEPARIN for IV BOLUS 10,000 UNIT/10 ML VIAL. ONE (10:18)
[2019-12-25] MEDS ORDERED: VERAPAMIL 5 MG/2 ML VIAL. ONE (10:18)
[2019-12-25] MEDS ORDERED: NITROGLYCERIN 200 MCG/2 ML SYRINGE FOR CATH/VASC LAB. ONE (10:18)
[2019-12-25] MEDS ORDERED: IOHEXOL 300 MG/ML 100ML VIAL. ONE (10:21)
[2019-12-25] MEDS ORDERED: LIDOCAINE 1% PF 2 ML VIAL. ONE (10:21)
--- NOTE | 2019-12-25 10:50 | PDOC ---
MODERATE SEDATION ASSESSMENT RISKS/ALTERNATIVES Risks/Alternatives Risks and alternatives of this type of sedation and procedure discussed with: RISK/ALTERNATIVES: Patient H & P ON CHART H & P H & P on chart and reviewed for co-morbid conditions and appropriate labs. H&P ON CHART: Yes STATUS PREG STATUS ASSESSED: N/A MEDS/ALLERGIES REVIEWED Meds/Allergies Reviewed Medications and Allergies including time and route of recently administered narcotics and sedatives. MEDS/ALLERGIES REVIEWED: Yes ASA RATING ASA RATING: III AIRWAY ASSESSMENT Airway Assessment Airway patency, oral function limitations, presence of caps, crowns, dentures, partials, and ability to extend neck assessed. AIRWAY ASSESSMENT: Yes MALLAMPATI SCORE MALLAMPATI SCORE: II PRE-SEDATION ASSESSMENT PRE-SEDATION ASSESSMENT: Yes MANUEL WHIPPLE MD Dec 25, 2019 10:50
[2019-12-25] MEDS ORDERED: NITROGLYCERIN 200 MCG/2 ML SYRINGE FOR CATH/VASC LAB. IART ONE (11:00)
[2019-12-25] MEDS ORDERED: fentaNYL PF VIAL 100 MCG/2 ML VIAL IV ONE (11:00)
[2019-12-25] MEDS ORDERED: VERAPAMIL 5 MG/2 ML VIAL. IART ONE (11:00)
[2019-12-25] MEDS ORDERED: LIDOCAINE 1% PF 2 ML VIAL. INJ ONE (11:00)
[2019-12-25] MEDS ORDERED: IOHEXOL 300 MG/ML 100ML VIAL. IART ONE (11:00)
[2019-12-25] MEDS ORDERED: HEPARIN for IV BOLUS 10,000 UNIT/10 ML VIAL. IART ONE (11:00)
[2019-12-25] MEDS ORDERED: MIDAZOLAM HCL/PF 5 MG/5 ML VIAL. IV ONE (11:00)
--- NOTE | 2019-12-25 11:47 | PDOC ---
[employer] PROGRESS NOTE Date of Service DOS: DATE: 12/25/19 TIME: 11:34 Chief Complaint Chief Complaint impression Acute hypoxic respiratory failure with worsening hypoxia secondary to saddle pulmonary embolism Markedly increased troponin level secondary to severe right ventricular inf arction and ischemia Atrial fibrillation with rapid ventricular response induced by PE moderate tricuspid regurgitation with an estimated PAP of 71 mmHg. c/w severe pulm hypertension Hypertension Hyperlipidemia Lumbar radiculopathy with significant decreased mobility with recent nontraumatic fall Hypothyroidism Microcytic anemia History of Present Illness History of Present Illness 12/25/2019 Patient seen and examined Resting with NAD Awaiting Cardiac Vision Specialist to r/o Coronary Artery Disease If negative cath, hope to change anticoagulant to PO Discussed with RN Reviewed chart. 12/23/2019 Patient seen and examined She just completed another repeat angiography of her chest I reviewed the films the saddle emboli seems to have resolved quite a bit by my eye (awaiting official report from radiologist) Discussed with RN Chart reviewed 12/22/2019 Patient seen and examined in ICU Patient is off BiPAP and down to 5L O2 per NC She received tPA yesterday, now on heparin drip COVID negative Discussed with RN Chart reviewed 12/21/19 Patient seen and examined in the ICU Hypoxia is worsening and she is requiring 100% oxygen on BiPAP Troponin increased to 31, she has begun tPA per Dr. Buckley Echo this AM showed normal LV wall motion, EF 50%, RV dilation secondary to tricuspid regurgitation Awaiting COVID results Discussed with RN Chart reviewed Vitals/I&O Vitals/I&O: Vital Signs Date Time Temp Pulse Resp B/P (MAP) Pulse Ox O2 Delivery O2 Flow Rate FiO2 12/25/19 11:11 22 98 Nasal Cannula 2.0 12/25/19 11:11 111 116/67 12/25/19 07:00 97.4 97.4 I & O 12/24/19 12/24/19 12/25/19 15:00 23:00 07:00 Intake Total 300 ml 256 ml Output Total 800 ml 1275 ml Balance -500 ml -1019 ml Physical Exam General: Alert, Oriented X3, Cooperative, No acute distress Heart: Regular rate, Other (AFIB RVR) Lungs: Clear Abdomen: Normal bowel sounds, Soft, No tenderness Extremities: No clubbing, No cyanosis Skin: No rashes, No breakdown, No significant lesion Labs Labs: Laboratory Tests Test 12/24/19 12:20 12/24/19 18:30 12/25/19 04:45 Heparin Anti-Xa Act, Unfractionated 0.67 IU/mL (0.30-0.70) 0.65 IU/mL (0.30-0.70) 0.47 IU/mL (0.30-0.70) White Blood Count 7.3 x10^3/uL (4.0-11.0) Red Blood Count 3.82 x10^6/uL (3.50-5.40) Hemoglobin 7.9 g/dL (12.0-15.5) Hematocrit 25.7 % (36.0-47.0) Mean Corpuscular Volume 67 fL (79-100) Mean Corpuscular Hemoglobin 21 pg (25-35) Mean Corpuscular Hemoglobin Concent 31 g/dL (31-37) Red Cell Distribution Width 23.2 % (11.5-14.5) Platelet Count 423 x10^3/uL (140-400) Neutrophils (%) (Auto) 69 % (31-73) Lymphocytes (%) (Auto) 19 % (24-48) Monocytes (%) (Auto) 7 % (0-9) Eosinophils (%) (Auto) 4 % (0-3) Basophils (%) (Auto) 1 % (0-3) Neutrophils # (Auto) 5.0 x10^3/uL (1.8-7.7) Lymphocytes # (Auto) 1.4 x10^3/uL (1.0-4.8) Monocytes # (Auto) 0.5 x10^3/uL (0.0-1.1) Eosinophils # (Auto) 0.3 x10^3/uL (0.0-0.7) Basophils # (Auto) 0.1 x10^3/uL (0.0-0.2) Sodium Level 140 mmol/L (136-145) Potassium Level 4.2 mmol/L (3.5-5.1) Chloride Level 105 mmol/L (98-107) Carbon Dioxide Level 30 mmol/L (21-32) Anion Gap 5 (6-14) Blood Urea Nitrogen 9 mg/dL (7-20) Creatinine 0.7 mg/dL (0.6-1.0) Estimated GFR (Cockcroft-Gault) 82.7 Glucose Level 107 mg/dL (70-99) Calcium Level 8.4 mg/dL (8.5-10.1) Review of Systems Review of Systems: denies pain denies weakness Assessment and Plan Assessmemt and Plan Problems Medical Problems: (1) Atrial fibrillation with RVR Status: Acute (2) Chest pain Status: Acute (3) Saddle embolism of pulmonary artery Status: Acute (4) Suspected COVID-19 virus infection Status: Acute Assessment Acute hypoxic respiratory failure with worsening hypoxia secondary to saddle pulmonary embolism Markedly increased troponin level secondary to severe right ventricular infarction and ischemia Atrial fibrillation with rapid ventricular response induced by PE Hypertension Hyperlipidemia Lumbar radiculopathy with significant decreased mobility with recent nontraumatic fall Hypothyroidism Microcytic anemia Plan Continue Heparin protocol Awaiting CT angiogram result - if negative, switch to anticoagulant PO Oxygen supplementation Cardiac monitoring Trend hemoglobin Monitor ABGs Home meds Full code COVID Negative Discharge disposition pending Comment Review of Relevant I have reviewed the following items winifred (where applicable) has been applied. Medications: Current Medications Medications (Trade) Dose Ordered Sig/Danuta Route PRN Reason Start Time Stop Time Status Last Admin Dose Admin Lactobacillus Rhamnosus (Culturelle) 1 cap BID PO 12/24/19 21:00 12/24/19 21:14 Potassium Chloride (Klor-Con) 60 meq 1X ONCE PO 12/24/19 15:00 12/24/19 15:01 DC 12/24/19 14:52 Nitroglycerin (Nitroglycerin) 200 mcg 1X ONCE IART 12/25/19 11:00 12/25/19 11:03 DC 12/25/19 11:10 Verapamil HCl (Verapamil) 2.5 mg 1X ONCE IART 12/25/19 11:00 12/25/19 11:03 DC 12/25/19 11:11 Heparin Sodium (Porcine) (Heparin Sodium) 2,500 unit 1X ONCE IART 12/25/19 11:00 12/25/19 11:03 DC 12/25/19 11:12 Heparin Sodium/ Sodium Chloride (HEPARIN for ARTERIAL LINE FLUSH) 1,000 unit 1X ONCE IART 12/25/19 11:00 12/25/19 11:03 DC 12/25/19 11:09 Midazolam HCl (Versed) 5 mg 1X ONCE IV 12/25/19 11:00 12/25/19 11:03 DC 12/25/19 11:12 Fentanyl Citrate (Fentanyl 2ml Vial) 100 mcg 1X ONCE IV 12/25/19 11:00 12/25/19 11:03 DC 12/25/19 11:11 Iohexol (Omnipaque 300 Mg/ml) 100 ml 1X ONCE IART 12/25/19 11:00 12/25/19 11:03 DC 12/25/19 11:10 Lidocaine HCl (Xylocaine-Mpf 1% 2ml Vial) 2 ml 1X ONCE INJ 12/25/19 11:00 12/25/19 11:03 DC 12/25/19 11:10 Justicifation of Admission Dx: Justifications for Admission: Justification of Admission Dx: Yes TOO DARNELL III DO Dec 25, 2019 11:47
--- NOTE | 2019-12-25 12:09 | CARD ---
MR#: [id number] Date of Study: 12/25/2019 Ordering Physician: MANUEL CHANEY, Referring Physician: MANUEL CHANEY, Tech: RT Spencer (R) APPROVED REPORT Technologist: RT Spencer (R) MIGNON Nurse: Irene Gomez R.N. Procedure(s) performed: Left heart catheterization, selective coronary angiography and left ventricul ography via right transradial approach FLUORO TIME: 2.4 MIN DOSE:36 Gycm2 CONTRAST:97 ML MODERATE SEDATION: 25 MIN INDICATION The indication(s) include : non-STEMI . CS Clinical Frailty Scale [facility] Clinical Frailty Scale: Mildly Frail Heart Failure Heart Failure: No If Yes, Newly Diagnosed: No PROCEDURE NARRATIVE After explaining the risks, benefits and alternative options, informed consent was obtained from barbara ent. Patient was brought to the cardiac Autistic Teacher and right wrist was prepped and draped in the usual fashion after confirming a positive modified Rocael's test. Arterial access was obtained in the righ t radial artery and a 6 Irish sheath was inserted. 6 Irish Kulwinder catheter was used to perform francoise ective angiography of the left and right coronary arteries. 6 Irish pigtail catheter was used to pe rform left ventriculography. Patient tolerated the procedure well. Hemostasis was achieved using TR band. There were no immediate complications. The following findings were noted. FINDINGS 1. Hemodynamics: Elevated left ventricular end-diastolic pressure of 31 mmHg consistent with acute d iastolic heart failure. No pullback gradient across the aortic valve. 2. Left ventriculography: Inferoapical wall hypokinesis with ejection fraction estimated at 55%. N o significant mitral regurgitation seen. 3. Coronary angiography: a. The left main coronary artery arose from the left sinus of Valsalva, gave rise to the left anteri or descending and left circumflex arteries and did not show any significant stenosis. b. The left anterior descending artery did not show any significant stenosis. c. The left circumflex artery did not show any significant stenosis. d. The right coronary artery was a large and dominant vessel arising from the right sinus of Valsalv a that showed small amount of thrombus resulting in 80% stenosis severity in distal segment of waist fitter ior descending branch. Conclusion 1. Small amount of thrombus with 80% luminal obstruction in distal segment of posterior descending b ranch of right coronary artery. No lesions needing intervention were noted. 2. Inferoapical wall hypokinesis with ejection fraction estimated at 55% Recommendations Medical Therapy Signed by : Manuel Chaney, Electronically Approved : 12/25/2019 12:09:08
[2019-12-25] MEDS ORDERED: NITROGLYCERIN SUBLINGUAL 0.4 MG BOTTLE OF 25. SL PRN (12:30)
[2019-12-25] MEDS: cefTRIAXone IV Push 1 GM VIAL. IVP SCH (13:07)
[2019-12-25] MEDS: IV 1/2 NORMAL SALINE 1,000 ML IV SCH (13:07)
[2019-12-25] MEDS: APIXABAN 5 MG TABLET. PO SCH ×2 (13:08→22:45)
[2019-12-25] MEDS: NEXIUM PO SCH (13:09)
[2019-12-25] MEDS: ANTI-COAG MONITOR BY PHARMACY. MC PRN (13:54)
--- NOTE | 2019-12-25 15:23 | NUR ---
SS following up with discharge planning. SS reviewed pt chart and discussed with pt RN. Pt currently requiring oxygen. Pt on IV Rocephin. Pt had heart cath today. SS will continue to follow for discharge planning.
[2019-12-25] MEDS ORDERED: AMIODARONE 150 MG in IV DEXTROSE 5% 100ML 100 ML IV ONE (18:15)
[2019-12-25] MEDS ORDERED: DIGOXIN IV 500 MCG/2 ML AMPUL. IV ONE (18:15)
[2019-12-25] MEDS ORDERED: AMIODARONE 450 MG in IV DEXTROSE 5% 250 ML IV ONE (18:15)
[2019-12-25] MEDS ORDERED: SENNOSIDES/DOCUSATE 8.6/50MG TABLET. PO PRN (19:15)
[2019-12-25] MEDS ORDERED: MAGNESIUM HYDROXIDE 2,400 MG/30 ML ORAL.SUSP. PO PRN (19:30)
--- NOTE | 2019-12-25 19:59 | NUR ---
Patients HR 140's-160's. MD Shiv notified new orders recieved.
[2019-12-25] MEDS: POLYETHYLENE GLYCOL 3350 17 GM PACKET. PO SCH (22:45)
[2019-12-25] MEDS: ALPRAZolam 0.25 MG TABLET PO PRN (22:45)
[2019-12-25] MEDS: PSYLLIUM HUSK (SUGAR FREE) 1 PKT PACKET PO SCH (22:45)
[2019-12-26] VITALS (13 sets, daily range): BP systolic 129–159; BP diastolic 63–89
[2019-12-26] MEDS: IPRATROPIUM/ALBUTEROL 20/100mcg/INH INHALER. INH SCH ×5 (01:25→22:06)
[2019-12-26] MEDS ORDERED: AMIODARONE 450 MG in IV DEXTROSE 5% 250 ML IV ONE (04:00)
--- NOTE | 2019-12-26 04:04 | NUR ---
pt on 3 liters of oxygen, she desats to 80% while awake and more at night. started at 1 liter. also a mouth breathier. states she has asthma real bad, lcrn
[2019-12-26] MEDS: LEVOTHYROXINE 125 MCG TABLET PO SCH (06:08)
[2019-12-26] MEDS: IV 1/2 NORMAL SALINE 1,000 ML IV SCH ×2 (06:10→21:42)
[2019-12-26 06:20] LABS: BASO # 0.1 x10^3/uL (0.0-0.2); BASO % 1 % (0-3); EOS # 0.3 x10^3/uL (0.0-0.7); EOS % 5 % (0-3); HEMATOCRIT 26.3 % (36.0-47.0); HEMOGLOBIN 8.4 g/dL (12.0-15.5); LYMPH # 1.2 x10^3/uL (1.0-4.8); LYMPH % 18 % (24-48); MEAN CORPUSCULAR HEMOGLOBIN 22 pg (25-35); MEAN CORPUSCULAR HGB CONC 32 g/dL (31-37); MEAN CORPUSCULAR VOLUME 67 fL (79-100); MONO # 0.5 x10^3/uL (0.0-1.1); MONO % 8 % (0-9); NEUT # 4.6 x10^3/uL (1.8-7.7); NEUT % 69 % (31-73); PLATELET COUNT 442 x10^3/uL (140-400); RED BLOOD COUNT 3.92 x10^6/uL (3.50-5.40); RED CELL DISTRIBUTION WIDTH 22.8 % (11.5-14.5); WHITE BLOOD COUNT 6.8 x10^3/uL (4.0-11.0)
[2019-12-26 06:42] LABS: CALCIUM 9.2 mg/dL (8.5-10.1); CREATININE 0.7 mg/dL (0.6-1.0); GFR 82.7
[2019-12-26] MEDS: BUDESONIDE 0.5 MG/2 ML NEBU. NEB SCH ×2 (08:19→19:33)
[2019-12-26] MEDS: POLYETHYLENE GLYCOL 3350 17 GM PACKET. PO SCH ×2 (08:31→09:00)
[2019-12-26] MEDS: LACTOBACILLUS RHAMNOSUS GG 1 CAPSULE. PO SCH ×2 (08:32→22:06)
[2019-12-26] MEDS: NEXIUM PO SCH (08:32)
[2019-12-26] MEDS: CYCLOBENZAPRINE 10 MG TABLET. PO SCH ×3 (08:32→22:06)
[2019-12-26] MEDS: FAMOTIDINE 20 MG TABLET. PO SCH ×2 (08:32→22:05)
[2019-12-26] MEDS: APIXABAN 5 MG TABLET. PO SCH ×2 (08:33→22:06)
[2019-12-26] MEDS ORDERED: 0.9 % SODIUM CHLORIDE 10 ML DISP.SYRIN. IV PRN (08:45)
[2019-12-26] MEDS ORDERED: LIDOCAINE 2% TOPICAL JELLY 30GM TUBE. TP ONE (08:45)
[2019-12-26] MEDS ORDERED: BENZOCAINE ONE 20% MUCOSAL SPRAY. MM (08:45)
[2019-12-26] MEDS ORDERED: LIDOCAINE 2% VISCOUS 15 ML SOLUTION. SWSW ONE (08:45)
[2019-12-26] MEDS ORDERED: MAGNESIUM CITRATE 296 ML SOLUTION. PO PRN (09:45)
[2019-12-26] MEDS ORDERED: PROPOFOL 10 MG/ML (20ML) VIAL. IV ONE (09:59)
[2019-12-26] MEDS ORDERED: LIDOCAINE 2% PF 5 ML VIAL. ONE (09:59)
--- NOTE | 2019-12-26 10:01 | NUR ---
SS following up with discharge planning. SS reviewed pt chart and discussed with pt RN. Pt is currently requiring oxygen. Pt on IV Rocephin. Pt had heart cath yesterday and getting cardioversion today. Pt on Amiodarone drip. SS will continue to follow for discharge planning.
--- NOTE | 2019-12-26 10:56 | EKG ---
[facility] [address] [place] [address] Test Date: 2019-12-26 Test Time: 10:54:21 Pat Name: JOSE CARL Department: Room: 210 1 Gender: F Historical Interpreter: CHELLY : 1950 Requested By: MANUEL WHIPPLE Order Number: [id number] Reading MD: Vitaliy Dixon MD Measurements Intervals [place] Rate: 94 P: 38 HI: 174 QRS: -28 QRSD: 86 T: 41 QT: 354 QTc: 448 Interpretive Statements SINUS RHYTHM CONSISTENT WITH INFERIOR INFARCT PROBABLY OLD Electronically Signed On 12-28-2019 13:45:19 CDT by Vitaliy Dixon MD
[2019-12-26] MEDS ORDERED: METOPROLOL TART IMMED RELEASE 50 MG TABLET. PO ONE (12:45)
[2019-12-26] MEDS: AMIODARONE HCL 200 MG TABLET. PO SCH (12:51)
--- NOTE | 2019-12-26 12:53 | PDOC ---
[employer] PROGRESS NOTE Date of Service DOS: DATE: 12/26/19 TIME: 12:51 Chief Complaint Chief Complaint Acute hypoxic respiratory failure with worsening hypoxia secondary to saddle pulmonary embolism Markedly increased troponin level secondary to severe right ventricular infarction and ischemia Atrial fibrillation with rapid ventricular response induced by PE moderate tricuspid regurgitation with an estimated PAP of 71 mmHg. c/w severe pulm hypertension Status post cardiac cath yesterday no new stents placed Going for defibrillation today Hypertension Hyperlipidemia Lumbar radiculopathy with significant decreased mobility with recent nontraumatic fall Hypothyroidism Microcytic anemia History of Present Illness History of Present Illness 12/26/2019 Patient seen and examined She is going for defibrillation this morning Chart reviewed Discussed with RN Discussed with case management Cardiac cath yesterday without stents 12/25/2019 Patient seen and examined Resting with NAD Awaiting Cardiac Enterprise Security Architect to r/o Coronary Artery Disease If negative cath, hope to change anticoagulant to PO Discussed with RN Reviewed chart. 12/23/2019 Patient seen and examined She just completed another repeat angiography of her chest I reviewed the films the saddle emboli seems to have resolved quite a bit by my eye (awaiting official report from radiologist) Discussed with RN Chart reviewed 12/22/2019 Patient seen and examined in ICU Patient is off BiPAP and down to 5L O2 per NC She received tPA yesterday, now on heparin drip COVID negative Discussed with RN Chart reviewed 12/21/19 Patient seen and examined in the ICU Hypoxia is worsening and she is requiring 100% oxygen on BiPAP Troponin increased to 31, she has begun tPA per Dr. Buckley Echo this AM showed normal LV wall motion, EF 50%, RV dilation secondary to tricuspid regurgitation Awaiting COVID results Discussed with RN Chart reviewed Vitals/I&O Vitals/I&O: Vital Signs Date Time Temp Pulse Resp B/P (MAP) Pulse Ox O2 Delivery O2 Flow Rate FiO2 12/26/19 11:10 97.6 92 20 144/66 97 Nasal Cannula 3.0 97.6 Simple Mask I & O 12/25/19 12/25/19 12/26/19 14:59 22:59 06:59 Intake Total 400 ml Output Total 2250 ml Balance -1850 ml Physical Exam General: Alert, Oriented X3, Cooperative, No acute distress Heart: Regular rate, Other (AFIB RVR) Lungs: Clear Abdomen: Normal bowel sounds, Soft, No tenderness Extremities: No clubbing, No cyanosis Skin: No rashes, No breakdown, No significant lesion Labs Labs: Laboratory Tests Test 12/26/19 05:42 White Blood Count 6.8 x10^3/uL (4.0-11.0) Red Blood Count 3.92 x10^6/uL (3.50-5.40) Hemoglobin 8.4 g/dL (12.0-15.5) Hematocrit 26.3 % (36.0-47.0) Mean Corpuscular Volume 67 fL (79-100) Mean Corpuscular Hemoglobin 22 pg (25-35) Mean Corpuscular Hemoglobin Concent 32 g/dL (31-37) Red Cell Distribution Width 22.8 % (11.5-14.5) Platelet Count 442 x10^3/uL (140-400) Neutrophils (%) (Auto) 69 % (31-73) Lymphocytes (%) (Auto) 18 % (24-48) Monocytes (%) (Auto) 8 % (0-9) Eosinophils (%) (Auto) 5 % (0-3) Basophils (%) (Auto) 1 % (0-3) Neutrophils # (Auto) 4.6 x10^3/uL (1.8-7.7) Lymphocytes # (Auto) 1.2 x10^3/uL (1.0-4.8) Monocytes # (Auto) 0.5 x10^3/uL (0.0-1.1) Eosinophils # (Auto) 0.3 x10^3/uL (0.0-0.7) Basophils # (Auto) 0.1 x10^3/uL (0.0-0.2) Sodium Level 139 mmol/L (136-145) Potassium Level 4.0 mmol/L (3.5-5.1) Chloride Level 103 mmol/L (98-107) Carbon Dioxide Level 28 mmol/L (21-32) Anion Gap 8 (6-14) Blood Urea Nitrogen 8 mg/dL (7-20) Creatinine 0.7 mg/dL (0.6-1.0) Estimated GFR (Cockcroft-Gault) 82.7 Glucose Level 127 mg/dL (70-99) Calcium Level 9.2 mg/dL (8.5-10.1) Assessment and Plan Assessmemt and Plan Problems Medical Problems: (1) Atrial fibrillation with RVR Status: Acute (2) Chest pain Status: Acute (3) Saddle embolism of pulmonary artery Status: Acute (4) Suspected COVID-19 virus infection Status: Acute Saddle pulmonary embolism with respiratory failure Anticoagulation Markedly increased troponin level secondary to severe right ventricular infarction and ischemia Atrial fibrillation with rapid ventricular response induced by PE moderate tricuspid regurgitation with an estimated PAP of 71 mmHg. c/w severe pulm hypertension Status post cardiac cath yesterday no new stents placed Going for defibrillation today Hypertension Hyperlipidemia Lumbar radiculopathy with significant decreased mobility with recent nontraumatic fall Hypothyroidism Microcytic anemia Plan Cardiac monitoring Await cardioversion later this morning Anticoagulation Home meds DVT prophylaxis Full code Appreciate subspecialist input Comment Review of Relevant I have reviewed the following items winifred (where applicable) has been applied. Medications: Current Medications Medications (Trade) Dose Ordered Sig/Danuta Route PRN Reason Start Time Stop Time Status Last Admin Dose Admin Apixaban (Eliquis) 10 mg BID PO 12/25/19 13:00 12/31/19 21:01 12/26/19 08:33 Non-Formulary Medication 1 ea DAILY PO 12/25/19 14:00 12/26/19 08:32 Digoxin (Lanoxin) 500 mcg 1X ONCE IV 12/25/19 18:15 12/25/19 18:20 DC 12/25/19 18:36 Amiodarone HCl 150 mg/Dextrose 103 ml @ 618 mls/hr 1X ONCE IV 12/25/19 18:15 12/25/19 18:24 DC 12/25/19 18:48 Amiodarone HCl 450 mg/Dextrose 259 ml @ 0 mls/hr 1X ONCE IV 12/25/19 18:15 12/25/19 18:20 DC 12/25/19 18:15 Polyethylene Glycol (miraLAX PACKET) 17 gm DAILY PO 12/25/19 19:30 12/25/19 22:45 Psyllium Hydrophilic Mucilloid (Metamucil Fiber Packet) 1 pkt QHS PO 12/25/19 21:00 12/25/19 22:45 Amiodarone HCl 450 mg/Dextrose 259 ml @ 17 mls/hr 1X ONCE IV 12/26/19 04:00 12/26/19 19:14 12/26/19 06:08 Lidocaine HCl (Xylocaine 2% Topical 30gm Tube) 1 ian 1X ONCE TP 12/26/19 08:45 12/26/19 08:46 DC 12/26/19 10:19 Lidocaine HCl (Viscous Lidocaine) 15 ml 1X ONCE SWSW 12/26/19 08:45 12/26/19 08:46 DC 12/26/19 10:17 Benzocaine (Hurricaine One) 2 spray 1X ONCE MM 12/26/19 08:45 12/26/19 08:46 DC 12/26/19 10:15 Justicifation of Admission Dx: Justifications for Admission: Justification of Admission Dx: Yes TOO DARNELL III DO Dec 26, 2019 12:53
[2019-12-26] MEDS: cefTRIAXone IV Push 1 GM VIAL. IVP SCH (14:15)
[2019-12-26] MEDS ORDERED: CALCIUM CARBONATE 500 MG TAB.CHEW PO PRN (16:45)
--- NOTE | 2019-12-26 19:33 | PDOC4 ---
Procedure Note Procedure: TREVOR guided cardioversion Indications: Atrial fibrillation with difficult to control RVR Complications: None Procedural Details: An informed consent was obtained from patient. TREVOR with standard tomographic images was obtained that ruled out any intracardiac thrombus. She was given IV propofol for deep sedation. 200 J of synchronized biphasic DC current was then administered with successful conversion of rhythm from atrial fibrillation to SR. She was hemodynamically stable and without any neurological deficits at the end of procedure. There were no immediate complications. Conclusions: Successful TREVOR guided cardioversion of atrial fibrillation to SR MANUEL WHIPPLE MD Dec 26, 2019 19:33
[2019-12-26] MEDS: PSYLLIUM HUSK (SUGAR FREE) 1 PKT PACKET PO SCH (22:05)
[2019-12-26] MEDS: METOPROLOL TART IMMED RELEASE 50 MG TABLET. PO SCH (22:10)
[2019-12-26] MEDS: traMADol 50 MG TABLET PO PRN (22:10)
[2019-12-27] VITALS (7 sets, daily range): BP systolic 124–153; BP diastolic 69–86
[2019-12-27] MEDS: LEVOTHYROXINE 125 MCG TABLET PO SCH (06:00)
[2019-12-27] MEDS: BUDESONIDE 0.5 MG/2 ML NEBU. NEB SCH ×2 (07:33→19:47)
[2019-12-27 07:39] LABS: BASO # 0.1 x10^3/uL (0.0-0.2); BASO % 1 % (0-3); EOS # 0.4 x10^3/uL (0.0-0.7); EOS % 5 % (0-3); HEMATOCRIT 27.2 % (36.0-47.0); HEMOGLOBIN 8.5 g/dL (12.0-15.5); LYMPH # 1.5 x10^3/uL (1.0-4.8); LYMPH % 18 % (24-48); MEAN CORPUSCULAR HEMOGLOBIN 21 pg (25-35); MEAN CORPUSCULAR HGB CONC 31 g/dL (31-37); MEAN CORPUSCULAR VOLUME 67 fL (79-100); MONO # 0.4 x10^3/uL (0.0-1.1); MONO % 5 % (0-9); NEUT # 5.9 x10^3/uL (1.8-7.7); NEUT % 72 % (31-73); PLATELET COUNT 495 x10^3/uL (140-400); RED BLOOD COUNT 4.04 x10^6/uL (3.50-5.40); RED CELL DISTRIBUTION WIDTH 22.7 % (11.5-14.5); WHITE BLOOD COUNT 8.3 x10^3/uL (4.0-11.0)
[2019-12-27 08:00] LABS: CALCIUM 9.2 mg/dL (8.5-10.1); CREATININE 0.9 mg/dL (0.6-1.0); GFR 61.9; POTASSIUM 4.1 mmol/L (3.5-5.1)
--- NOTE | 2019-12-27 08:08 | CARD ---
MR#: [id number] Date of Study: 12/26/2019 Ordering Physician: JONATHAN MEYER, Referring Physician: JONATHAN MEYER, Tech: Jannette Castillo APPROVED REPORT EXAM: Transesophageal echocardiogram with color flow Doppler and Synchronized Cardioversion. INDICATION Atrial Fibrillation Mitral Valve MV E Mean Gr.2mmHg Tricuspid Valve TR P. [id number] Peak Gr.46mmHg Reason For Test : Rule out Intracardiac Thrombus. PROCEDURE After obtaining informed consent, patient underwent transesophageal echo in the PACU. Type of Sedation : General Anesthesia Sedation was administered by Tiffanie Heath. Sedation was achieved with Propofol 130mg intravenously. Transesophageal probe was inserted and advanced into esophagus by Francisco Chaney MD. The TREVOR was performed without complications. Synchronized Cardioversion attempted: Successful Rhythm following Synchronized Cardioversion: Normal Sinus Rhythm Throughout the procedure, the blood pressure, pulse oximetry, cardiac rhythm, and rate were monitored . The patient tolerated the procedure without adverse effects. Recovery from general anesthesia was une ventful and vital signs were stable. LEFT VENTRICLE The left ventricle is normal size. There is normal left ventricular wall thickness. The left ventricu lar systolic function is normal. The ejection fraction is estimated at 50-55%. There is normal LV seg mental wall motion. RIGHT VENTRICLE The right ventricle is moderately dilated. There is normal right ventricular wall thickness. ATRIA The left atrium is mildly dilated. The right atrium is mildly dilated. There is a moderate secundum t ype atrial septal defect with bidirectional shunt. There is no thrombus noted in the left atrial appe ndage. AORTIC VALVE The aortic valve is normal in structure and function. Doppler and Color Flow revealed no significant aortic regurgitation. There is no significant aortic valvular stenosis. MITRAL VALVE The mitral valve is normal in structure and function. There is no evidence of mitral valve prolapse. There is no mitral valve stenosis with an mean gradient of 2 mmHg. Doppler and Color-flow revealed tr milla mitral regurgitation. TRICUSPID VALVE The tricuspid valve is normal in structure and function. Doppler and Color Flow revealed moderate tri cuspid regurgitation. There is no tricuspid valve stenosis. PULMONIC VALVE The pulmonic valve is not well visualized. Doppler and Color Flow revealed trace pulmonic valvular re gurgitation. There is no pulmonic valvular stenosis. GREAT VESSELS The aortic root is normal in size. PERICARDIAL EFFUSION There is no evidence of significant pericardial effusion. Critical Notification Critical Value: No <Conclusion> The left ventricular systolic function is normal. The ejection fraction is estimated at 50-55%. There is normal LV segmental wall motion. The right ventricle is moderately dilated. *There is a moderate secundum type atrial septal defect with bidirectional shunt. Doppler and Color-flow revealed trace mitral regurgitation. Doppler and Color Flow revealed moderate tricuspid regurgitation. There is no evidence of significant pericardial effusion. No intracardiac vegetation or thrombus. Patient underwent successful external cardioversion, reported separately. Signed by : Francisco Chaney, Electronically Approved : 12/27/2019 08:08:18
[2019-12-27] MEDS: POLYETHYLENE GLYCOL 3350 17 GM PACKET. PO SCH (09:00)
[2019-12-27] MEDS: FAMOTIDINE 20 MG TABLET. PO SCH ×2 (09:14→20:47)
[2019-12-27] MEDS: NEXIUM PO SCH (09:14)
[2019-12-27] MEDS: LACTOBACILLUS RHAMNOSUS GG 1 CAPSULE. PO SCH ×2 (09:15→20:47)
[2019-12-27] MEDS: AMIODARONE HCL 200 MG TABLET. PO SCH (09:15)
[2019-12-27] MEDS: APIXABAN 5 MG TABLET. PO SCH ×2 (09:15→20:47)
[2019-12-27] MEDS: IPRATROPIUM/ALBUTEROL 20/100mcg/INH INHALER. INH SCH ×4 (09:16→20:48)
[2019-12-27] MEDS: METOPROLOL TART IMMED RELEASE 50 MG TABLET. PO SCH ×2 (09:16→20:47)
[2019-12-27] MEDS: CYCLOBENZAPRINE 10 MG TABLET. PO SCH (09:16)
--- NOTE | 2019-12-27 09:22 | PDOC ---
PULMONARY PROGRESS NOTES DATE: 12/27/19 TIME: 09:18 Subjective sob is better, cough sputum better no cp Pt. is S/P systemic TPA on 12/21/2019, now on N/C oxygen, 2 lpm Vitals Vital Signs Date Time Temp Pulse Resp B/P (MAP) Pulse Ox O2 Delivery O2 Flow Rate FiO2 12/27/19 07:35 98 Nasal Cannula 3.0 12/26/19 23:00 98.0 80 140/75 (96) 98.0 12/26/19 19:00 18 ROS: No Nausea, No Chest Pain, No Abdominal Pain, No Increase Cough General: Alert, No acute distress Lungs: Clear Cardiovascular: S1, S2 Abdomen: Soft, Non-tender Neuro Exam: Alert Extremities: No Edema Skin: Warm Labs Laboratory Tests Test 12/26/19 05:42 12/27/19 04:35 White Blood Count 6.8 x10^3/uL (4.0-11.0) 8.3 x10^3/uL (4.0-11.0) Red Blood Count 3.92 x10^6/uL (3.50-5.40) 4.04 x10^6/uL (3.50-5.40) Hemoglobin 8.4 g/dL (12.0-15.5) 8.5 g/dL (12.0-15.5) Hematocrit 26.3 % (36.0-47.0) 27.2 % (36.0-47.0) Mean Corpuscular Volume 67 fL (79-100) 67 fL (79-100) Mean Corpuscular Hemoglobin 22 pg (25-35) 21 pg (25-35) Mean Corpuscular Hemoglobin Concent 32 g/dL (31-37) 31 g/dL (31-37) Red Cell Distribution Width 22.8 % (11.5-14.5) 22.7 % (11.5-14.5) Platelet Count 442 x10^3/uL (140-400) 495 x10^3/uL (140-400) Neutrophils (%) (Auto) 69 % (31-73) 72 % (31-73) Lymphocytes (%) (Auto) 18 % (24-48) 18 % (24-48) Monocytes (%) (Auto) 8 % (0-9) 5 % (0-9) Eosinophils (%) (Auto) 5 % (0-3) 5 % (0-3) Basophils (%) (Auto) 1 % (0-3) 1 % (0-3) Neutrophils # (Auto) 4.6 x10^3/uL (1.8-7.7) 5.9 x10^3/uL (1.8-7.7) Lymphocytes # (Auto) 1.2 x10^3/uL (1.0-4.8) 1.5 x10^3/uL (1.0-4.8) Monocytes # (Auto) 0.5 x10^3/uL (0.0-1.1) 0.4 x10^3/uL (0.0-1.1) Eosinophils # (Auto) 0.3 x10^3/uL (0.0-0.7) 0.4 x10^3/uL (0.0-0.7) Basophils # (Auto) 0.1 x10^3/uL (0.0-0.2) 0.1 x10^3/uL (0.0-0.2) Sodium Level 139 mmol/L (136-145) 140 mmol/L (136-145) Potassium Level 4.0 mmol/L (3.5-5.1) 4.1 mmol/L (3.5-5.1) Chloride Level 103 mmol/L (98-107) 102 mmol/L (98-107) Carbon Dioxide Level 28 mmol/L (21-32) 30 mmol/L (21-32) Anion Gap 8 (6-14) 8 (6-14) Blood Urea Nitrogen 8 mg/dL (7-20) 10 mg/dL (7-20) Creatinine 0.7 mg/dL (0.6-1.0) 0.9 mg/dL (0.6-1.0) Estimated GFR (Cockcroft-Gault) 82.7 61.9 Glucose Level 127 mg/dL (70-99) 107 mg/dL (70-99) Calcium Level 9.2 mg/dL (8.5-10.1) 9.2 mg/dL (8.5-10.1) Laboratory Tests Test 12/27/19 04:35 White Blood Count 8.3 x10^3/uL (4.0-11.0) Red Blood Count 4.04 x10^6/uL (3.50-5.40) Hemoglobin 8.5 g/dL (12.0-15.5) Hematocrit 27.2 % (36.0-47.0) Mean Corpuscular Volume 67 fL (79-100) Mean Corpuscular Hemoglobin 21 pg (25-35) Mean Corpuscular Hemoglobin Concent 31 g/dL (31-37) Red Cell Distribution Width 22.7 % (11.5-14.5) Platelet Count 495 x10^3/uL (140-400) Neutrophils (%) (Auto) 72 % (31-73) Lymphocytes (%) (Auto) 18 % (24-48) Monocytes (%) (Auto) 5 % (0-9) Eosinophils (%) (Auto) 5 % (0-3) Basophils (%) (Auto) 1 % (0-3) Neutrophils # (Auto) 5.9 x10^3/uL (1.8-7.7) Lymphocytes # (Auto) 1.5 x10^3/uL (1.0-4.8) Monocytes # (Auto) 0.4 x10^3/uL (0.0-1.1) Eosinophils # (Auto) 0.4 x10^3/uL (0.0-0.7) Basophils # (Auto) 0.1 x10^3/uL (0.0-0.2) Sodium Level 140 mmol/L (136-145) Potassium Level 4.1 mmol/L (3.5-5.1) Chloride Level 102 mmol/L (98-107) Carbon Dioxide Level 30 mmol/L (21-32) Anion Gap 8 (6-14) Blood Urea Nitrogen 10 mg/dL (7-20) Creatinine 0.9 mg/dL (0.6-1.0) Estimated GFR (Cockcroft-Gault) 61.9 Glucose Level 107 mg/dL (70-99) Calcium Level 9.2 mg/dL (8.5-10.1) Medications Active Scripts Medications Dose Route/Sig Max Daily Dose Days Date Category Cetirizine Hcl 10 Mg Tablet 1 Tab PO DAILY 12/21/19 Reported Ditropan Xl (Oxybutynin Chloride) 10 Mg Tab.er.24 10 Mg PO DAILY 01/22/16 Reported Zoloft (Sertraline Hcl) 100 Mg Tablet 100 Mg PO DAILY 01/22/16 Reported Ventolin Hfa Inhaler (Albuterol Sulfate) 18 Gm Hfa.aer.ad 2 Puff INH QID 01/22/16 Reported Advair 100-50 Diskus (Fluticasone/Salmeterol) 1 Each Disk.w.dev 1 Inh IH BID 01/22/16 Reported Xanax (Alprazolam) 0.25 Mg Tablet 0.25 Mg PO PRN Q6HRS PRN 01/22/16 Reported Cyclobenzaprine Hcl 10 Mg Tablet 10 Mg PO TID 01/22/16 Reported Levothyroxine Sodium 125 Mcg Tablet 125 Mcg PO DAILYAC 01/22/16 Reported Ranitidine Hcl 300 Mg Capsule 300 Mg PO DAILY 01/22/16 Reported Tramadol Hcl 50 Mg Tablet 50 Mg PO DAILY PRN 01/22/16 Reported Bystolic (Nebivolol) 5 Mg Tablet 5 Mg PO DAILY 01/22/16 Reported Comments cta 12/23/19 reviewed Continued presence of multiple smaller bilateral pulmonary emboli but resolution of the saddle embolus seen previously. New patchy areas of groundglass infiltrates bilaterally especially peripherally in the left upper lobe. These may reflect areas of atelectasis but recommend clinical correlation and follow-up. BLE U/S IMPRESSION: * Deep vein thrombosis seen on the left. ECHIO 12/21/2019 <Conclusion> The left ventricular systolic function is normal and the ejection fraction is within normal range. The Ejection Fraction is 50%. There is normal LV segmental wall motion. The right ventricle is moderately to severly dilated measuring 5.2 cm. Doppler and Color Flow revealed mild to moderate tricuspid regurgitation with an estimated PAP of 71 mmHg. PROCEDURE NARRATIVE After explaining the risks, benefits and alternative options, informed consent was obtained from patient. Patient was brought to the cardiac Digital Content Coordinator and right wrist was prepped and draped in the usual fashion after confirming a positive modified Rocael's test. Arterial access was obtained in the right radial artery and a 6 Lao sheath was inserted. 6 Lao Kulwinder catheter was used to perform selective angiography of the left and right coronary arteries. 6 Lao pigtail catheter was used to perform left ventriculography. Patient tolerated the procedure well. Hemostasis was achieved using TR band. There were no immediate complications. The following findings were noted. FINDINGS 1. Hemodynamics: Elevated left ventricular end-diastolic pressure of 31 mmHg consistent with acute diastolic heart failure. No pullback gradient across the aortic valve. 2. Left ventriculography: Inferoapical wall hypokinesis with ejection fraction estimated at 55%. No significant mitral regurgitation seen. 3. Coronary angiography: a. The left main coronary artery arose from the left sinus of Valsalva, gave rise to the left anterior descending and left circumflex arteries and did not show any significant stenosis. b. The left anterior descending artery did not show any significant stenosis. c. The left circumflex artery did not show any significant stenosis. d. The right coronary artery was a large and dominant vessel arising from the right sinus of Valsalva that showed small amount of thrombus resulting in 80% stenosis severity in distal segment of posterior descending branch. Conclusion 1. Small amount of thrombus with 80% luminal obstruction in distal segment of posterior descending branch of right coronary artery. No lesions needing intervention were noted. 2. Inferoapical wall hypokinesis with ejection fraction estimated at 55% Recommendations Medical Therapy Signed by : Francisco Chaney, Electronically Approved : 12/25/2019 12:09:08 Impression . IMPRESSION: 1. Acute hypoxic respiratory failure secondary to acute massive pulmonary embolism . Risk factor is likely related to recent immobility for the last 2 weeks due to her lumbar radiculopathy and also from the fall when she twisted her knee. Underlying obesity would be another risk factor. She has no known cancers. Not on any form of estrogens.-- s/p systemic TPA with sig improvement, off BIPAP, oxygenation improved. 2. Atrial fibrillation with rapid ventricular response, likely caused by right ventricular strain., Rx with cardizem. Successful TREVOR guided cardioversion of atrial fibrillation to SR 3. No significant tobacco history. 4. No history of any hypercoagulable state. 5. LLE DVT 6. Markedly elevated troponin (peak 31). Out of proportion to usually seen in RV infarction. [facility] reviewed. Likely had IA, resolved with TPA 7. Sig ASD, contributed to Right to left thrombus (IA) Plan . RECOMMENDATIONS: Continue supplemental oxygen to keep sats above 92 %, now on N/C 2 lpm dc abx covid19 neg pepcid bid for stress ulcer prophylaxis S/P systemic TPA with sig improvement of hypoxia .On Eliquis Repeat CTA chest, reviewed. much improved saddle emboli from central PA Follow cardiology recommendations-- continued management of AFIB- s/p successful cardioversion cath reviewed.Small amount of thrombus with 80% luminal obstruction in distal segment of posterior descending branch of right coronary artery. No lesions needing intervention were noted. IA improved with TPA ECHO revied EF 50% BLE DPLX positive for LLE DVT NEBS hypercoagulable panel as an outpatient. 3-6 months of AC Right heart cath as OP to assess for R-Left shunt and need for ASD closure d/w Dr Chaney and daughter Pt to f/u with me in Feb with dopplers/ CTA before D/W RN, pt MARGE GLOVER MD Dec 27, 2019 09:22
--- NOTE | 2019-12-27 09:50 | NUR ---
SS following up with discharge planning. SS reviewed pt chart and discussed with pt RN. Pt is currently requiring oxygen. PT/OT ordered. Six minute walk ordered. Pt has no home oxygen. Pt on Eliquis. SS will continue to follow for discharge planning.
[2019-12-27] MEDS: ANTI-COAG MONITOR BY PHARMACY. MC PRN (10:31)
--- NOTE | 2019-12-27 14:58 | PDOC ---
JONATHAN MEYER BALANCE WHEEL HAND FILER 12/27/19 1458: CARDIO Progress Notes Date and Time Date of Service 12/27/2019 Time of Evaluation 1045 Subjective Subjective: No Chest Pain, No shortness of breath, No Palpitations Vitals Vitals Vital Signs Date Time Temp Pulse Resp B/P (MAP) Pulse Ox O2 Delivery O2 Flow Rate FiO2 12/27/19 11:00 97.5 97 124/73 (90) 99 Nasal Cannula 2.0 97.5 12/26/19 19:00 18 Weight Weight [ ] Input and Output Intake and Output Intake and Output 12/27/19 07:00 Intake Total 1000 ml Output Total 2500 ml Balance -1500 ml Intake Oral 1000 ml Output Urine Total 2500 ml # Voids 2 Laboratory Labs Laboratory Tests Test 12/27/19 04:35 White Blood Count 8.3 x10^3/uL (4.0-11.0) Red Blood Count 4.04 x10^6/uL (3.50-5.40) Hemoglobin 8.5 g/dL (12.0-15.5) Hematocrit 27.2 % (36.0-47.0) Mean Corpuscular Volume 67 fL (79-100) Mean Corpuscular Hemoglobin 21 pg (25-35) Mean Corpuscular Hemoglobin Concent 31 g/dL (31-37) Red Cell Distribution Width 22.7 % (11.5-14.5) Platelet Count 495 x10^3/uL (140-400) Neutrophils (%) (Auto) 72 % (31-73) Lymphocytes (%) (Auto) 18 % (24-48) Monocytes (%) (Auto) 5 % (0-9) Eosinophils (%) (Auto) 5 % (0-3) Basophils (%) (Auto) 1 % (0-3) Neutrophils # (Auto) 5.9 x10^3/uL (1.8-7.7) Lymphocytes # (Auto) 1.5 x10^3/uL (1.0-4.8) Monocytes # (Auto) 0.4 x10^3/uL (0.0-1.1) Eosinophils # (Auto) 0.4 x10^3/uL (0.0-0.7) Basophils # (Auto) 0.1 x10^3/uL (0.0-0.2) Sodium Level 140 mmol/L (136-145) Potassium Level 4.1 mmol/L (3.5-5.1) Chloride Level 102 mmol/L (98-107) Carbon Dioxide Level 30 mmol/L (21-32) Anion Gap 8 (6-14) Blood Urea Nitrogen 10 mg/dL (7-20) Creatinine 0.9 mg/dL (0.6-1.0) Estimated GFR (Cockcroft-Gault) 61.9 Glucose Level 107 mg/dL (70-99) Calcium Level 9.2 mg/dL (8.5-10.1) Microbiology Micro Microbiology 12/21/19 Urine Culture - Final, Complete 12/20/19 Blood Culture - Final, Complete NO GROWTH AFTER 5 DAYS Physical Exam HEENT: Neck Supple W Full Motion Chest: Symmetric LUNGS: Other (dimnished) Heart: RRR (SR) Abdomen: Soft N/T Extremities: No Edema Neurology: alert, oriented, follow commands Assessment Assessment 1. Chest pain: due to PE, AFIB and RV ischemia 2. Saddle PE with LLE DVT: saddle resolved with tPA but still has scattered emboli 3. AFIB RVR: induced by PE. maintaining SR post CVN 4. NSTEMI:multifactorial mainly associated with PE, RV ischemia. peaked trop at 31 5. Lumbar radiculopathy with significant decreased mobility with recent nontraumatic fall 6. Hypothyroidism: TSH 5 not on goal. on home replacement defer to PCP 7. Microcytic anemia: Fe def. Hgb at 8.5 8. CAD: Small amount of thrombus with 80% luminal obstruction in distal segment of posterior descending branch of right coronary artery which likely from paradoxical emboli from ASD. No lesions needing intervention were noted. 9. ASD: moderate secundum type atrial septal defect with bidirectional shunt. Will monitor outpt and consider for closure once PE Recommendations 1. Continue eliquis. ECASA 81 mg daily, monitor H/H, PLT 2. Continue amiodarone and metoprolol. 3. Supportive care 4. Lipids is well controlled. No statin at this time. No CAD per se but rather coronary embolization from the PE associated with ASD. Justicifation of Admission Dx: Justifications for Admission: Justification of Admission Dx: Yes MANUEL WHIPPLE MD 12/27/192030: CARDIO Progress Notes Assessment Assessment Patient seen and examined. Agree with TRANSPORTATION MECHANIC's assessment and plan. s/p TREVOR guided cardioversion yesterday, maintaining SR Continue amiodarone and eliquis ASD noted on tele with bidirectional shunting RCA thrombus probably paradoxical embolization considering massive PE and significant ASD No need for optimal CAD management with statins, BB etc since no there is no definite coronary artery stenosis and NSTEMI is from paradoxical embolization as stated above We will consider outpatient evaluation for percutaneous ASD closure Follow up with our office as scheduled JONATHAN MEYER APRN Dec 27, 2019 14:58 MANUEL WHIPPLE MD Dec 27, 2019 20:31
--- NOTE | 2019-12-27 15:21 | PDOC ---
PROGRESS NOTES Date of Service: DATE: 12/27/19 TIME: 15: Chief Complaint Chief Complaint Acute hypoxic respiratory failure with worsening hypoxia secondary to saddle pulmonary embolism Markedly increased troponin level secondary to severe right ventricular infarction and ischemia Atrial fibrillation with rapid ventricular response induced by PE moderate tricuspid regurgitation with an estimated PAP of 71 mmHg. c/w severe pulm hypertension Status post cardiac cath yesterday no new stents placed Going for defibrillation today Hypertension Hyperlipidemia Lumbar radiculopathy with significant decreased mobility with recent nontraumatic fall Hypothyroidism Microcytic anemia History of Present Illness History of Present Illness 12/27/2019 No acute events reported overnight, case discussed with nursing staff patient in no acute distress no complaints during my visit 12/26/2019 Patient seen and examined She is going for defibrillation this morning Chart reviewed Discussed with RN Discussed with case management Cardiac cath yesterday without stents 12/25/2019 Patient seen and examined Resting with NAD Awaiting Cardiac Home Lending Officer to r/o Coronary Artery Disease If negative cath, hope to change anticoagulant to PO Discussed with RN Reviewed chart. 12/23/2019 Patient seen and examined She just completed another repeat angiography of her chest I reviewed the films the saddle emboli seems to have resolved quite a bit by my eye (awaiting official report from radiologist) Discussed with RN Chart reviewed 12/22/2019 Patient seen and examined in ICU Patient is off BiPAP and down to 5L O2 per NC She received tPA yesterday, now on heparin drip COVID negative Discussed with RN Chart reviewed 12/21/19 Patient seen and examined in the ICU Hypoxia is worsening and she is requiring 100% oxygen on BiPAP Troponin increased to 31, she has begun tPA per Dr. Buckley Echo this AM showed normal LV wall motion, EF 50%, RV dilation secondary to tricuspid regurgitation Awaiting COVID results Discussed with RN Chart reviewed Vitals Vitals Vital Signs Date Time Temp Pulse Resp B/P (MAP) Pulse Ox O2 Delivery O2 Flow Rate FiO2 12/27/19 11:00 97.5 97 124/73 (90) 99 Nasal Cannula 2.0 97.5 12/26/19 19:00 18 Physical Exam General: Alert, Oriented X3, Cooperative, No acute distress Heart: Regular rate, Other (AFIB RVR) Lungs: Clear Abdomen: Normal bowel sounds, Soft, No tenderness Extremities: No clubbing, No cyanosis Skin: No rashes, No breakdown, No significant lesion Labs LABS Laboratory Tests Test 12/27/19 04:35 White Blood Count 8.3 x10^3/uL (4.0-11.0) Red Blood Count 4.04 x10^6/uL (3.50-5.40) Hemoglobin 8.5 g/dL (12.0-15.5) Hematocrit 27.2 % (36.0-47.0) Mean Corpuscular Volume 67 fL (79-100) Mean Corpuscular Hemoglobin 21 pg (25-35) Mean Corpuscular Hemoglobin Concent 31 g/dL (31-37) Red Cell Distribution Width 22.7 % (11.5-14.5) Platelet Count 495 x10^3/uL (140-400) Neutrophils (%) (Auto) 72 % (31-73) Lymphocytes (%) (Auto) 18 % (24-48) Monocytes (%) (Auto) 5 % (0-9) Eosinophils (%) (Auto) 5 % (0-3) Basophils (%) (Auto) 1 % (0-3) Neutrophils # (Auto) 5.9 x10^3/uL (1.8-7.7) Lymphocytes # (Auto) 1.5 x10^3/uL (1.0-4.8) Monocytes # (Auto) 0.4 x10^3/uL (0.0-1.1) Eosinophils # (Auto) 0.4 x10^3/uL (0.0-0.7) Basophils # (Auto) 0.1 x10^3/uL (0.0-0.2) Sodium Level 140 mmol/L (136-145) Potassium Level 4.1 mmol/L (3.5-5.1) Chloride Level 102 mmol/L (98-107) Carbon Dioxide Level 30 mmol/L (21-32) Anion Gap 8 (6-14) Blood Urea Nitrogen 10 mg/dL (7-20) Creatinine 0.9 mg/dL (0.6-1.0) Estimated GFR (Cockcroft-Gault) 61.9 Glucose Level 107 mg/dL (70-99) Calcium Level 9.2 mg/dL (8.5-10.1) Assessment and Plan Assessmemt and Plan Problems Medical Problems: (1) Atrial fibrillation with RVR Status: Acute (2) Chest pain Status: Acute (3) Saddle embolism of pulmonary artery Status: Acute (4) Suspected COVID-19 virus infection Status: Acute Comment Review of Relevant I have reviewed the following items winifred (where applicable) has been applied. Labs Laboratory Tests Test 12/26/19 05:42 12/27/19 04:35 White Blood Count 6.8 x10^3/uL (4.0-11.0) 8.3 x10^3/uL (4.0-11.0) Red Blood Count 3.92 x10^6/uL (3.50-5.40) 4.04 x10^6/uL (3.50-5.40) Hemoglobin 8.4 g/dL (12.0-15.5) 8.5 g/dL (12.0-15.5) Hematocrit 26.3 % (36.0-47.0) 27.2 % (36.0-47.0) Mean Corpuscular Volume 67 fL (79-100) 67 fL (79-100) Mean Corpuscular Hemoglobin 22 pg (25-35) 21 pg (25-35) Mean Corpuscular Hemoglobin Concent 32 g/dL (31-37) 31 g/dL (31-37) Red Cell Distribution Width 22.8 % (11.5-14.5) 22.7 % (11.5-14.5) Platelet Count 442 x10^3/uL (140-400) 495 x10^3/uL (140-400) Neutrophils (%) (Auto) 69 % (31-73) 72 % (31-73) Lymphocytes (%) (Auto) 18 % (24-48) 18 % (24-48) Monocytes (%) (Auto) 8 % (0-9) 5 % (0-9) Eosinophils (%) (Auto) 5 % (0-3) 5 % (0-3) Basophils (%) (Auto) 1 % (0-3) 1 % (0-3) Neutrophils # (Auto) 4.6 x10^3/uL (1.8-7.7) 5.9 x10^3/uL (1.8-7.7) Lymphocytes # (Auto) 1.2 x10^3/uL (1.0-4.8) 1.5 x10^3/uL (1.0-4.8) Monocytes # (Auto) 0.5 x10^3/uL (0.0-1.1) 0.4 x10^3/uL (0.0-1.1) Eosinophils # (Auto) 0.3 x10^3/uL (0.0-0.7) 0.4 x10^3/uL (0.0-0.7) Basophils # (Auto) 0.1 x10^3/uL (0.0-0.2) 0.1 x10^3/uL (0.0-0.2) Sodium Level 139 mmol/L (136-145) 140 mmol/L (136-145) Potassium Level 4.0 mmol/L (3.5-5.1) 4.1 mmol/L (3.5-5.1) Chloride Level 103 mmol/L (98-107) 102 mmol/L (98-107) Carbon Dioxide Level 28 mmol/L (21-32) 30 mmol/L (21-32) Anion Gap 8 (6-14) 8 (6-14) Blood Urea Nitrogen 8 mg/dL (7-20) 10 mg/dL (7-20) Creatinine 0.7 mg/dL (0.6-1.0) 0.9 mg/dL (0.6-1.0) Estimated GFR (Cockcroft-Gault) 82.7 61.9 Glucose Level 127 mg/dL (70-99) 107 mg/dL (70-99) Calcium Level 9.2 mg/dL (8.5-10.1) 9.2 mg/dL (8.5-10.1) Laboratory Tests Test 12/27/19 04:35 White Blood Count 8.3 x10^3/uL (4.0-11.0) Red Blood Count 4.04 x10^6/uL (3.50-5.40) Hemoglobin 8.5 g/dL (12.0-15.5) Hematocrit 27.2 % (36.0-47.0) Mean Corpuscular Volume 67 fL (79-100) Mean Corpuscular Hemoglobin 21 pg (25-35) Mean Corpuscular Hemoglobin Concent 31 g/dL (31-37) Red Cell Distribution Width 22.7 % (11.5-14.5) Platelet Count 495 x10^3/uL (140-400) Neutrophils (%) (Auto) 72 % (31-73) Lymphocytes (%) (Auto) 18 % (24-48) Monocytes (%) (Auto) 5 % (0-9) Eosinophils (%) (Auto) 5 % (0-3) Basophils (%) (Auto) 1 % (0-3) Neutrophils # (Auto) 5.9 x10^3/uL (1.8-7.7) Lymphocytes # (Auto) 1.5 x10^3/uL (1.0-4.8) Monocytes # (Auto) 0.4 x10^3/uL (0.0-1.1) Eosinophils # (Auto) 0.4 x10^3/uL (0.0-0.7) Basophils # (Auto) 0.1 x10^3/uL (0.0-0.2) Sodium Level 140 mmol/L (136-145) Potassium Level 4.1 mmol/L (3.5-5.1) Chloride Level 102 mmol/L (98-107) Carbon Dioxide Level 30 mmol/L (21-32) Anion Gap 8 (6-14) Blood Urea Nitrogen 10 mg/dL (7-20) Creatinine 0.9 mg/dL (0.6-1.0) Estimated GFR (Cockcroft-Gault) 61.9 Glucose Level 107 mg/dL (70-99) Calcium Level 9.2 mg/dL (8.5-10.1) Microbiology 12/21/19 Urine Culture - Final, Complete 12/20/19 Blood Culture - Final, Complete NO GROWTH AFTER 5 DAYS Medications Current Medications Sodium Chloride 1,000 ml @ 1,000 mls/hr 1X ONCE IV Last administered on 12/20/19at 12:09; Start 12/20/19 at 11:45; Stop 12/20/19 at 12:44; Status DC Ceftriaxone Sodium (Rocephin) 1 gm 1X ONCE IVP Last administered on 12/20/19at 12:07; Start 12/20/19 at 11:45; Stop 12/20/19 at 11:47; Status DC Iohexol (Omnipaque 350 Mg/ml) 90 ml 1X ONCE IV ; Start 12/20/19 at 13:00; Stop 12/20/19 at 13:01; Status DC Metoprolol Tartrate (Lopressor Vial) 5 mg 1X ONCE IVP Last administered on 12/20/19at 13:03; Start 12/20/19 at 13:15; Stop 12/20/19 at 13:16; Status DC Heparin Sodium/ Dextrose 250 ml @ 0 mls/hr CONT PRN IV PER PROTOCOL Last administered on 12/20/19at 13:47; Start 12/20/19 at 13:30; Stop 12/20/19 at 14:19; Status DC Heparin Sodium (Porcine) (Heparin Sodium) 2,150 unit PRN Q6HRS PRN IV FOR UFH LEVEL LESS THAN 0.2 Last administered on 12/20/19at 13:45; Start 12/20/19 at 13:30; Stop 12/20/19 at 14:19; Status DC Ondansetron HCl (Zofran) 4 mg PRN Q8HRS PRN IV NAUSEA/VOMITING Last administered on 12/20/19at 17:31; Start 12/20/19 at 13:45; Stop 12/21/19 at 13:44; Status DC Heparin Sodium/ Dextrose 250 ml @ 0 mls/hr CONT PRN IV PER PROTOCOL Last administered on 12/24/19at 14:36; Start 12/20/19 at 14:15; Stop 12/25/19 at 12:31; Status DC Heparin Sodium (Porcine) (Heparin Sodium) 2,600 unit PRN Q6HRS PRN IV FOR UFH LEVEL LESS THAN 0.2; Start 12/20/19 at 14:15; Stop 12/25/19 at 12:31; Status DC Heparin Sodium (Porcine) (Heparin Sodium) 1,300 unit PRN Q6HRS PRN IV FOR UFH LEVEL 0.2 - 0.29; Start 12/20/19 at 14:15; Stop 12/25/19 at 12:31; Status DC Aspirin (Ecotrin) 325 mg 1X ONCE PO ; Start 12/20/19 at 14:45; Stop 12/20/19 at 14:46; Status DC Metoprolol Succinate (Toprol Xl) 25 mg BID PO ; Start 12/20/19 at 14:30; Stop 12/20/19 at 15:49; Status DC Metoprolol Tartrate (Lopressor Vial) 5 mg 1X ONCE IVP Last administered on 12/20/19at 14:52; Start 12/20/19 at 14:45; Stop 12/20/19 at 14:46; Status DC Metoprolol Tartrate (Lopressor Vial) 5 mg 1X ONCE IVP ; Start 12/20/19 at 14:45; Stop 12/20/19 at 14:46; Status Cancel Digoxin (Lanoxin) 500 mcg 1X ONCE IV Last administered on 12/20/19at 15:59; Start 12/20/19 at 16:15; Stop 12/20/19 at 16:16; Status DC Diltiazem HCl 125 mg/Sodium Chloride 125 ml @ 5 mls/hr CONT PRN IV SEE I/O RECORD Last administered on 12/22/19at 03:24; Start 12/20/19 at 16:00; Stop 12/22/19 at 09:15; Status DC Cyclobenzaprine HCl (Flexeril) 10 mg TID PO Last administered on 12/27/19at 09:16; Start 12/20/19 at 21:00; Stop 12/27/19 at 14:29; Status DC Levothyroxine Sodium (Synthroid) 125 mcg DAILY06 PO Last administered on 0at 06:08; Start 12/21/19 at 06:00 Tramadol HCl (Ultram) 50 mg PRN DAILY PRN PO PAIN Last administered on 12/26/19at 22:10; Start 12/20/19 at 18:45 Info (Anti-Coagulation Monitoring By Pharmacy) 1 each PRN DAILY PRN MC SEE COMMENTS Last administered on 12/27/19at 10:31; Start 12/21/19 at 08:30 Alteplase, Recombinant 100 ml @ 50 mls/hr 1X ONCE IV Last administered on 12/21/19at 09:22; Start 12/21/19 at 09:00; Stop 12/21/19 at 10:59; Status DC Alprazolam (Xanax) 0.25 mg PRN Q6HRS PRN PO ANXIETY / AGITATION Last administered on 12/25/19at 22:45; Start 12/21/19 at 15:30 Famotidine (Pepcid) 20 mg PRN BID PRN PO HEARTBURN / GAS Last administered on 12/23/19at 04:19; Start 12/21/19 at 23:15; Stop 12/23/19 at 05:29; Status DC Budesonide (Pulmicort) 0.5 mg RTBID NEB Last administered on 12/27/19at 07:33; Start 12/22/19 at 09:00 Levalbuterol HCl (Xopenex) 1.25 mg PRN Q4HRS PRN NEB SHORTNESS OF BREATH Last administered on 12/22/19at 20:05; Start 12/22/19 at 09:00; Stop 12/23/19 at 18:33; Status DC Diltiazem HCl (Cardizem 24hr Cd) 240 mg DAILY PO Last administered on 12/25/19at 08:38; Start 12/22/19 at 09:15; Stop 12/26/19 at 12:06; Status DC Famotidine (Pepcid) 20 mg BID PO Last administered on 12/27/19at 09:14; Start 12/23/19 at 09:00 Iohexol (Omnipaque 350 Mg/ml) 100 ml 1X ONCE IV Last administered on 12/23/19at 10:30; Start 12/23/19 at 08:00; Stop 12/23/19 at 08:01; Status DC Ceftriaxone Sodium (Rocephin) 1 gm Q24H IVP Last administered on 12/26/19at 14:15; Start 12/23/19 at 14:00; Stop 12/27/19 at 09:21; Status DC Albuterol/ Ipratropium (Combivent Respimat 20-100 Mcg) 1 puff RTQID INH Last administered on 12/27/19at 12:00; Start 12/23/19 at 20:00 Lactobacillus Rhamnosus (Culturelle) 1 cap BID PO Last administered on 12/27/19at 09:15; Start 12/24/19 at 21:00 Potassium Chloride (Klor-Con) 60 meq 1X ONCE PO Last administered on 12/24/19at 14:52; Start 12/24/19 at 15:00; Stop 12/24/19 at 15:01; Status DC Midazolam HCl (Versed) 5 mg STK-MED ONCE .ROUTE ; Start 12/25/19 at 10:17; Stop 8/17/20 at 10:17; Status DC Fentanyl Citrate (Fentanyl 2ml Vial) 100 mcg STK-MED ONCE .ROUTE ; Start 12/25/19 at 10:17; Stop 12/25/19 at 10:18; Status DC Verapamil HCl (Verapamil) 5 mg STK-MED ONCE .ROUTE ; Start 12/25/19 at 10:18; Stop 12/25/19 at 10:18; Status DC Heparin Sodium (Porcine) (Heparin Sodium) 10,000 unit STK-MED ONCE .ROUTE ; Start 12/25/19 at 10:18; Stop 12/25/19 at 10:18; Status DC Nitroglycerin (Nitroglycerin) 200 mcg STK-MED ONCE .ROUTE ; Start 12/25/19 at 10:18; Stop 12/25/19 at 10:18; Status DC Lidocaine HCl (Xylocaine-Mpf 1% 2ml Vial) 2 ml STK-MED ONCE .ROUTE ; Start 12/25/19 at 10:21; Stop 12/25/19 at 10:21; Status DC Iohexol (Omnipaque 300 Mg/ml) 100 ml STK-MED ONCE .ROUTE ; Start 12/25/19 at 10:21; Stop 12/25/19 at 10:22; Status DC Heparin Sodium/ Sodium Chloride 1,000 ml @ As Directed STK-MED ONCE .ROUTE ; Start 12/25/19 at 10:21; Stop 12/25/19 at 10:22; Status DC Nitroglycerin (Nitroglycerin) 200 mcg 1X ONCE IART Last administered on 12/25/19at 11:10; Start 12/25/19 at 11:00; Stop 12/25/19 at 11:03; Status DC Verapamil HCl (Verapamil) 2.5 mg 1X ONCE IART Last administered on 12/25/19at 11:11; Start 12/25/19 at 11:00; Stop 12/25/19 at 11:03; Status DC Heparin Sodium (Porcine) (Heparin Sodium) 2,500 unit 1X ONCE IART Last administered on 12/25/19at 11:12; Start 12/25/19 at 11:00; Stop 12/25/19 at 11:03; Status DC Heparin Sodium/ Sodium Chloride (HEPARIN for ARTERIAL LINE FLUSH) 1,000 unit 1X ONCE IART Last administered on 12/25/19at 11:09; Start 12/25/19 at 11:00; Stop 12/25/19 at 11:03; Status DC Midazolam HCl (Versed) 5 mg 1X ONCE IV Last administered on 12/25/19at 11:12; Start 12/25/19 at 11:00; Stop 12/25/19 at 11:03; Status DC Fentanyl Citrate (Fentanyl 2ml Vial) 100 mcg 1X ONCE IV Last administered on 12/25/19at 11:11; Start 12/25/19 at 11:00; Stop 12/25/19 at 11:03; Status DC Iohexol (Omnipaque 300 Mg/ml) 100 ml 1X ONCE IART Last administered on 12/25/19at 11:10; Start 12/25/19 at 11:00; Stop 12/25/19 at 11:03; Status DC Lidocaine HCl (Xylocaine-Mpf 1% 2ml Vial) 2 ml 1X ONCE INJ Last administered on 12/25/19at 11:10; Start 12/25/19 at 11:00; Stop 12/25/19 at 11:03; Status DC Sodium Chloride 1,000 ml @ 60 mls/hr [id number] IV Last administered on 12/26/19at 06:10; Start 12/25/19 at 12:22; Stop 12/27/19 at 14:29; Status DC Nitroglycerin (Nitrostat) 0.4 mg PRN Q5MIN PRN SL CHEST PAIN; Start 12/25/19 at 12:30 Apixaban (Eliquis) 10 mg BID PO Last administered on 12/27/19at 09:15; Start 12/25/19 at 13:00; Stop 12/31/19 at 21:01 Apixaban (Eliquis) 5 mg BID PO ; Start 01/01/20 at 09:00 Non-Formulary Medication 1 ea DAILY PO Last administered on 12/27/19at 09:14; Start 12/25/19 at 14:00 Digoxin (Lanoxin) 500 mcg 1X ONCE IV Last administered on 12/25/19at 18:36; Start 12/25/19 at 18:15; Stop 12/25/19 at 18:20; Status DC Amiodarone HCl 150 mg/Dextrose 103 ml @ 618 mls/hr 1X ONCE IV Last administered on 12/25/19at 18:48; Start 12/25/19 at 18:15; Stop 12/25/19 at 18:24; Status DC Amiodarone HCl 450 mg/Dextrose 259 ml @ 0 mls/hr 1X ONCE IV Last administered on 12/25/19at 18:15; Start 12/25/19 at 18:15; Stop 12/25/19 at 18:20; Status DC Polyethylene Glycol (miraLAX PACKET) 17 gm DAILY PO Last administered on 12/25/19at 22:45; Start 12/25/19 at 19:30 Senna/Docusate Sodium (Senna Plus) 1 tab PRN BID PRN PO CONSTIPATION; Start 12/25/19 at 19:15; Status Cancel Psyllium Hydrophilic Mucilloid (Metamucil Fiber Packet) 1 pkt QHS PO Last administered on 12/26/19at 22:05; Start 12/25/19 at 21:00 Magnesium Hydroxide (Milk Of Magnesia) 2,400 mg PRN DAILY PRN PO CONSTIPATION; Start 12/25/19 at 19:30 Amiodarone HCl 450 mg/Dextrose 259 ml @ 17 mls/hr 1X ONCE IV Last administered on 12/26/19at 06:08; Start 12/26/19 at 04:00; Stop 12/26/19 at 19:14; Status DC Sodium Chloride (Normal Saline Flush) 10 ml QSHIFT PRN IV AFTER MEDS AND BLOOD DRAWS; Start 12/26/19 at 08:45 Lidocaine HCl (Xylocaine 2% Topical 30gm Tube) 1 ian 1X ONCE TP Last administered on 12/26/19at 10:19; Start 12/26/19 at 08:45; Stop 12/26/19 at 08:46; Status DC Lidocaine HCl (Viscous Lidocaine) 15 ml 1X ONCE SWSW Last administered on 12/26/19at 10:17; Start 12/26/19 at 08:45; Stop 12/26/19 at 08:46; Status DC Benzocaine (Hurricaine One) 2 spray 1X ONCE MM Last administered on 12/26/19at 10:15; Start 12/26/19 at 08:45; Stop 12/26/19 at 08:46; Status DC Magnesium Citrate (Citroma) 296 ml PRN 1X PRN PO CONSTIPATION; Start 12/26/19 at 09:45 Propofol (Diprivan) 200 mg STK-MED ONCE IV ; Start 12/26/19 at 09:59; Stop 12/26/19 at 10:00; Status DC Lidocaine HCl (Lidocaine Pf 2% Vial) 5 ml STK-MED ONCE .ROUTE ; Start 12/26/19 at 09:59; Stop 12/26/19 at 10:00; Status DC Metoprolol Tartrate (Lopressor) 50 mg BID PO Last administered on 12/27/19at 09:16; Start 12/26/19 at 21:00 Amiodarone HCl (Cordarone) 200 mg DAILY PO Last administered on 12/27/19at 09:15; Start 12/26/19 at 12:15 Metoprolol Tartrate (Lopressor) 50 mg 1X ONCE PO Last administered on 12/26/19at 12:50; Start 12/26/19 at 12:45; Stop 12/26/19 at 12:46; Status DC Calcium Carbonate/ Glycine (Tums) 500 mg PRN AFTMEALHC PRN PO INDIGESTION Last administered on 12/26/19at 16:38; Start 12/26/19 at 16:45 Aspirin (Ecotrin) 81 mg DAILYWBKFT PO ; Start 12/28/19 at 08:00 Lidocaine HCl (Buffered Lidocaine 1%) 3 ml 1X ONCE INJ ; Start 12/27/19 at 15:30; Stop 12/27/19 at 15:31; Status UNV Active Scripts Active Reported Cetirizine Hcl 10 Mg Tablet 1 Tab PO DAILY Ditropan Xl (Oxybutynin Chloride) 10 Mg Tab.er.24 10 Mg PO DAILY Zoloft (Sertraline Hcl) 100 Mg Tablet 100 Mg PO DAILY Ventolin Hfa Inhaler (Albuterol Sulfate) 18 Gm Hfa.aer.ad 2 Puff INH QID Advair 100-50 Diskus (Fluticasone/Salmeterol) 1 Each Disk.w.dev 1 Inh IH BID Xanax (Alprazolam) 0.25 Mg Tablet 0.25 Mg PO PRN Q6HRS PRN Cyclobenzaprine Hcl 10 Mg Tablet 10 Mg PO TID Levothyroxine Sodium 125 Mcg Tablet 125 Mcg PO DAILYAC Ranitidine Hcl 300 Mg Capsule 300 Mg PO DAILY Tramadol Hcl 50 Mg Tablet 50 Mg PO DAILY PRN Bystolic (Nebivolol) 5 Mg Tablet 5 Mg PO DAILY Vitals/I & O Vital Sign - Last 24 Hours 12/26/19 12/26/19 12/26/19 12/26/19 19:00 19:35 20:00 22:10 Temp 97.8 97.8 Pulse 83 83 Resp 18 B/P (MAP) 131/70 (90) 131/70 Pulse Ox 97 96 O2 Delivery Nasal Cannula Nasal Cannula Nasal Cannula O2 Flow Rate 3.0 3.0 2.0 12/26/19 12/27/19 12/27/19 12/27/19 23:00 03:00 07:00 07:35 Temp 98.0 96.6 97.5 98.0 96.6 97.5 Pulse 80 80 75 B/P (MAP) 140/75 (96) 135/78 (97) 136/77 (96) Pulse Ox 100 99 99 98 O2 Delivery Nasal Cannula Nasal Cannula Nasal Cannula Nasal Cannula O2 Flow Rate 2.0 2.0 2.0 3.0 12/27/19 12/27/19 12/27/19 12/27/19 08:00 09:15 09:16 11:00 Temp 97.5 97.5 Pulse 82 82 97 B/P (MAP) 136/77 136/77 124/73 (90) Pulse Ox 99 O2 Delivery Nasal Cannula Nasal Cannula O2 Flow Rate 1.0 2.0 Intake and Output 12/26/19 12/26/19 12/27/19 15:00 23:00 07:00 Intake Total 1000 ml Output Total 1900 ml 600 ml Balance -1900 ml 400 ml Justicifation of Admission Dx: Justifications for Admission: Justification of Admission Dx: Yes LARON CAMACHO MD Dec 27, 2019 15:21
[2019-12-27] MEDS ORDERED: LIDOCAINE WITH 8.4% SOD BICARB 3 ML DISP.SYRIN. INJ ONE (15:30)
--- NOTE | 2019-12-27 16:28 | NUR ---
SS following up with discharge planning. PT/OT recommended [facility]. SS met with pt and pt's family in room. Pt and pt's family agreeable to [facility] and requested referrals be sent to 1) [facility], ; fax [phone], and 2) [facility], ; fax [phone]. SS phoned and faxed referrals as requested. COVID19 negative. SS will await acceptance decision and will proceed accordingly.
[2019-12-27] MEDS: PSYLLIUM HUSK (SUGAR FREE) 1 PKT PACKET PO SCH (20:48)
[2019-12-27] MEDS: ALPRAZolam 0.25 MG TABLET PO PRN (20:53)
[2019-12-28 03:00] VITALS: BP 140/80
[2019-12-28] MEDS: LEVOTHYROXINE 125 MCG TABLET PO SCH (06:26)
[2019-12-28 06:27] LABS: BASO # 0.1 x10^3/uL (0.0-0.2); BASO % 1 % (0-3); EOS # 0.4 x10^3/uL (0.0-0.7); EOS % 5 % (0-3); HEMATOCRIT 28.3 % (36.0-47.0); HEMOGLOBIN 8.9 g/dL (12.0-15.5); LYMPH # 1.6 x10^3/uL (1.0-4.8); LYMPH % 23 % (24-48); MEAN CORPUSCULAR HEMOGLOBIN 21 pg (25-35); MEAN CORPUSCULAR HGB CONC 31 g/dL (31-37); MEAN CORPUSCULAR VOLUME 67 fL (79-100); MONO # 0.5 x10^3/uL (0.0-1.1); MONO % 6 % (0-9); NEUT # 4.6 x10^3/uL (1.8-7.7); NEUT % 64 % (31-73); PLATELET COUNT 529 x10^3/uL (140-400); RED BLOOD COUNT 4.22 x10^6/uL (3.50-5.40); RED CELL DISTRIBUTION WIDTH 22.2 % (11.5-14.5); WHITE BLOOD COUNT 7.2 x10^3/uL (4.0-11.0)
[2019-12-28 07:00] VITALS: BP 165/80
[2019-12-28 07:06] LABS: CALCIUM 9.2 mg/dL (8.5-10.1); CREATININE 0.8 mg/dL (0.6-1.0); GFR 70.9; POTASSIUM 4.1 mmol/L (3.5-5.1)
[2019-12-28] MEDS: BUDESONIDE 0.5 MG/2 ML NEBU. NEB SCH (07:37)
[2019-12-28] MEDS ORDERED: ASPIRIN ENTERIC COATED 81 MG TABLET.DR. PO SCH (08:00)
[2019-12-28] MEDS: NEXIUM PO SCH (09:00)
[2019-12-28] MEDS: POLYETHYLENE GLYCOL 3350 17 GM PACKET. PO SCH (09:00)
[2019-12-28] MEDS: IPRATROPIUM/ALBUTEROL 20/100mcg/INH INHALER. INH SCH ×2 (09:55→12:00)
[2019-12-28] MEDS: APIXABAN 5 MG TABLET. PO SCH (10:07)
[2019-12-28] MEDS: METOPROLOL TART IMMED RELEASE 50 MG TABLET. PO SCH (10:07)
[2019-12-28] MEDS: LACTOBACILLUS RHAMNOSUS GG 1 CAPSULE. PO SCH (10:07)
[2019-12-28] MEDS: FAMOTIDINE 20 MG TABLET. PO SCH (10:07)
--- NOTE | 2019-12-28 10:07 | PDOC ---
PULMONARY PROGRESS NOTES DATE: 12/28/19 TIME: 10:04 Subjective Feeling much better, NO SOB, or Cough Pt. is S/P systemic TPA on 12/21/2019, now on N/C oxygen, 2 lpm Vitals Vital Signs Date Time Temp Pulse Resp B/P (MAP) Pulse Ox O2 Delivery O2 Flow Rate FiO2 12/28/19 07:38 83 Room Air 12/28/19 03:00 98.1 74 18 140/80 (100) 2.0 98.1 ROS: No Nausea, No Chest Pain, No Abdominal Pain, No Increase Cough General: Alert, No acute distress Lungs: Clear Cardiovascular: S1, S2 Abdomen: Soft, Non-tender Neuro Exam: Alert Extremities: No Edema Skin: Warm Labs Laboratory Tests Test 12/27/19 04:35 12/28/19 05:56 White Blood Count 8.3 x10^3/uL (4.0-11.0) 7.2 x10^3/uL (4.0-11.0) Red Blood Count 4.04 x10^6/uL (3.50-5.40) 4.22 x10^6/uL (3.50-5.40) Hemoglobin 8.5 g/dL (12.0-15.5) 8.9 g/dL (12.0-15.5) Hematocrit 27.2 % (36.0-47.0) 28.3 % (36.0-47.0) Mean Corpuscular Volume 67 fL (79-100) 67 fL (79-100) Mean Corpuscular Hemoglobin 21 pg (25-35) 21 pg (25-35) Mean Corpuscular Hemoglobin Concent 31 g/dL (31-37) 31 g/dL (31-37) Red Cell Distribution Width 22.7 % (11.5-14.5) 22.2 % (11.5-14.5) Platelet Count 495 x10^3/uL (140-400) 529 x10^3/uL (140-400) Neutrophils (%) (Auto) 72 % (31-73) 64 % (31-73) Lymphocytes (%) (Auto) 18 % (24-48) 23 % (24-48) Monocytes (%) (Auto) 5 % (0-9) 6 % (0-9) Eosinophils (%) (Auto) 5 % (0-3) 5 % (0-3) Basophils (%) (Auto) 1 % (0-3) 1 % (0-3) Neutrophils # (Auto) 5.9 x10^3/uL (1.8-7.7) 4.6 x10^3/uL (1.8-7.7) Lymphocytes # (Auto) 1.5 x10^3/uL (1.0-4.8) 1.6 x10^3/uL (1.0-4.8) Monocytes # (Auto) 0.4 x10^3/uL (0.0-1.1) 0.5 x10^3/uL (0.0-1.1) Eosinophils # (Auto) 0.4 x10^3/uL (0.0-0.7) 0.4 x10^3/uL (0.0-0.7) Basophils # (Auto) 0.1 x10^3/uL (0.0-0.2) 0.1 x10^3/uL (0.0-0.2) Sodium Level 140 mmol/L (136-145) 140 mmol/L (136-145) Potassium Level 4.1 mmol/L (3.5-5.1) 4.1 mmol/L (3.5-5.1) Chloride Level 102 mmol/L (98-107) 102 mmol/L (98-107) Carbon Dioxide Level 30 mmol/L (21-32) 33 mmol/L (21-32) Anion Gap 8 (6-14) 5 (6-14) Blood Urea Nitrogen 10 mg/dL (7-20) 12 mg/dL (7-20) Creatinine 0.9 mg/dL (0.6-1.0) 0.8 mg/dL (0.6-1.0) Estimated GFR (Cockcroft-Gault) 61.9 70.9 Glucose Level 107 mg/dL (70-99) 108 mg/dL (70-99) Calcium Level 9.2 mg/dL (8.5-10.1) 9.2 mg/dL (8.5-10.1) Laboratory Tests Test 12/28/19 05:56 White Blood Count 7.2 x10^3/uL (4.0-11.0) Red Blood Count 4.22 x10^6/uL (3.50-5.40) Hemoglobin 8.9 g/dL (12.0-15.5) Hematocrit 28.3 % (36.0-47.0) Mean Corpuscular Volume 67 fL (79-100) Mean Corpuscular Hemoglobin 21 pg (25-35) Mean Corpuscular Hemoglobin Concent 31 g/dL (31-37) Red Cell Distribution Width 22.2 % (11.5-14.5) Platelet Count 529 x10^3/uL (140-400) Neutrophils (%) (Auto) 64 % (31-73) Lymphocytes (%) (Auto) 23 % (24-48) Monocytes (%) (Auto) 6 % (0-9) Eosinophils (%) (Auto) 5 % (0-3) Basophils (%) (Auto) 1 % (0-3) Neutrophils # (Auto) 4.6 x10^3/uL (1.8-7.7) Lymphocytes # (Auto) 1.6 x10^3/uL (1.0-4.8) Monocytes # (Auto) 0.5 x10^3/uL (0.0-1.1) Eosinophils # (Auto) 0.4 x10^3/uL (0.0-0.7) Basophils # (Auto) 0.1 x10^3/uL (0.0-0.2) Sodium Level 140 mmol/L (136-145) Potassium Level 4.1 mmol/L (3.5-5.1) Chloride Level 102 mmol/L (98-107) Carbon Dioxide Level 33 mmol/L (21-32) Anion Gap 5 (6-14) Blood Urea Nitrogen 12 mg/dL (7-20) Creatinine 0.8 mg/dL (0.6-1.0) Estimated GFR (Cockcroft-Gault) 70.9 Glucose Level 108 mg/dL (70-99) Calcium Level 9.2 mg/dL (8.5-10.1) Medications Active Scripts Medications Dose Route/Sig Max Daily Dose Days Date Category Cetirizine Hcl 10 Mg Tablet 1 Tab PO DAILY 12/21/19 Reported Ditropan Xl (Oxybutynin Chloride) 10 Mg Tab.er.24 10 Mg PO DAILY 01/22/16 Reported Zoloft (Sertraline Hcl) 100 Mg Tablet 100 Mg PO DAILY 01/22/16 Reported Ventolin Hfa Inhaler (Albuterol Sulfate) 18 Gm Hfa.aer.ad 2 Puff INH QID 01/22/16 Reported Advair 100-50 Diskus (Fluticasone/Salmeterol) 1 Each Disk.w.dev 1 Inh IH BID 01/22/16 Reported Xanax (Alprazolam) 0.25 Mg Tablet 0.25 Mg PO PRN Q6HRS PRN 01/22/16 Reported Cyclobenzaprine Hcl 10 Mg Tablet 10 Mg PO TID 01/22/16 Reported Levothyroxine Sodium 125 Mcg Tablet 125 Mcg PO DAILYAC 01/22/16 Reported Ranitidine Hcl 300 Mg Capsule 300 Mg PO DAILY 01/22/16 Reported Tramadol Hcl 50 Mg Tablet 50 Mg PO DAILY PRN 01/22/16 Reported Bystolic (Nebivolol) 5 Mg Tablet 5 Mg PO DAILY 01/22/16 Reported Comments cta 12/23/19 reviewed Continued presence of multiple smaller bilateral pulmonary emboli but resolution of the saddle embolus seen previously. New patchy areas of groundglass infiltrates bilaterally especially peripherally in the left upper lobe. These may reflect areas of atelectasis but recommend clinical correlation and follow-up. BLE U/S IMPRESSION: * Deep vein thrombosis seen on the left. ECHIO 12/21/2019 <Conclusion> The left ventricular systolic function is normal and the ejection fraction is within normal range. The Ejection Fraction is 50%. There is normal LV segmental wall motion. The right ventricle is moderately to severly dilated measuring 5.2 cm. Doppler and Color Flow revealed mild to moderate tricuspid regurgitation with an estimated PAP of 71 mmHg. PROCEDURE NARRATIVE After explaining the risks, benefits and alternative options, informed consent was obtained from patient. Patient was brought to the cardiac Digital Marketer and right wrist was prepped and draped in the usual fashion after confirming a positive modified Rocael's test. Arterial access was obtained in the right radia l artery and a 6 German sheath was inserted. 6 German Kulwinder catheter was used to perform selective angiography of the left and right coronary arteries. 6 German pigtail catheter was used to perform left ventriculography. Patient tolerated the procedure well. Hemostasis was achieved using TR band. There were no immediate complications. The following findings were noted. FINDINGS 1. Hemodynamics: Elevated left ventricular end-diastolic pressure of 31 mmHg consistent with acute diastolic heart failure. No pullback gradient across the aortic valve. 2. Left ventriculography: Inferoapical wall hypokinesis with ejection fraction estimated at 55%. No significant mitral regurgitation seen. 3. Coronary angiography: a. The left main coronary artery arose from the left sinus of Valsalva, gave rise to the left anterior descending and left circumflex arteries and did not show any significant stenosis. b. The left anterior descending artery did not show any significant stenosis. c. The left circumflex artery did not show any significant stenosis. d. The right coronary artery was a large and dominant vessel arising from the right sinus of Valsalva that showed small amount of thrombus resulting in 80% stenosis severity in distal segment of posterior descending branch. Conclusion 1. Small amount of thrombus with 80% luminal obstruction in distal segment of posterior descending branch of right coronary artery. No lesions needing intervention were noted. 2. Inferoapical wall hypokinesis with ejection fraction estimated at 55% Recommendations Medical Therapy Signed by : Francisco Chaney, Electronically Approved : 12/25/2019 12:09:08 Impression . IMPRESSION: 1. Acute hypoxic respiratory failure secondary to acute massive pulmonary embolism . Risk factor is likely related to recent immobility for the last 2 weeks due to her lumbar radiculopathy and also from the fall when she twisted her knee. Underlying obesity would be another risk factor. She has no known cancers. Not on any form of estrogens.-- s/p systemic TPA with sig improvement, off BIPAP, oxygenation improved. 2. Atrial fibrillation with rapid ventricular response, likely caused by right ventricular strain., Rx with cardizem. Successful TREVOR guided cardioversion of atrial fibrillation to SR-- now on po amio 3. No significant tobacco history. 4. No history of any hypercoagulable state. 5. LLE DVT 6. Markedly elevated troponin (peak 31). Out of proportion to usually seen in RV infarction. C reviewed. Likely had TN, resolved with TPA 7. Sig ASD, contributed to Right to left thrombus (TN) Plan . RECOMMENDATIONS: Continue supplemental oxygen to keep sats above 92 %, now on N/C 2 lpm covid19 neg S/P systemic TPA with sig improvement of hypoxia now on On Eliquis Repeat CTA chest, reviewed. much improved saddle emboli from central PA Follow cardiology recommendations-- continued management of AFIB- s/p successful cardioversion cath reviewed.Small amount of thrombus with 80% luminal obstruction in distal segment of posterior descending branch of right coronary artery. No lesions needing intervention were noted. TN improved with TPA ECHO revied EF 50% BLE DPLX positive for LLE DVT NEBS hypercoagulable panel as an outpatient. 3-6 months of AC Right heart cath as OP to assess for R-Left shunt and need for ASD closure-- per cardiology PT/OT-- plan to D/C to rehab with oxygen DVT/GI PPX D/W RN MARGE GLOVER MD Dec 28, 2019 10:07
[2019-12-28] MEDS: AMIODARONE HCL 200 MG TABLET. PO SCH (10:08)
[2019-12-28 11:00] VITALS: BP 132/70
--- NOTE | 2019-12-28 11:45 | NUR ---
SS following up with discharge planning. Pt accepted at [facility], ; fax [phone]. Bed available today. Physician notified. SS will await discharge orders and will proceed accordingly.
--- NOTE | 2019-12-28 11:49 | DS ---
DATE OF DISCHARGE: ADMISSION DIAGNOSES: Saddle embolism, pulmonary embolism. DISCHARGE DIAGNOSES: Resolving saddle embolism, resolving atrial fibrillation. HOSPITAL COURSE: The patient is a pleasant 69-year-old female who presented with pulmonary embolism. It was actually a saddle embolism. She did receive tPA. A few hours after tPA, we gave her heparin drip. Over the next few days, she improved, but she developed some AFib. We did have Cardiology and Pulmonary on the case. She was taken for cardioversion. Post-procedure, she did well. We discharged her to home with close outpatient followup on p.o. anticoagulation. DISPOSITION: Home. ACTIVITY: As tolerated. DIET: Low sodium. MEDICATIONS: She is on Eliquis. I gave her a prescription for that. Total time 34 minutes. TOTAL TIME: 34 minutes. TOO DARNELL DO DR: CRISTIAN/edith JOB#: [id number] / [id number]
--- NOTE | 2019-12-28 13:08 | PDOC ---
JONATHAN MEYER RADIO OPERATOR GROUND 12/28/19 1308: CARDIO Progress Notes Date and Time Date of Service 12/28/2019 Time of Evaluation 0930 Subjective Subjective: No Chest Pain, No shortness of breath, No Palpitations Vitals Vitals Vital Signs Date Time Temp Pulse Resp B/P (MAP) Pulse Ox O2 Delivery O2 Flow Rate FiO2 12/28/19 11:00 98.3 84 20 132/70 (90) 100 Nasal Cannula 2.0 98.3 Weight Weight [ ] Input and Output Intake and Output Intake and Output 12/28/19 07:00 Intake Total 840 ml Output Total 400 ml Balance 440 ml Intake Oral 840 ml Output Urine Total 400 ml # Voids 2 Laboratory Labs Laboratory Tests Test 12/28/19 05:56 White Blood Count 7.2 x10^3/uL (4.0-11.0) Red Blood Count 4.22 x10^6/uL (3.50-5.40) Hemoglobin 8.9 g/dL (12.0-15.5) Hematocrit 28.3 % (36.0-47.0) Mean Corpuscular Volume 67 fL (79-100) Mean Corpuscular Hemoglobin 21 pg (25-35) Mean Corpuscular Hemoglobin Concent 31 g/dL (31-37) Red Cell Distribution Width 22.2 % (11.5-14.5) Platelet Count 529 x10^3/uL (140-400) Neutrophils (%) (Auto) 64 % (31-73) Lymphocytes (%) (Auto) 23 % (24-48) Monocytes (%) (Auto) 6 % (0-9) Eosinophils (%) (Auto) 5 % (0-3) Basophils (%) (Auto) 1 % (0-3) Neutrophils # (Auto) 4.6 x10^3/uL (1.8-7.7) Lymphocytes # (Auto) 1.6 x10^3/uL (1.0-4.8) Monocytes # (Auto) 0.5 x10^3/uL (0.0-1.1) Eosinophils # (Auto) 0.4 x10^3/uL (0.0-0.7) Basophils # (Auto) 0.1 x10^3/uL (0.0-0.2) Sodium Level 140 mmol/L (136-145) Potassium Level 4.1 mmol/L (3.5-5.1) Chloride Level 102 mmol/L (98-107) Carbon Dioxide Level 33 mmol/L (21-32) Anion Gap 5 (6-14) Blood Urea Nitrogen 12 mg/dL (7-20) Creatinine 0.8 mg/dL (0.6-1.0) Estimated GFR (Cockcroft-Gault) 70.9 Glucose Level 108 mg/dL (70-99) Calcium Level 9.2 mg/dL (8.5-10.1) Microbiology Micro Microbiology 12/21/19 Urine Culture - Final, Complete 12/20/19 Blood Culture - Final, Complete NO GROWTH AFTER 5 DAYS Physical Exam HEENT: Neck Supple W Full Motion Chest: Symmetric LUNGS: Other (dimnished) Heart: RRR (SR) Abdomen: Soft N/T Extremities: No Edema Neurology: alert, oriented, follow commands Assessment Assessment 1. Chest pain: due to PE, AFIB and RV ischemia 2. Saddle PE with LLE DVT: saddle resolved with tPA but still has scattered emboli 3. AFIB RVR: induced by PE. maintaining SR post CVN 4. NSTEMI:multifactorial mainly associated with PE, RV ischemia. peaked trop at 31 5. Lumbar radiculopathy with significant decreased mobility with recent nontraumatic fall 6. Hypothyroidism: TSH 5 not on goal. on home replacement defer to PCP 7. Microcytic anemia: Fe def. Hgb at 8.9 8. CAD: Small amount of thrombus with 80% luminal obstruction in distal segment of posterior descending branch of right coronary artery which likely from paradoxical emboli from ASD. No lesions needing intervention were noted. 9. ASD: moderate secundum type atrial septal defect with bidirectional shunt. Will monitor as an outpt and consider for closure once PE is resolved Recommendations 1. Continue eliquis. ECASA 81 mg daily, monitor H/H, PLT 2. Continue amiodarone and metoprolol. 3. Supportive care 4. Lipids is well controlled. No statin at this time. No CAD per se but rather coronary embolization from the PE associated with ASD. 5. Follow up in office Justicifation of Admission Dx: Justifications for Admission: Justification of Admission Dx: Yes MANUEL WHIPPLE MD 12/28/19 1531: CARDIO Progress Notes Assessment Assessment Patient seen and examined. Agree with STAFFING EXECUTIVE's assessment and plan. s/p TREVOR guided cardioversion, maintaining sinus rhythm. Continue amiodarone for antiarrhythmic therapy. Continue Eliquis for stroke prophylaxis and for PE. We will consider percutaneous ASD closure as an outpatient since she had paradoxical embolization event/RCA thrombus resulting in non-STEMI. JONATHAN MEYER APRN Dec 28, 2019 13:08 MANUEL WHIPPLE MD Dec 28, 2019 15:31
[2019-12-28 15:30] VITALS: BP 133/64
[2019-12-28] MEDS ORDERED: IPRA4AER INH (15:31)
[2019-12-28] MEDS ORDERED: NITR0.4T24 SL (15:31)
[2019-12-28] MEDS ORDERED: METO50TA6 PO (15:31)
[2019-12-28] MEDS ORDERED: LACT1CAP19 PO (15:31)
[2019-12-28] MEDS ORDERED: APIX5TAB PO (15:31)
[2019-12-28] MEDS ORDERED: AMIO200T7 PO (15:31)
--- NOTE | 2019-12-28 15:32 | SNU/HH DC ---
DISCHARGE ORDERS DISCHARGE INFORMATION: DISCHARGE DATE: Dec 28, 2019 FINAL DIAGNOSIS Problems Medical Problems: (1) Atrial fibrillation with RVR Status: Acute (2) Chest pain Status: Acute (3) Saddle embolism of pulmonary artery Status: Acute (4) Suspected COVID-19 virus infection Status: Acute CONDITION ON DISCHARGE: Stable CODE STATUS: Code Status: Full CORRECTION: SNF STAY <30 DAYS: Yes POST DISCHARGE ORDERS: ACTIVITY ORDERS: No restrictions WEIGHT BEARING STATUS: No restrictions DIET AFTER DISCHARGE: Cardiac TREATMENT/EQUIPMENT ORDERS: Physical Therapy For: Evalulation/Treatment Occupational Therapy For: Evaluation/Treatment Speech Language Pathology For: Evaluation/Treatment DISCHARGE MEDICATIONS: Home Meds Active Scripts Lactobacillus Rhamnosus Gg (CULTURELLE) 1 Each Cap.sprink, 1 CAP PO BID for probiotic for 30 Days, #60 CAP Prov:LARON CAMACHO MD 12/28/19 Nitroglycerin (NITROSTAT) 0.4 Mg Tab.subl, 0.4 MG SL PRN Q5MIN PRN for CHEST PAIN for 30 Days, #25 TAB Prov:LARON CAMACHO MD 12/28/19 Metoprolol Tartrate (METOPROLOL TARTRATE) 50 Mg Tablet, 50 MG PO BID for rate control for 30 Days, #60 TAB Prov:LARON CAMACHO MD 12/28/19 Amiodarone Hcl (PACERONE) 200 Mg Tablet, 200 MG PO DAILY for a fib for 30 Days, #30 TAB Prov:LARON CAMACHO MD 12/28/19 Apixaban (ELIQUIS) 5 Mg Tablet, 10 MG PO BID for PE for 7 Days, #28 TAB Prov:LARON CAMACHO MD 12/28/19 Apixaban (ELIQUIS) 5 Mg Tablet, 5 MG PO BID for PE for 30 Days, #60 TAB Prov:LARON CAMACHO MD 12/28/19 Ipratropium/Albuterol Sulfate (COMBIVENT RESPIMAT INHAL) 4 Gm Aer.w.adap, 1 PUFF INH RTQID for dyspnea for 30 Days, #1 INH Prov:LARON CAMACHO MD 12/28/19 Reported Medications Cetirizine Hcl (CETIRIZINE HCL) 10 Mg Tablet, 1 TAB PO DAILY for ALLERGIES, #30 TAB 5 Refills 12/21/19 Oxybutynin Chloride (DITROPAN XL) 10 Mg Tab.er.24, 10 MG PO DAILY, TAB.SR 01/22/16 Sertraline Hcl (ZOLOFT) 100 Mg Tablet, 100 MG PO DAILY for ANTI-DEPRESSANT, TAB 0 Refills 01/22/16 Albuterol Sulfate (VENTOLIN HFA INHALER) 18 Gm Hfa.aer.ad, 2 PUFF INH QID for FOR ASTHMA, INHALER 0 Refills 01/22/16 Fluticasone/Salmeterol (ADVAIR 100-50 DISKUS) 1 Each Disk.w.dev, 1 INH IH BID, INHALER 01/22/16 Alprazolam (XANAX) 0.25 Mg Tablet, 0.25 MG PO PRN Q6HRS PRN for ANXIETY / AGITATION, TAB 0 Refills 01/22/16 Cyclobenzaprine Hcl (CYCLOBENZAPRINE HCL) 10 Mg Tablet, 10 MG PO TID, TAB 01/22/16 Levothyroxine Sodium (LEVOTHYROXINE SODIUM) 125 Mcg Tablet, 125 MCG PO DAILYAC for THYROID SUPPLEMENT, #30 TAB 0 Refills 01/22/16 Ranitidine Hcl (RANITIDINE HCL) 300 Mg Capsule, 300 MG PO DAILY, CAP 01/22/16 Tramadol Hcl (TRAMADOL HCL) 50 Mg Tablet, 50 MG PO DAILY PRN for PAIN, TAB 0 Refills 01/22/16 Nebivolol Hcl (BYSTOLIC) 5 Mg Tablet, 5 MG PO DAILY, TAB 01/22/16 LARON CAMACHO MD Dec 28, 2019 15:32
--- NOTE | 2019-12-28 15:39 | PDOC3 ---
Discharge Summary Visit Information Date of Admission: Dec 21, 2019 Date of Discharge: Dec 28, 2019 Admitting Diagnosis Comment: 1. Chest pain: due to PE, AFIB and RV ischemia Extensive acute pulmonary emboli to include a saddle embolism, emboli within both main pulmonary arteries and involvement of the lobar and segmental branches to all lung lobes. // pronounced right heart strain. No well-formed pulmonary infarct at this time. 2. Moderate-sized hiatal hernia, hepatic steatosis 3. Saddle PE ACUTE 4. AFIB RVR: 5. NSTEMI: likely associated RV ischemia with PE 6. Lumbar radiculopathy // recent nontraumatic fall 7. Hypothyroidism: TSH 5 8. Microcytic anemia: Fe 9. MORBID OBESITY Final Diagnosis Problems Medical Problems: (1) Atrial fibrillation with RVR Status: Acute (2) Chest pain Status: Acute (3) Saddle embolism of pulmonary artery Status: Acute (4) ruled out COVID-19 virus infection Status: Acute Acute hypoxic respiratory failure with worsening hypoxia secondary to saddle pulmonary embolism Markedly increased troponin level secondary to severe right ventricular infarct ion and ischemia Atrial fibrillation with rapid ventricular response induced by PE moderate tricuspid regurgitation with an estimated PAP of 71 mmHg. c/w severe pulm hypertension Status post cardiac cath yesterday no new stents placed Going for defibrillation today Hypertension Hyperlipidemia Lumbar radiculopathy with significant decreased mobility with recent nontraumatic fall Hypothyroidism Microcytic anemia Brief Hospital Course Allergies Allergies Coded Allergies Type Severity Reaction Last Updated Verified Sulfa (Sulfonamide Antibiotics) Allergy Intermediate 01/22/16 Yes Vital Signs Vital Signs Date Time Temp Pulse Resp B/P (MAP) Pulse Ox O2 Delivery O2 Flow Rate FiO2 12/28/19 11:00 98.3 84 20 132/70 (90) 100 Nasal Cannula 2.0 98.3 Lab Results Laboratory Tests Test 12/27/19 04:35 12/28/19 05:56 White Blood Count 8.3 x10^3/uL (4.0-11.0) 7.2 x10^3/uL (4.0-11.0) Red Blood Count 4.04 x10^6/uL (3.50-5.40) 4.22 x10^6/uL (3.50-5.40) Hemoglobin 8.5 g/dL (12.0-15.5) 8.9 g/dL (12.0-15.5) Hematocrit 27.2 % (36.0-47.0) 28.3 % (36.0-47.0) Mean Corpuscular Volume 67 fL (79-100) 67 fL (79-100) Mean Corpuscular Hemoglobin 21 pg (25-35) 21 pg (25-35) Mean Corpuscular Hemoglobin Concent 31 g/dL (31-37) 31 g/dL (31-37) Red Cell Distribution Width 22.7 % (11.5-14.5) 22.2 % (11.5-14.5) Platelet Count 495 x10^3/uL (140-400) 529 x10^3/uL (140-400) Neutrophils (%) (Auto) 72 % (31-73) 64 % (31-73) Lymphocytes (%) (Auto) 18 % (24-48) 23 % (24-48) Monocytes (%) (Auto) 5 % (0-9) 6 % (0-9) Eosinophils (%) (Auto) 5 % (0-3) 5 % (0-3) Basophils (%) (Auto) 1 % (0-3) 1 % (0-3) Neutrophils # (Auto) 5.9 x10^3/uL (1.8-7.7) 4.6 x10^3/uL (1.8-7.7) Lymphocytes # (Auto) 1.5 x10^3/uL (1.0-4.8) 1.6 x10^3/uL (1.0-4.8) Monocytes # (Auto) 0.4 x10^3/uL (0.0-1.1) 0.5 x10^3/uL (0.0-1.1) Eosinophils # (Auto) 0.4 x10^3/uL (0.0-0.7) 0.4 x10^3/uL (0.0-0.7) Basophils # (Auto) 0.1 x10^3/uL (0.0-0.2) 0.1 x10^3/uL (0.0-0.2) Sodium Level 140 mmol/L (136-145) 140 mmol/L (136-145) Potassium Level 4.1 mmol/L (3.5-5.1) 4.1 mmol/L (3.5-5.1) Chloride Level 102 mmol/L (98-107) 102 mmol/L (98-107) Carbon Dioxide Level 30 mmol/L (21-32) 33 mmol/L (21-32) Anion Gap 8 (6-14) 5 (6-14) Blood Urea Nitrogen 10 mg/dL (7-20) 12 mg/dL (7-20) Creatinine 0.9 mg/dL (0.6-1.0) 0.8 mg/dL (0.6-1.0) Estimated GFR (Cockcroft-Gault) 61.9 70.9 Glucose Level 107 mg/dL (70-99) 108 mg/dL (70-99) Calcium Level 9.2 mg/dL (8.5-10.1) 9.2 mg/dL (8.5-10.1) Laboratory Tests Test 12/28/19 05:56 White Blood Count 7.2 x10^3/uL (4.0-11.0) Red Blood Count 4.22 x10^6/uL (3.50-5.40) Hemoglobin 8.9 g/dL (12.0-15.5) Hematocrit 28.3 % (36.0-47.0) Mean Corpuscular Volume 67 fL (79-100) Mean Corpuscular Hemoglobin 21 pg (25-35) Mean Corpuscular Hemoglobin Concent 31 g/dL (31-37) Red Cell Distribution Width 22.2 % (11.5-14.5) Platelet Count 529 x10^3/uL (140-400) Neutrophils (%) (Auto) 64 % (31-73) Lymphocytes (%) (Auto) 23 % (24-48) Monocytes (%) (Auto) 6 % (0-9) Eosinophils (%) (Auto) 5 % (0-3) Basophils (%) (Auto) 1 % (0-3) Neutrophils # (Auto) 4.6 x10^3/uL (1.8-7.7) Lymphocytes # (Auto) 1.6 x10^3/uL (1.0-4.8) Monocytes # (Auto) 0.5 x10^3/uL (0.0-1.1) Eosinophils # (Auto) 0.4 x10^3/uL (0.0-0.7) Basophils # (Auto) 0.1 x10^3/uL (0.0-0.2) Sodium Level 140 mmol/L (136-145) Potassium Level 4.1 mmol/L (3.5-5.1) Chloride Level 102 mmol/L (98-107) Carbon Dioxide Level 33 mmol/L (21-32) Anion Gap 5 (6-14) Blood Urea Nitrogen 12 mg/dL (7-20) Creatinine 0.8 mg/dL (0.6-1.0) Estimated GFR (Cockcroft-Gault) 70.9 Glucose Level 108 mg/dL (70-99) Calcium Level 9.2 mg/dL (8.5-10.1) Brief Hospital Course History and Physical Date of Admission Date of Admission DATE: 12/20/19 TIME: 13:21 Identification/Chief Complaint Chief Complaint SEEN IN ER WITH ACUTE PE , 69 year old female who was brought here from home due to chest pain substernal started several hours ago. Patient called EMS, they gave her 324 mg aspirin and 1 dose of nitroglycerin. Patient says she has been sick with a cough for about 12 days. Patient denies any fever. Patient denies any history of heart problem. not sure if she been exposed to anybody who had coronavirus. CTA POS PE 12/28/2019 Patient did not complain of any discomfort at the time of discharge from her chest discomfort had resolved no palpitations no shortness of breath she did feel kind of weak and I have provided reassurance that this is been a consequence of her prolonged hospital stay. She was also reassured that given that her thrombus burden has decreased with the administration of TPA during her hospital stay her symptoms will continue to progress favorably especially once she starts her rehab facility program. Patient was seen in consultation by cardiology with the following recommendations upon dischargeRecommendations 1. Continue eliquis. ECASA 81 mg daily, monitor H/H, PLT 2. Continue amiodarone and metoprolol. 3. Supportive care 4. Lipids is well controlled. No statin at this time. No CAD per se but rather coronary embolization from the PE associated with ASD. 5. Follow up in office Justicifation of Admission Dx: Justifications for Admission: Justification of Admission Dx: Yes MANUEL WHIPPLE MD 12/28/19 1531: CARDIO Progress Notes Assessment Assessment Patient seen and examined. Agree with AUTO MACHINIST's assessment and plan. s/p TREVOR guided cardioversion, maintaining sinus rhythm. Continue amiodarone for antiarrhythmic therapy. Continue Eliquis for stroke prophylaxis and for PE. We will consider percutaneous ASD closure as an outpatient since she had paradoxical embolization event/RCA thrombus resulting in non-STEMI. 12/27/2019 No acute events reported overnight, case discussed with nursing staff patient in no acute distress no complaints during my visit 12/26/2019 Patient seen and examined She is going for defibrillation this morning Chart reviewed Discussed with RN Discussed with case management Cardiac cath yesterday without stents 12/25/2019 Patient seen and examined Resting with NAD Awaiting Cardiac Property Developer to r/o Coronary Artery Disease If negative cath, hope to change anticoagulant to PO Discussed with RN Reviewed chart. 12/23/2019 Patient seen and examined She just completed another repeat angiography of her chest I reviewed the films the saddle emboli seems to have resolved quite a bit by my eye (awaiting official report from radiologist) Discussed with RN Chart reviewed 12/22/2019 Patient seen and examined in ICU Patient is off BiPAP and down to 5L O2 per NC She received tPA yesterday, now on heparin drip COVID negative Discussed with RN Chart reviewed 12/21/19 Patient seen and examined in the ICU Hypoxia is worsening and she is requiring 100% oxygen on BiPAP Troponin increased to 31, she has begun tPA per Dr. Buckley Echo this AM showed normal LV wall motion, EF 50%, RV dilation secondary to tricuspid regurgitation Awaiting COVID results Discussed with RN Chart reviewed .Physical Exam HEENT: Neck Supple W Full Motion Chest: Symmetric LUNGS: Other (dimnished) Heart: RRR (SR) Abdomen: Soft N/T Extremities: No Edema Neurology: alert, oriented, follow commands Greater than 35 minutes were spent in the discharge process the patient in counseling coordination of care and arrangements for a safe transfer Discharge Information Condition at Discharge: Improved Follow Up: Weeks Disposition/Orders: D/C to Another Facility Scheduled Albuterol Sulfate (Ventolin Hfa Inhaler) 18 Gm Hfa.aer.ad, 2 PUFF INH QID for FOR ASTHMA, Ref 0 (Reported) Entered as Reported by: LANCE CHOW on 01/22/16 0932 Amiodarone Hcl (Pacerone) 200 Mg Tablet, 200 MG PO DAILY for a fib for 30 Days, #30 Prescribed by: LARON CAMACHO MD on 12/28/19 1531 Apixaban (Eliquis) 5 Mg Tablet, 5 MG PO BID for PE for 30 Days, #60 Prescribed by: LARON CAMACHO MD on 12/28/19 1531 Apixaban (Eliquis) 5 Mg Tablet, 10 MG PO BID for PE for 7 Days, #28 Prescribed by: LARON CAMACHO MD on 12/28/19 1531 Cetirizine Hcl (Cetirizine Hcl) 10 Mg Tablet, 1 TAB PO DAILY for ALLERGIES, #30 Ref 5 (Reported) Entered as Reported by: VERONICA ECHEVARRIA on 12/21/191517 Last Taken: UNKNOWN on Unknown Date & Time Last Action: New Order on 12/21/191517 by VERONICA ECHEVARRIA Cyclobenzaprine Hcl (Cyclobenzaprine Hcl) 10 Mg Tablet, 10 MG PO TID, (Reported) Entered as Reported by: LANCE CHOW on 01/22/16931 Last Action: Continued on 12/20/191843 by VERONICA ECHEVARRIA Fluticasone/Salmeterol (Advair 100-50 Diskus) 1 Each Disk.w.dev, 1 INH IH BID, (Reported) Entered as Reported by: LANCE CHOW on 01/22/16931 Ipratropium/Albuterol Sulfate (Combivent Respimat Inhal) 4 Gm Aer.w.adap, 1 PUFF INH RTQID for dyspnea for 30 Days, #1 Prescribed by: LARON CAMACHO MD on 12/28/191 Lactobacillus Rhamnosus Gg (Culturelle) 1 Each Cap.sprink, 1 CAP PO BID for probiotic for 30 Days, #60 Prescribed by: LARON CAMACHO MD on 12/28/19 1531 Levothyroxine Sodium (Levothyroxine Sodium) 125 Mcg Tablet, 125 MCG PO DAILYAC for THYROID SUPPLEMENT, #30 Ref 0 (Reported) Entered as Reported by: LANCE CHOW on 01/22/16931 Last Action: Continued on 12/20/191843 by VERONICA ECHEVARRIA Metoprolol Tartrate (Metoprolol Tartrate) 50 Mg Tablet, 50 MG PO BID for rate control for 30 Days, #60 Prescribed by: LARON CAMACHO MD on 12/28/19 1531 Nebivolol Hcl (Bystolic) 5 Mg Tablet, 5 MG PO DAILY, (Reported) Entered as Reported by: LANCE CHOW on 01/22/16931 Oxybutynin Chloride (Ditropan Xl) 10 Mg Tab.er.24, 10 MG PO DAILY, (Reported) Entered as Reported by: LANCE CHOW on 01/22/16931 Ranitidine Hcl (Ranitidine Hcl) 300 Mg Capsule, 300 MG PO DAILY, (Reported) Entered as Reported by: LANCE CHOW on 01/22/16931 Sertraline Hcl (Zoloft) 100 Mg Tablet, 100 MG PO DAILY for ANTI-DEPRESSANT, Ref 0 (Reported) Entered as Reported by: LANCE CHOW on 01/22/16931 Scheduled PRN Alprazolam (Xanax) 0.25 Mg Tablet, 0.25 MG PO PRN Q6HRS PRN for ANXIETY / AGITATION, Ref 0 (Reported) Entered as Reported by: LANCE CHOW on 01/22/16931 Last Action: Continued on 12/21/19 1520 by VERONICA ECHEVARRIA Nitroglycerin (Nitrostat) 0.4 Mg Tab.subl, 0.4 MG SL PRN Q5MIN PRN for CHEST PAIN for 30 Days, #25 Prescribed by: LARON CAMACHO MD on 12/28/19 1531 Tramadol Hcl (Tramadol Hcl) 50 Mg Tablet, 50 MG PO DAILY PRN for PAIN, Ref 0 (Reported) Entered as Reported by: LANCE CHOW on 01/22/16931 Last Action: Continued on 12/20/19 1844 by VERONICA ECHEVARRIA Justicifation of Admission Dx: Justifications for Admission: Justification of Admission Dx: Yes LARON CAMACHO MD Dec 28, 2019 15:39
--- NOTE | 2019-12-28 15:46 | NUR ---
SS following up with discharge planning. Discharge orders received for [facility] [place], ; fax [phone]. SS faxed discharge orders. Pt will discharge today and go to [facility] at 1530. [facility] to provide transportation. Pt, pt's RN, and pt's family notified.
--- NOTE | 2019-12-28 16:00 | NUR ---
Nurse exchange report called to KANWAL Jackson at [facility] . History and discharge orders reviewed. Prescriptions and doctors orders in packet and sent with [facility] transport team.
--- NOTE | 2019-12-28 16:29 | NUR ---
This RN informed Jenny pt's daughter of follow up appointment with Dr. Chaney Feb 07, 2020 at 1:[address] Awan February 14, 2020 at 9:45 AM.
[2020-01-01] MEDS ORDERED: APIXABAN 5 MG TABLET. PO SCH (09:00)
== END 2019-12-28 16:00 | DRG 280 ==
LOC: ER 11:24 → ED HOLD 13:17 → 1 WEST ICU 14:25 → 2 NORTH 12-22 16:46 → 6 SOUTH 12-23 13:54 → 2 NORTH 12-24 23:05
PROVIDERS: ADMIT Family Medicine; ATTEND Family Medicine
PROC: 5A09357 Assistance with Respiratory Ventilation, Less than 24 Consecutive Hours, Continuous Positive Airway Pressure (ICD-10-PCS; 2019-12-20)
PROC: 3E03317 Introduction of Other Thrombolytic into Peripheral Vein, Percutaneous Approach (ICD-10-PCS; 2019-12-21)
PROC: 5A09357 Assistance with Respiratory Ventilation, Less than 24 Consecutive Hours, Continuous Positive Airway Pressure (ICD-10-PCS; 2019-12-22)
PROC: 4A023N7 Measurement of Cardiac Sampling and Pressure, Left Heart, Percutaneous Approach (ICD-10-PCS; 2019-12-26)
PROC: 5A2204Z Restoration of Cardiac Rhythm, Single (ICD-10-PCS; 2019-12-26)
PROC: B24BZZ4 Ultrasonography of Heart with Aorta, Transesophageal (ICD-10-PCS; 2019-12-26)
PROC: B2111ZZ Fluoroscopy of Multiple Coronary Arteries using Low Osmolar Contrast (ICD-10-PCS; principal; 2019-12-26 10:00)
PROC: B2151ZZ Fluoroscopy of Left Heart using Low Osmolar Contrast (ICD-10-PCS; 2019-12-26 10:00)
DX: I21.4 Non-ST elevation (NSTEMI) myocardial infarction (principal); I26.92 Saddle embolus of pulmonary artery without acute cor pulmonale; J96.01 Acute respiratory failure with hypoxia; I82.402 Acute embolism and thrombosis of unspecified deep veins of left lower extremity; D50.9 Iron deficiency anemia, unspecified; E03.9 Hypothyroidism, unspecified; E66.01 Morbid (severe) obesity due to excess calories; E78.5 Hyperlipidemia, unspecified; F17.210 Nicotine dependence, cigarettes, uncomplicated; I10 Essential (primary) hypertension; I25.10 Atherosclerotic heart disease of native coronary artery without angina pectoris; I27.20 Pulmonary hypertension, unspecified; I48.91 Unspecified atrial fibrillation; J45.909 Unspecified asthma, uncomplicated; K76.0 Fatty (change of) liver, not elsewhere classified; M19.90 Unspecified osteoarthritis, unspecified site; M54.16 Radiculopathy, lumbar region; Z20.828 Contact with and (suspected) exposure to other viral communicable diseases; Z68.32 Body mass index [BMI] 32.0-32.9, adult; Z79.01 Long term (current) use of anticoagulants; Z82.49 Family history of ischemic heart disease and other diseases of the circulatory system; Z86.011 Personal history of benign neoplasm of the brain; Z90.49 Acquired absence of other specified parts of digestive tract; Z90.710 Acquired absence of both cervix and uterus; Z96.653 Presence of artificial knee joint, bilateral; G89.29 Other chronic pain; Z88.2 Allergy status to sulfonamides; I07.1 Rheumatic tricuspid insufficiency
CPT/HCPCS: 36415; 71045; 71275; 80048; 80053; 80061; 81001; 83605; 83690; 83735; 84100; 84443; 84484; 85025; 85027; 85379; 85520; 85610; 85730; 87040; 87086; 92960; 93005; 93306; 93312; 93458; 93970; 94640; 94660; 94667; 94760; 96365; 96375; 96376; 99152; 99153; C1769; C1892; J0282; J0696; J1160; J1644; J2250; J2405; J2704; J2997; J3010; J3490; J7030; J7060; Q9967; 97116-GP; 97530-GO; 97530-GP; 97535-GO; 99291-25; G0378; J7626; U0003-CS

== ENCOUNTER → 2020-02-19 | Outpatient (CLI) | payer MEDICARE ==
[~2020-02-19] MED LIST changes: +AMIO200T7 PO; +APIX5TAB PO; +CETI10TA16 PO; +CONTRAST GIVEN. MC PRN; +IOHEXOL 350 MG/ML 100 ML VIAL. IV ONE; +IPRA4AER INH; +LACT1CAP19 PO; +METO50TA6 PO; +NITR0.4T24 SL
--- NOTE | 2020-02-19 16:00 | RAD ---
EXAMINATION: VENOUS LOWER EXT BILATERAL HISTORY: Leg pain, history of PE COMPARISON/CORRELATION: None FINDINGS: Bilateral lower extremity duplex venous ultrasound exam was performed. Grayscale, color Doppler, and spectral Doppler imaging was performed. Compression and augmentation was performed. The right common femoral vein, superficial femoral vein, popliteal vein, and saphenofemoral junction are normal with no evidence of deep venous thrombus. The visualized calf veins are unremarkable. Normal compressibility and augmentation is evident. The left common femoral vein, superficial femoral vein, popliteal vein, and saphenofemoral junction are normal with no evidence of deep venous thrombus. The visualized calf veins are unremarkable although there is limited visualization of the left peroneal veins. Normal compressibility and augmentation is evident. IMPRESSION: Normal bilateral lower extremity duplex ultrasound exam. No evidence of deep venous thrombus involving the lower extremities. Electronically signed by: Arcadio Johnson MD (02/19/2020 3:57 PM) [facility]
--- NOTE | 2020-02-19 16:12 | RAD ---
Examination: CT ANGIOGRAPHY CHEST History: Reason: PE, DVT / Spl. Instructions: IV OMNI 350 100 MLS / History: Comparison/Correlation: 12/23/[address] chest Findings: Axial images of chest were obtained following IV contrast according to pulmonary arteriography protocol. Sagittal and coronal reformatted images were provided. Maximum intensity projection images provided. 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 Thoracic aorta is grossly unremarkable although evaluation is limited at the aortic root and ascending aorta due to motion. Pulmonary arterial vasculature is normal with no thromboembolic disease. Mosaic attenuation of the lung gregory is present. No pneumothorax. No pleural or pericardial effusion. No enlarged thoracic lymph nodes. Bony structures are unremarkable for the patient's age. Cholecystectomy noted. Moderate-sized hiatal hernia is present. Right renal superior pole cysts are present and do not meet follow-up. Impression: No pulmonary arterial thromboembolic disease identified. Previously evident PE has resolved. Mosaic attenuation of the lung gregory. This may represent small vessel or small airway disease. It is somewhat more evident in the interval although previously seen infiltrates have resolved. Moderate size hiatal hernia. PQRS Compliance Statement: One or more of the following individualized dose reduction techniques were utilized for this examination: 1. Automated exposure control 2. Adjustment of the mA and/or kV according to patient size 3. Use of iterative reconstruction technique Electronically signed by: Arcadio Johnson MD (02/19/2020 4:09 PM) [facility]
== END ==
LOC: US 15:14
PROVIDERS: ATTEND Internal Medicine Critical Care Medicine
DX: I26.99 Other pulmonary embolism without acute cor pulmonale (principal); K44.9 Diaphragmatic hernia without obstruction or gangrene; N28.1 Cyst of kidney, acquired; Z90.49 Acquired absence of other specified parts of digestive tract
CPT/HCPCS: 71275; 93970; Q9967